=== PATIENT | male | born 1960 | race Caucasian/White ===

== ENCOUNTER 2017-08-08 19:01 | Inpatient (IN) | payer OTHER, SELFPAY ==
[2017-08-08 19:21] LABS: Bilirubin Negative (Negative); Blood, Urine Negative (Negative); Glucose, Urine (Dipstick) >=1000 mg/dL (Negative); Ketone, Urine Trace mg/dL (Negative); Nitrite Negative (Negative); Protein, Urine (Dipstick) Negative (Neg-Trace)
[2017-08-08] MEDS ORDERED: Bupivacaine 0.25% HCL 30 ML VIAL ONE (20:54)
[2017-08-08] MEDS ORDERED: Midazolam HCl 2 mg/2 ml Vial ONE (21:00)
[2017-08-08] MEDS ORDERED: Fentanyl 250 MCG/5 ML VIAL ONE (21:00)
[2017-08-08] MEDS ORDERED: Glycopyrrolate 0.2 MG/ML 5 ML SYRINGE ONE (21:29)
[2017-08-08] MEDS ORDERED: Propofol 200 MG/20 ML VIAL ONE (21:29)
[2017-08-08] MEDS ORDERED: Succinylcholine Chloride 20 MG/ML 10 ml SYRINGE FS ONE (21:29)
[2017-08-08] MEDS ORDERED: Ondansetron HCl/PF 4 MG/2 ML Vial ONE (21:29)
[2017-08-08] MEDS ORDERED: Lidocaine 2% PF 10 ML AMP (For Epidural Use) ONE (21:29)
[2017-08-08] MEDS ORDERED: Dexamethasone 20 MG/5 ML VIAL ONE (21:29)
[2017-08-08] MEDS ORDERED: Ketorolac Tromethamine 30 MG/ML VIAL ONE (21:29)
--- NOTE | 2017-08-08 21:30 | PDOC.EVN ---
Event Note - Event Note Event Note: [id number] H&p dictated 1. Scrotal cellulitis and abcess 2. Pain 3. elevated bp plasn: see order
[2017-08-08] MEDS ORDERED: Neomycin-Polymyxin 1 ML AMP ONE (21:36)
--- NOTE | 2017-08-08 21:52 | RAD ---
PORTABLE CHEST ONE VIEW 08/08/17 at 9:03 p.m. HISTORY: Preoperative evaluation. FINDINGS: Comparison made to exam of 11/25/04. The heart size is borderline. The lungs are well expanded without focal areas of consolidation, pneu mothorax, swati pulmonary edema or pleural effusions. IMPRESSION: No acute process. POS: [facility]
--- NOTE | 2017-08-08 22:15 | ULT ---
BILATERAL TESTICULAR ULTRASOUND WITH DOPPLER: (Baig scale, color flow and spectral doppler) 08/08/17 HISTORY: Right scrotal swelling, cellulitis, necrosis, draining abscess in scrotum. FINDINGS: The right testis measures 3.1 x 4.4 x 1.8 cm and the left testis measures 2.7 x 4.8 x 2.6 cm. No alessandra ticular mass or microlithiasis is seen. Flow is demonstrated to both testes. No hydrocele is identif ied on either side. There is a 5 mm epididymal head cyst on the right. Flow is demonstrated to the right epididymis and the tail of the left epididymis. No definite flow is seen in the head of the left epididymis. There is thickening of the wall of the scrotum. No fluid collection is identified. IMPRESSION: Findings suggestive of scrotal cellulitis. POS: [facility]
[2017-08-08] MEDS ORDERED: HYDROcodone/Acetaminophen 5/325 mg Tablet PO PRN (22:19)
[2017-08-08] MEDS ORDERED: Acetaminophen 325 MG TAB PO PRN (22:19)
[2017-08-08] MEDS ORDERED: Ondansetron HCl/PF 4 MG/2 ML Vial IVP PRN ×2 (22:19→23:22)
[2017-08-08] MEDS ORDERED: cloNIDine 0.1 MG TAB PO PRN (22:22)
[2017-08-08] MEDS ORDERED: Vancomycin HCl 1.5 GM in Sodium Chloride 0.9% 250 ML 300 ML IVPB SCH (22:30)
[2017-08-08] MEDS ORDERED: Albuterol Sulfate HFA (OR ONLY) ONE (22:43)
[2017-08-08] MEDS ORDERED: Morphine 2 MG/ML SYRINGE IVP PRN (22:43)
[2017-08-08] MEDS ORDERED: HYDROcodone/Acetaminophen 10/325 mg Tablet PO PRN ×2 (22:59)
[2017-08-08] MEDS ORDERED: Morphine 2 MG/ML SYRINGE SLOW IVP PRN (22:59)
[2017-08-08] MEDS ORDERED: Promethazine HCl 25 MG/ML VIAL SLOW IVP PRN (23:22)
[2017-08-08] MEDS ORDERED: Promethazine HCl 25 MG/ML VIAL IM PRN (23:22)
[2017-08-08] MEDS ORDERED: Fentanyl 100 MCG/2 ML VIAL ONE (23:33)
[2017-08-08] MEDS ORDERED: hydrALAZINE 20 MG/ML VIAL ONE (23:45)
--- NOTE | 2017-08-09 00:13 | HP ---
DATE OF ADMISSION: 08/08/2017 CHIEF COMPLAINT: Scrotal swelling and penile swelling. HISTORY OF PRESENT ILLNESS: Patient is 56 years old male with no significant past medical history, noncompliant, does not follow with anybody, history of alcohol abuse, now came to the ER because of scrotal swelling and penile swelling. The patient initially noticed a boil on the scrotum on and after that Monday, he started having worsening pain and swelling, then Monday he had r uptured and then started having drainage from the scrotal side, constant drainage associated with se jazzmine pain and swelling. He started noticing penile swelling also. Pain even with the touch. Pain is 10/10, constant, worsens with the touch, some relieve with pain medication. Denies any fever, de nies any chills, denies any cough, denies sputum production, denies any chest pain, denies any troub le breathing, denies dizziness, denies lightheadedness. PAST MEDICAL HISTORY: As per HPI. PAST SURGICAL HISTORY: None. SOCIAL HISTORY: Positive for smoking, positive for alcohol, denies any drugs. FAMILY HISTORY: Denies any heart problems. REVIEW OF SYSTEMS: Constitutional: Denies any fever, denies any chills. Eyes: Vision problems. Denies any hearing loss. Neck: Denies neck pain. Cardiovascular system: Denies any chest pain, d enies palpitations. Respiratory system: Denies any cough, denies sputum production. Gastrointesti nal: Denies abdominal pain, denies nausea or vomiting. Genitourinary: Positive for scrotal swelli ng. Positive for penile swelling. Musculoskeletal: Denies any joint deformities. Integumentary: Positive for arrhythmia. Psychiatric: Denies any depression, anxiety. All other review of system s are reviewed and are negative. PHYSICAL EXAMINATION: CONSTITUTIONAL/VITAL SIGNS: At the time of H and P performed, blood pressure is 191/94, pulse ox 94 %, respiratory rate 20, heart rate 80. GENERAL: The patient appears comfortable. HEENT: Pupils equal, round, and reactive. Anterior naris patent. Nose normal. Ears normal. Teet h intact. Tongue is moist. NECK: Supple. No JVD. CARDIOVASCULAR: S1, S2 present. Regular rate and rhythm. No murmurs, no rubs, no gallops. RESPIRATORY SYSTEM: No wheezing, no rhonchi. Breath sounds bilaterally. GASTROINTESTINAL: Abdomen, soft, nontender, no guarding, no organomegaly, no masses felt. MUSCULOSKELETAL: Positive for scrotal swelling, positive for drainage seen. Positive for edema. P ositive for swelling, positive for tender to palpate. Positive for penile swelling also. PSYCHIATRIC: Mood is appropriate at this time. CRANIAL NERVE SYSTEM: Awake, follows commands. Strength intact, sensory intact. INTEGUMENTARY: Positive for scrotal erythema and penile erythema. LABORATORY DATA: At the time of H and P performed, white count 6.5, hemoglobin 15.4, platelet count is 290. Sodium 131, potassium 4, chloride is 92, CO2 26, BUN of 12, creatinine of 1.01. AST 21, A LT 27, alkaline phosphatase is 152. Serum protein 7.2, albumin 3.6. UA specific gravity 1.05, gluc ose greater than 1000. ASSESSMENT AND PLAN: The patient is 56 years old male admitted with scrotal pain. 1. Scrotal cellulitis/abscess. CT head done in the outside ER showed possible gas collection. ED physician already spoke to the urologist. The patient is on the way to the operating room for I and D. We will keep the patient n.p.o. We will start patient on broad-spectrum antibiotics. We will consult ID to evaluate the patient also. 2. Pain, p.r.n. pain meds. 3. Elevated blood pressure. Need to the monitor blood pressure closely. We will start patient on p.r.n. clonidine, p.r.n., hydralazine. The case was discussed in detail with the patient. Patient is FULL CODE.
--- NOTE | 2017-08-09 01:16 | OP ---
DATE OF PROCEDURE: 08/08/2017 PREOPERATIVE DIAGNOSIS: Right groin abscess. POSTOPERATIVE DIAGNOSIS: Right groin abscess. PROCEDURE: Debridement, incision and drainage and wound VAC placement, right groin abscess. SURGEON: Wally Chatterjee M.D. ANESTHESIA: General. ESTIMATED BLOOD LOSS: Minimal. COMPLICATIONS: None. SPECIMEN: Cultures taken. FINDINGS: Tracks up to anterior medial thigh and to the medial right thigh going distally towards t he knee. I was called in to the OR by Dr. Karimi for this was the presumed scrotal abscess bec winston more into the groin. She was concerned because it was tracking more towards the vessels. TECHNIQUE: I was called to the OR, the patient was already prepped and draped and the wound had alr matt been opened. More debridement was performed. The wound is tunneling more lateral. This was o pened up by me to a larger pocket. No significant additional purulence was obtained. There was no necrotic tissue. The wound was irrigated. A wound VAC was placed in the OR. The patient was en ro iqugmiut to recovery in stable condition. All instrument counts, needle counts, and lap counts were erik ect.
[2017-08-09] MEDS: Sodium Chloride 0.9% 1,000 ML IV SCH ×4 (01:18→20:10)
[2017-08-09] MEDS: Piperacillin/Tazobactam 3.375 GM in Sodium Chloride 0.9% 100 ML IVPB SCH ×5 (01:18→23:39)
--- NOTE | 2017-08-09 01:47 | OP ---
PREOPERATIVE DIAGNOSIS: Rule out right scrotal inguinal abscess with necrotizing fasciitis. POSTOPERATIVE DIAGNOSIS: Rule out right scrotal inguinal abscess with necrotizing fasciitis. PROCEDURE: Right groin debridement, Miller catheter placement. SURGEON: Suki Karimi D.O. ANESTHESIA: General. COMPLICATIONS: None apparent. INTRAOPERATIVE CONSULTATION: General Surgery to rule out right inguinal, thigh fasciitis. INTRAOPERATIVE CULTURES: Wound cultures obtained. ESTIMATED BLOOD LOSS: Minimal. COMPLICATIONS: None apparent. DRAINS: A 16-Guinean coude Miller catheter to gravity 10 mL balloon, wound VAC placed by General Surgery. INDICATIONS FOR THE PROCEDURE AND HISTORY: Mr. Thompson is a 56-year-old male with history of chronic alcohol abuse, tobacco abuse, who presented with 4-days history of right groin discharge. He states that this started has a small boil in this region, then subsequently had spontaneous rupture or pustular drainage. Due to progressive swelling of the scrotum, foreskin he presented to the emergency room. CT demonstrated a small pocket of air in his right groin, as this was concerning for necrotizing fasciitis. The patient was advised regarding emergent intraoperative exam under anesthesia. Physical exam in the emergency room was limited due to patient having significant discomfort. Indications for surgical exploration was discussed with him in detail and all questions were answered to his satisfaction. He desired to proceed. DESCRIPTION OF THE PROCEDURE: After an informed consent is signed, the patient is taken to the operating room, placed in a dorsal lithotomy position with the genital area prepped and draped in the usual surgical sterile fashion. The patient was placed in the dorsal lithotomy position and the genital area was inspected. There was a malodor discharged from the patient's groin region. There was reactive erythema of the scrotum and the foreskin. The foreskin was able to be retracted without difficulty and a 16 Guinean coude catheter was passed without any resistance and clear yellow urine was obtained. Digital rectal exam demonstrated no significant nodularity volume approximately 25-30 grams. Physical exam demonstrated 2-3 areas of spontaneous opening in his right groin at the junction of the thigh and the inguinal canal. There was pustular discharge draining from this region. I did open this connecting the skin defect, which demonstrated minimal purulent discharge as this cavity was empty from spontaneous drainage. There was some indurated subcutaneous tissue underneath just superior to the medial aspect of the thigh. The wound was able to be probe to the superior aspect of the inguinal canal. I did not see any gross purulent discharge. Wound culture was obtained. I did inspect the lateral aspect of the scrotum, the area of the cavity that was spontaneously draining did not involve the dartos fascia of the right hemiscrotum. I did probe the subcutaneous tissue, which demonstrated no evidence of fluctuance, loculated cavity involving the right deeper structures of the scrotum. As I was probing the wound, I could not rule out a medial thigh or inguinal abscess. General Surgery consultation was obtained intraoperatively, Dr. Chatterjee explored the medial thigh in the inguinal region and subsequently placed a wound VAC. Please see his operative report for dictation. The patient was then transported to the recovery room in stable condition. As he has hyponatremia consistent with chronic alcohol use, elevated blood sugars consistent with occult diabetes. The patient is to be admitted under medical service for strict control of his diabetes and broad-spectrum antibiotics and wound VAC is to continue. DUANE
[2017-08-09] MEDS: Vancomycin HCl 1.5 GM in Sodium Chloride 0.9% 250 ML 300 ML IVPB SCH ×2 (02:14→13:41)
[2017-08-09 04:13] VITALS: BMI 43.5
[2017-08-09 04:19] LABS: #Lymphocytes 0.5 thou/uL (1.20-3.40); #Monocytes 0.2 thou/uL (0.11-0.59); #Neutrophils 6.3 thou/uL (1.40-6.50); %Basophils 0.3 % (0.0-1.0); %Eosinophils 0.1 % (0.0-10.0); %Lymphocytes 7.5 % (21.0-51.0); %Monocytes 2.2 % (0.0-10.0); Hematocrit 42.7 % (42.0-52.0); Red Blood Cell (RBC) Count 4.16 mill/uL (4.70-6.10); White Blood Cell (WBC) Count 7.1 thou/uL (4.8-10.8)
[2017-08-09 04:34] LABS: Anion Gap 13 mmol/L (10-20); BUN (Urea Nitrogen) 8 mg/dL (8.4-25.7); Calc. Creatinine Clearance 186 mL/min (70-130); Calcium 8.5 mg/dL (7.8-10.44); Carbon Dioxide 26 mmol/L (22-29); Chloride 99 mmol/L (98-107); Estimated GFR-MDRD Greater than 90
[2017-08-09] MEDS ORDERED: Dextrose 50% Abboject 50 ML SYRINGE IVP PRN (05:20)
[2017-08-09] MEDS ORDERED: Dextrose 5% in Water 1,000 ML IV PRN (05:20)
[2017-08-09] MEDS: HumaLOG 300 UNITS/3 ML VIAL SC PRN ×2 (06:00→16:35)
--- NOTE | 2017-08-09 06:03 | CON ---
DATE OF CONSULTATION: 08/08/2017 REASON FOR CONSULTATION: Right scrotal groin abscess, rule out Sivakumar's gangrene, necrotizing fasciitis. HISTORY OF PRESENT ILLNESS: Mr. Thompson is a 56-year-old male, denies past medical history, history of chronic alcohol abuse, presents for evaluation of right groin, scrotal swelling. He states that this started off as a small boil along his right groin however, it spontaneously ruptured on Monday. Due to progressive increased swelling and discomfort of his right hemiscrotum and also difficulty retracting his foreskin, he presented to [facility] Emergency Room. CT of the abdomen and pelvis with IV contrast was obtained demonstrating small focus of air in the right groin region , therefore, transitioned to [facility] for higher level of care. Upon presentation, he is afebrile, resting comfortably. He has received Zosyn, vancomycin, Novolin as his sugar was found to be grossly elevated over 500. His urinalysis demonstrates greater than 1000 glucose. He denies history of diabetes. He has approximately 7-8 drinks per day, has history of tobacco abuse 20 pack years. Denies illicit drug use. He denies history of hepatitis, sexually transmitted disease, otherwise his urinary flow is adequate per patient. 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 PAST MEDICAL HISTORY: As above. PAST SURGICAL HISTORY: None, denied by patient. PSYCHIATRIC HISTORY: Negative. SOCIAL HISTORY: Chronic alcohol use, 7 drinks per day. Denies illicit drug use , [id number] smoking history. ALLERGIES: No known drug allergies. HOME MEDICATIONS: None. The patient has received vancomycin, Zosyn, Novolin R in the emergency room. PHYSICAL EXAMINATION: VITAL SIGNS: Stable at 97.8, 98% on room air. Blood pressure is elevated at 170/103, currently 145/90. HEENT: Grossly unremarkable. GENERAL: The patient is somewhat disheveled, poorly kempt. HEART: Regular rate. LUNGS: Clear. ABDOMEN: Protuberant, obese, globular. GENITOURINARY: Demonstrates uncircumcised phallus, there is evidence of prepucial edema which I have difficulty retracting the foreskin as he has discomfort. The left hemiscrotum is grossly unremarkable with the testes palpated within the scrotal sac. The right testis and the hemiscrotum is tender to touch. Therefore, a physical exam is suboptimal. However, I was able to see a fistulous tract along his right groin lateral to the scrotum, draining pustular drainage with mal odorous discharge. There is no gross crepitus per se, but there is reactive erythema of his groin, and his right lateral scrotum. Again, physical exam is somewhat suboptimal and he is not cooperative due to discomfort. EXTREMITIES: No cyanosis, clubbing or edema. PERTINENT LABORATORY DATA: White count is 6, hemoglobin 15, platelets 290. Sodium 131, BUN 12, creatinine 1.0. Lactic acid is normal. LFTs; alkaline phosphatase is 152. Urinalysis; 1000 glucose, otherwise unremarkable. CT of the abdomen and pelvis with IV contrast demonstrates kidney, bladder grossly unremarkable. There is a small focus of air in the right groin region consistent with the physical exam draining discharge. KENY is deferred at this time. Scrotal ultrasound demonstrates bilateral flow with thickening of the scrotal skin consistent with cellulitis. IMPRESSION AND PLAN: Mr. Thompson is a 56-year-old male with a right groin lateral scrotal abscess. The focus of air in the CAT scan is consistent with fistulous tract that is open draining pustular drainage. There is no gross crepitus on exam. However, given the extent of drainage and physical exam, recommend exam under anesthesia wide debridement. Possible right orchiectomy, wide debridement of adjacent structures discussed with patient in detail and he desires to proceed. Discussed with Hospitalist. We will admit for medical admission due to diabetes, hyponatremia, uncontrolled hypertension. DUANE
[2017-08-09 08:54] LABS: Hemoglobin A1c 12.5 % (4.0-6.0)
[2017-08-09] MEDS ORDERED: FLU VACC QS2017-18 36 mo. & older 0.5 ML SYRINGE IM ONE (09:00)
--- NOTE | 2017-08-09 09:06 | PRG ---
DATE OF SERVICE: 08/09/2017 SUBJECTIVE: The patient is resting comfortably. PHYSICAL EXAMINATION: VITAL SIGNS: Vital signs are stable, afebrile. ABDOMEN: Soft, nontender, nondistended. GENITOURINARY: A wound VAC is in place. The penile scrotal tissue demonstrates some reactive erythema and edema. There is no gross evidence of crepitus, induration, fluctuance appreciated. Miller catheter draining concentrated yellow urine. EXTREMITIES: No cyanosis, clubbing or edema. IMPRESSION AND PLAN: 1. Mr. Thompson is a 56-year-old male with history of chronic alcohol abuse. 2. History of tobacco abuse. 3. Presented with right groin abscess. Status post incision and drainage/ .debridement Intraoperative findings and exam under anesthesia demonstrates no evidence of scrotal involvement. Intraoperative consultation with General Surgery was obtained to rule out medial thigh abscess. Wound VAC placed by General Surgery. Wound culture was obtained which is pending thus far. Recommend continue broad spectrum antibiotics. May remove his Miller catheter tomorrow call with any questions or concerns or concerning regarding scrotal involvement. DUANE
[2017-08-09] MEDS: Tamsulosin HCl 0.4 MG CAP PO SCH (09:09)
[2017-08-09] MEDS ORDERED: Ondansetron ODT 4 MG TAB PO PRN (09:22)
[2017-08-09] MEDS ORDERED: Loperamide HCl 2 MG CAP PO PRN (09:22)
[2017-08-09] MEDS ORDERED: Chloraseptic Spray 180 ml Bottle PO PRN (09:22)
[2017-08-09] MEDS ORDERED: Mag-Al 1200 mg/1200 mg/30 ML UDCUP PO PRN (09:22)
[2017-08-09] MEDS ORDERED: Senokot 8.6 MG TAB PO PRN (09:22)
[2017-08-09] MEDS ORDERED: Diabetic Tussin 200 MG/10 ML UDCUP PO PRN (09:22)
[2017-08-09] MEDS ORDERED: Temazepam 15 MG CAP PO PRN (09:22)
[2017-08-09] MEDS ORDERED: traMADol HCl 50 MG TAB PO PRN (09:22)
[2017-08-09] MEDS ORDERED: Sodium Chloride 0.65% Nasal 44 ML BOT EA NARE PRN (09:22)
[2017-08-09] MEDS ORDERED: HYDROcodone/Acetaminophen 5/325 mg Tablet PO PRN (09:22)
[2017-08-09] MEDS ORDERED: Eucerin (Mineral Oil/Petrolatum,White) 30 gm Jar TOP PRN (09:22)
[2017-08-09] MEDS ORDERED: Artificial Tears 18 DROP/0.9 ML EA EYE PRN (09:22)
[2017-08-09] MEDS ORDERED: Loratadine 10 MG TAB PO PRN (09:22)
[2017-08-09] MEDS ORDERED: Milk Of Magnesia 30 ML UDCUP PO PRN (09:22)
--- NOTE | 2017-08-09 10:47 | PDOC.PN ---
- Subjective Encounter Start Date: 08/09/17 Encounter Start Time: 09:50 -: old records requested/rev Patient seen and examined. No new complaints. No overnight events - Objective Resuscitation Status: Resuscitation Status FULL:Full Resuscitation MAR Reviewed: Yes Vital Signs & Weight: Vital Signs (12 hours) Temp Pulse Resp BP Pulse Ox 08/09/17 08:30 97.6 F 77 20 143/75 H 94 L 08/09/17 04:00 98.6 F 90 20 145/76 H 97 08/09/17 02:19 92 18 135/79 95 08/09/17 01:10 98.4 F 95 18 164/81 H 93 L 08/09/17 00:42 81 12 96 08/09/17 00:00 98.4 F 95 18 94 L Weight Weight 270 lb 1.06 oz I&O: 08/08/17 08/09/17 08/10/17 06:59 06:59 06:59 Intake Total 1100 Output Total 850 Balance 250 Result Diagrams: 08/09/17 03:49 08/09/17 03:49 Additional Labs: Accuchecks 08/09/17 08/08/17 04:41 23:04 POC Glucose 270 H 220 H Phys Exam - Physical Examination Constitutional: NAD HEENT: PERRLA, moist MMs, sclera anicteric Neck: no JVD, supple Respiratory: no wheezing, no rales, no rhonchi Cardiovascular: RRR, no significant murmur, no rub Gastrointestinal: soft, non-tender, no distention, positive bowel sounds Musculoskeletal: no edema, pulses present wound vac+ at surgical site Neurological: non-focal, normal sensation, moves all 4 limbs Lymphatic: no nodes Psychiatric: normal affect, A&O x 3 Skin: no rash, normal turgor Dx/Plan (1) Abscess of groin, right Code(s): L02.214 - CUTANEOUS ABSCESS OF GROIN Status: Acute Comment: s/p I & D and now wound care (2) Cellulitis of scrotum Code(s): N49.2 - INFLAMMATORY DISORDERS OF SCROTUM Status: Acute (3) Hypertension Code(s): I10 - ESSENTIAL (PRIMARY) HYPERTENSION Status: Acute (4) New onset type 2 diabetes mellitus Code(s): E11.9 - TYPE 2 DIABETES MELLITUS WITHOUT COMPLICATIONS Status: Acute (5) Alcohol abuse Code(s): F10.10 - ALCOHOL ABUSE, UNCOMPLICATED Status: Chronic (6) Macrocytosis without anemia Code(s): D75.89 - OTHER SPECIFIED DISEASES OF BLOOD AND BLOOD-FORMING ORGANS Status: Chronic (7) Morbid obesity with BMI of 40.0-44.9, adult Code(s): E66.01 - MORBID (SEVERE) OBESITY DUE TO EXCESS CALORIES; Z68.41 - BODY MASS INDEX (BMI) 40.0-44.9, ADULT Status: Chronic - Plan cont current plan of care, continue antibiotics, outreach and education social worker * start glyburide 2.5 mg and metformin 1000 mg po bid * checked HBA1c, TSH and lipid profile * start lisnopril 5 mg po daily * continue vancomycin and zosyn * wound care * continue pain control * medication reviewed as below * symptomatic treatment * dietary and diabetic education * start folic acid, thiamin, B12 therapy * counselled to avoid alcohol. Review of Systems - Review of Systems ENT: negative: Ear Pain, Ear Discharge, Nose Pain, Nose Discharge, Nose Congestion, Mouth Pain, Mouth Swelling, Throat Pain, Throat Swelling, Other Respiratory: negative: Cough, Dry, Shortness of Breath, Hemoptysis, SOB with Excertion, Pleuritic Pain, Sputum, Wheezing Cardiovascular: negative: Chest Pain, Palpitations, Orthopnea, Paroxysmal Noc. Dyspnea, Edema, Light Headedness, Other Gastrointestinal: negative: Nausea, Vomiting, Abdominal Pain, Diarrhea, Constipation, Melena, Hematochezia, Other Genitourinary: negative: Dysuria, Frequency, Incontinence, Hematuria, Retention , Other Musculoskeletal: negative: Neck Pain, Shoulder Pain, Arm Pain, Back Pain, Hand Pain, Leg Pain, Foot Pain, Other - Medications/Allergies Allergies/Adverse Reactions: Allergies Allergy/AdvReac Type Severity Reaction Status Date / Time No Known Drug Allergies Allergy Verified 08/08/17 22:45 Medications: Current Medications Acetaminophen (Tylenol) 650 mg PO Q4H PRN PRN Reason: Headache/Fever or Pain Hydrocodone Bitart/Acetaminophen ([place] 10/325) 1 tab PO Q4H PRN PRN Reason: Mild-Moderate Pain (1-5) Hydrocodone Bitart/Acetaminophen ([place] 10/325) 2 tab PO Q4H PRN PRN Reason: Moderate to Severe Pain (6-10) Hydrocodone Bitart/Acetaminophen ([place] 5/325) 1 tab PO Q4H PRN PRN Reason: Moderate Pain (4-6) Al Hydroxide/Mg Hydroxide (Maalox) 15 ml PO Q4H PRN PRN Reason: Heartburn or Indigestion Artificial Tears (Tears Naturale) 0 drop EA EYE PRN PRN PRN Reason: Dry Eyes Clonidine HCl (Catapres) 0.1 mg PO Q4H PRN PRN Reason: SBP GREATER THAN 160 Cyanocobalamin (Vitamin B-12) 1,000 mcg PO DAILY [facility] Dextrose/Water (Dextrose 50%) 25 gm IVP PRN PRN PRN Reason: HYPOGLYCEMIA PROTOCOL Famotidine (Pepcid) 20 mg PO BID [facility] Folic Acid (Folvite) 1 mg PO DAILY [facility] Glucagon (Glucagon) 1 mg IM PRN PRN PRN Reason: HYPOGLYCEMIA PROTOCOL Glyburide (Micronase) 2.5 mg PO QAM-WM [facility] Guaifenesin (Robitussin Sf) 200 mg PO Q4H PRN PRN Reason: Cough Hydralazine HCl (Apresoline) 10 mg SLOW IVP Q4H PRN PRN Reason: SBP Greater Than 170 Sodium Chloride (Normal Saline 0.9%) 1,000 mls @ 150 mls/hr IV .Q6H40M [facility] Last Admin: 08/09/17 06:47 Dose: Not Given Piperacillin Sod/Tazobactam (Sod 3.375 gm/ Sodium Chloride) 100 mls @ 200 mls/ hr IVPB Q6HR [facility] Last Admin: 08/09/17 05:57 Dose: 100 mls Vancomycin HCl 1.5 gm/ Sodium (Chloride) 300 mls @ 200 mls/hr IVPB Q12H [facility] Last Admin: 08/09/17 02:14 Dose: 300 mls Dextrose/Water (D5w) 1,000 mls @ 0 mls/hr IV INF PRN; As Directed PRN Reason: HYPOGLYCEMIA PROTOCOL Insulin Human Lispro (Humalog) 0 units SC .MODERATE SLIDING SC PRN; Protocol PRN Reason: MODERATE SLIDING SCALE Last Admin: 08/09/17 06:00 Dose: 8 unit Lisinopril (Zestril) 5 mg PO DAILY [facility] Loperamide HCl (Imodium) 2 mg PO PRN PRN PRN Reason: Diarrhea/Loose Stools Loratadine (Claritin) 10 mg PO DAILYPRN PRN PRN Reason: Sinus Symptoms Magnesium Hydroxide (Milk Of Magnesium) 30 ml PO DAILYPRN PRN PRN Reason: Constipation Metformin HCl (Glucophage) 1,000 mg PO BID-WM [facility] Mineral Oil/White Petrolatum (Eucerin Cream) 0 gm TOP BIDPRN PRN PRN Reason: Dry Skin Morphine Sulfate (Morphine Sulfate) 2 mg SLOW IVP Q4H PRN PRN Reason: Mild-Moderate Pain (1-5) Morphine Sulfate (Morphine Sulfate) 4 mg SLOW IVP Q4H PRN PRN Reason: Moderate to Severe Pain (6-10) Last Admin: 08/09/17 06:05 Dose: 4 mg Ondansetron HCl (Zofran) 4 mg IVP Q6H PRN PRN Reason: Nausea/Vomiting Ondansetron HCl (Zofran Odt) 4 mg PO Q6H PRN PRN Reason: Nausea/Vomiting Phenol (Chloraseptic [place] 180 Ml Bot) 0 ml PO PRN PRN PRN Reason: Sore Throat Saccharomyces Boulardii (Florastor) 250 mg PO DAILY [facility] Senna (Senokot) 2 tab PO HSPRN PRN PRN Reason: Constipation Sodium Chloride (Flush - Normal Saline) 10 ml IVF PRN PRN PRN Reason: Saline Flush Sodium Chloride (Sharkey Nasal [place] 0.65%) 0 ml EA NARE QIDPRN PRN PRN Reason: Nasal Congestion Tamsulosin HCl (Flomax) 0.4 mg PO DAILY [facility] Last Admin: 08/09/17 09:09 Dose: 0.4 mg Temazepam (Restoril) 15 mg PO HSPRN PRN PRN Reason: Insomnia Thiamine HCl (Thiamine) 100 mg PO DAILY [facility] Tramadol HCl (Ultram) 50 mg PO Q4H PRN PRN Reason: Moderate Pain (4-6)
[2017-08-09] MEDS: metFORMIN 500 MG TAB PO SCH (16:35)
[2017-08-09] MEDS: Famotidine 20 MG TAB PO SCH (20:09)
--- NOTE | 2017-08-09 20:32 | CON ---
DATE OF CONSULTATION: 08/09/2017 REASON FOR CONSULTATION: Scrotal abscess. HISTORY OF PRESENT ILLNESS: A 56-year-old, second admission to this hospital, who developed an infl ammatory process in the right groin and was admitted yesterday. He initially developed right-sided scrotal swelling and he noticed a small abscess in that location, which he proceeded to squeeze and drained. This was followed by progressively worsening pain and swelling. No headaches, no visual s ymptoms, sore throat, odynophagia, dysphagia, no cough or sputum production or chest pain, no abdomi nal pain, no diarrhea, no joint symptoms. No back pain. PAST MEDICAL HISTORY: Includes excessive intake of alcoholic beverages, probably alcoholic beverage dependency syndrome. PAST SURGICAL HISTORY: Negative. SOCIAL HISTORY: He works with septic tanks, drinks daily up to 9 beers a day and smokes half pack a day. He is from his previous many years ago. Lives in [place] by himself. FAMILY HISTORY: Noncontributory. CURRENT MEDICATIONS: Include Zosyn and vancomycin, clonidine and Pepcid. PHYSICAL EXAMINATION: VITAL SIGNS: Temperature normal. Blood pressure 160/80, pulse 78, respirations 20, O2 saturation 9 7%. SKIN: Shows the area in the scrotal tissue with prior area of drainage in a negative pressure dress ing. There is swelling of the penile area and mild swelling of the scrotum, some erythema noted. P eripheral IV access. No lymphadenopathy. HEENT: Quite a bit of facial flushing. Periorbital edema. Conjunctivae are normal. Oral cavity i s normal. Numerous teeth in place with quite a bit of decay and gum disease. NECK: Supple, no jugular venous distention. LUNGS: With symmetric clear breath sounds. HEART: S1 and S2, regular rate. No S3 or S4. ABDOMEN: Soft, not distended or tender. No ascites. No bladder distention. EXTREMITIES: Pulses are 2+ in dorsalis pedis. No joint inflammatory activity. Moves all extremiti es equally. Plantar responses are flexor. No clonus. NEUROLOGIC: Cognitive function appears to be intact. LABORATORY DATA: White cell count 6.5-7.1, hemoglobin 15, and platelets 290 with 89% neutrophils. Sodium 134, creatinine 0.76. Liver profile with alkaline phosphatase 152, transaminases normal, alb umin 3.6. Urinalysis with hyperglycemia. Microbiology with yet no growth in cultures from the righ t groin. Two sets of blood cultures, no growth and urine culture negative as well. Operative repor t reviewed. The patient appeared to have a superficial abscess, no necrotizing features. The proce ss did not invade the deeper structures of the scrotum. The general surgeon was involved as well. ASSESSMENT: 1. Alcoholism. 2. Right scrotal abscess, status post incision and drainage. No evidence of necrotizing features. DISCUSSION: The most likely scenario is Staphylococcal abscess, although polymicrobial abscess is p ossible as well. Continue current regimen and wait for further information from the cultures to det ermine outpatient management. Hopefully, we will check hepatitis C and HIV as well as RPR.
[2017-08-09] MEDS ORDERED: HumaLOG 300 UNITS/3 ML VIAL SC PRN (21:50)
[2017-08-10 00:50] LABS: Vancomycin, Trough 11.9 ug/mL
[2017-08-10] MEDS: Vancomycin HCl 1.5 GM in Sodium Chloride 0.9% 250 ML 300 ML IVPB SCH ×2 (01:27→14:30)
[2017-08-10] MEDS: Sodium Chloride 0.9% 1,000 ML IV SCH ×2 (05:13→08:07)
[2017-08-10] MEDS: Piperacillin/Tazobactam 3.375 GM in Sodium Chloride 0.9% 100 ML IVPB SCH ×2 (05:13→13:10)
[2017-08-10] MEDS: Morphine 2 MG/ML SYRINGE SLOW IVP PRN ×3 (05:25→17:19)
[2017-08-10] MEDS: HumaLOG 300 UNITS/3 ML VIAL SC PRN ×3 (05:39→17:36)
[2017-08-10] MEDS ORDERED: glyBURIDE 2.5 MG TAB PO SCH (08:00)
[2017-08-10] MEDS: metFORMIN 500 MG TAB PO SCH ×2 (08:04→17:18)
[2017-08-10] MEDS: Famotidine 20 MG TAB PO SCH ×2 (08:05→20:45)
[2017-08-10] MEDS: Tamsulosin HCl 0.4 MG CAP PO SCH (08:06)
[2017-08-10] MEDS: Saccharomyces boulardii 250 MG CAP PO SCH (08:06)
[2017-08-10] MEDS: Folic Acid 1 MG TAB PO SCH (08:06)
[2017-08-10] MEDS: Cyanocobalamin (Vitamin B-12) 1,000 MCG TAB PO SCH (08:06)
--- NOTE | 2017-08-10 08:39 | PRG ---
DATE OF SERVICE: 08/10/2017 SUBJECTIVE: Mr. Thompson has no complaints. He is set for wound VAC change today. PHYSICAL EXAMINATION: He is afebrile. Vital signs are stable. Wound VAC is intact. LABORATORY DATA: Cultures are preliminary and not finished yet. ASSESSMENT: Necrotizing wound right groin, status post I\T\D with wound VAC. Await culture results . PLAN: Continue wound VAC changes, it is going to be difficult to get a home VAC in hand secondary t o insurance status. We will probably need at least 2 additional wound VAC changes that we will put before discharge which will put him here through the weekend.
[2017-08-10] MEDS ORDERED: Lisinopril 5 MG TAB PO SCH (09:00)
--- NOTE | 2017-08-10 10:54 | PDOC.PN ---
- Subjective Encounter Start Date: 08/10/17 Encounter Start Time: 09:30 Patient seen and examined. No new complaints. No overnight events - Objective Resuscitation Status: Resuscitation Status FULL:Full Resuscitation MAR Reviewed: Yes Vital Signs & Weight: Vital Signs (12 hours) Temp Pulse Resp BP BP Pulse Ox 08/10/17 08:05 83 08/10/17 08:00 98.0 F 83 18 95 08/10/17 07:55 98.0 F 83 20 169/98 H 96 08/10/17 05:53 77 171/84 H 08/10/17 04:00 97.8 F 82 20 180/103 H 95 08/09/17 23:43 98.0 F 76 18 159/89 H 97 Weight Admit Weight 270 lb 0.96 oz Weight 270 lb 1.06 oz I&O: 08/09/17 08/10/17 08/11/17 06:59 06:59 06:59 Intake Total 1100 5370 Output Total 850 3476 250 Balance 250 1894 -250 Result Diagrams: 08/09/17 03:49 08/09/17 03:49 Additional Labs: Accuchecks 08/10/17 08/09/17 08/09/17 05:32 20:33 16:34 POC Glucose 218 H 287 H 323 H 08/09/17 11:47 POC Glucose 236 H Phys Exam - Physical Examination Constitutional: NAD HEENT: PERRLA, moist MMs, sclera anicteric Neck: no JVD, supple Respiratory: no wheezing, no rales, no rhonchi Cardiovascular: RRR, no significant murmur, no rub Gastrointestinal: soft, non-tender, no distention, positive bowel sounds wound vac in place Musculoskeletal: no edema, pulses present Neurological: non-focal, normal sensation, moves all 4 limbs Lymphatic: no nodes Psychiatric: normal affect, A&O x 3 Skin: no rash, normal turgor Dx/Plan (1) Abscess of groin, right Code(s): L02.214 - CUTANEOUS ABSCESS OF GROIN Status: Acute Comment: s/p I & D and now wound care (2) Cellulitis of scrotum Code(s): N49.2 - INFLAMMATORY DISORDERS OF SCROTUM Status: Acute (3) Hypertension Code(s): I10 - ESSENTIAL (PRIMARY) HYPERTENSION Status: Acute (4) New onset type 2 diabetes mellitus Code(s): E11.9 - TYPE 2 DIABETES MELLITUS WITHOUT COMPLICATIONS Status: Acute (5) Alcohol abuse Code(s): F10.10 - ALCOHOL ABUSE, UNCOMPLICATED Status: Chronic (6) Macrocytosis without anemia Code(s): D75.89 - OTHER SPECIFIED DISEASES OF BLOOD AND BLOOD-FORMING ORGANS Status: Chronic (7) Morbid obesity with BMI of 40.0-44.9, adult Code(s): E66.01 - MORBID (SEVERE) OBESITY DUE TO EXCESS CALORIES; Z68.41 - BODY MASS INDEX (BMI) 40.0-44.9, ADULT Status: Chronic - Plan cont current plan of care, continue antibiotics, social studies department chair * will change lisinopril 5 mg po bid * increase glyburide 5 mg po daily * medication reviewed as below * symptomatic treatment * wound care * continue IV antibiotics * will need wound vac on discharge. Review of Systems - Review of Systems ENT: negative: Ear Pain, Ear Discharge, Nose Pain, Nose Discharge, Nose Congestion, Mouth Pain, Mouth Swelling, Throat Pain, Throat Swelling, Other Respiratory: negative: Cough, Dry, Shortness of Breath, Hemoptysis, SOB with Excertion, Pleuritic Pain, Sputum, Wheezing Cardiovascular: negative: Chest Pain, Palpitations, Orthopnea, Paroxysmal Noc. Dyspnea, Edema, Light Headedness, Other Gastrointestinal: negative: Nausea, Vomiting, Abdominal Pain, Diarrhea, Constipation, Melena, Hematochezia, Other Genitourinary: negative: Dysuria, Frequency, Incontinence, Hematuria, Retention , Other Musculoskeletal: negative: Neck Pain, Shoulder Pain, Arm Pain, Back Pain, Hand Pain, Leg Pain, Foot Pain, Other - Medications/Allergies Allergies/Adverse Reactions: Allergies Allergy/AdvReac Type Severity Reaction Status Date / Time No Known Drug Allergies Allergy Verified 08/08/17 22:45 Medications: Current Medications Acetaminophen (Tylenol) 650 mg PO Q4H PRN PRN Reason: Headache/Fever or Pain Hydrocodone Bitart/Acetaminophen ([place] 10/325) 1 tab PO Q4H PRN PRN Reason: Mild-Moderate Pain (1-5) Hydrocodone Bitart/Acetaminophen ([place] 10/325) 2 tab PO Q4H PRN PRN Reason: Moderate to Severe Pain (6-10) Hydrocodone Bitart/Acetaminophen ([place] 5/325) 1 tab PO Q4H PRN PRN Reason: Moderate Pain (4-6) Al Hydroxide/Mg Hydroxide (Maalox) 15 ml PO Q4H PRN PRN Reason: Heartburn or Indigestion Artificial Tears (Tears Naturale) 0 drop EA EYE PRN PRN PRN Reason: Dry Eyes Clonidine HCl (Catapres) 0.1 mg PO Q4H PRN PRN Reason: SBP GREATER THAN 160 Cyanocobalamin (Vitamin B-12) 1,000 mcg PO DAILY [facility] Last Admin: 08/10/17 08:06 Dose: 1,000 mcg Dextrose/Water (Dextrose 50%) 25 gm IVP PRN PRN PRN Reason: HYPOGLYCEMIA PROTOCOL Famotidine (Pepcid) 20 mg PO BID [facility] Last Admin: 08/10/17 08:05 Dose: 20 mg Folic Acid (Folvite) 1 mg PO DAILY [facility] Last Admin: 08/10/17 08:06 Dose: 1 mg Glucagon (Glucagon) 1 mg IM PRN PRN PRN Reason: HYPOGLYCEMIA PROTOCOL Glyburide (Diabeta) 5 mg PO QAM-[facility] Guaifenesin (Robitussin Sf) 200 mg PO Q4H PRN PRN Reason: Cough Hydralazine HCl (Apresoline) 10 mg SLOW IVP Q4H PRN PRN Reason: SBP Greater Than 170 Piperacillin Sod/Tazobactam (Sod 3.375 gm/ Sodium Chloride) 100 mls @ 200 mls/ hr IVPB Q6HR [facility] Last Admin: 08/10/17 05:13 Dose: 100 mls Vancomycin HCl 1.5 gm/ Sodium (Chloride) 300 mls @ 200 mls/hr IVPB Q12H [facility] Last Admin: 08/10/17 01:27 Dose: 300 mls Dextrose/Water (D5w) 1,000 mls @ 0 mls/hr IV INF PRN; As Directed PRN Reason: HYPOGLYCEMIA PROTOCOL Insulin Human Lispro (Humalog) 0 units SC .MODERATE SLIDING SC PRN; Protocol PRN Reason: MODERATE SLIDING SCALE Last Admin: 08/10/17 05:39 Dose: 4 unit Insulin Human Lispro (Humalog) 0 units SC .BEDTIME SLIDING SC PRN; Protocol PRN Reason: BEDTIME SLIDING SCALE Last Admin: 08/09/17 22:04 Dose: 3 unit Lisinopril (Zestril) 5 mg PO BID [facility] Loperamide HCl (Imodium) 2 mg PO PRN PRN PRN Reason: Diarrhea/Loose Stools Loratadine (Claritin) 10 mg PO DAILYPRN PRN PRN Reason: Sinus Symptoms Magnesium Hydroxide (Milk Of Magnesium) 30 ml PO DAILYPRN PRN PRN Reason: Constipation Metformin HCl (Glucophage) 1,000 mg PO BID-[facility] Last Admin: 08/10/17 08:04 Dose: 1,000 mg Mineral Oil/White Petrolatum (Eucerin Cream) 0 gm TOP BIDPRN PRN PRN Reason: Dry Skin Miscellaneous Medication (Pharmacy To Dose) 1 each IVPB PRN PRN PRN Reason: Pharmacy to dose Morphine Sulfate (Morphine Sulfate) 2 mg SLOW IVP Q4H PRN PRN Reason: Mild-Moderate Pain (1-5) Morphine Sulfate (Morphine Sulfate) 4 mg SLOW IVP Q4H PRN PRN Reason: Moderate to Severe Pain (6-10) Last Admin: 08/10/17 05:25 Dose: 4 mg Ondansetron HCl (Zofran) 4 mg IVP Q6H PRN PRN Reason: Nausea/Vomiting Ondansetron HCl (Zofran Odt) 4 mg PO Q6H PRN PRN Reason: Nausea/Vomiting Phenol (Chloraseptic [place] 180 Ml Bot) 0 ml PO PRN PRN PRN Reason: Sore Throat Saccharomyces Boulardii (Florastor) 250 mg PO DAILY [facility] Last Admin: 08/10/17 08:06 Dose: 250 mg Senna (Senokot) 2 tab PO HSPRN PRN PRN Reason: Constipation Sodium Chloride (Flush - Normal Saline) 10 ml IVF PRN PRN PRN Reason: Saline Flush Sodium Chloride ([place] Nasal [place] 0.65%) 0 ml EA NARE QIDPRN PRN PRN Reason: Nasal Congestion Tamsulosin HCl (Flomax) 0.4 mg PO DAILY [facility] Last Admin: 08/10/17 08:06 Dose: 0.4 mg Temazepam (Restoril) 15 mg PO HSPRN PRN PRN Reason: Insomnia Thiamine HCl (Thiamine) 100 mg PO DAILY [facility] Last Admin: 08/10/17 08:06 Dose: 100 mg Tramadol HCl (Ultram) 50 mg PO Q4H PRN PRN Reason: Moderate Pain (4-6)
[2017-08-10] MEDS: glyBURIDE 5 MG TAB PO SCH (17:18)
[2017-08-10] MEDS: Piperacillin/Tazobactam 3.375 GM, Admixture Fee 1 EACH in Sodium Chloride 0.9% 100 ML IVPB SCH (19:21)
[2017-08-10] MEDS: Lisinopril 5 MG TAB PO SCH (20:45)
[2017-08-11 00:14] LABS: Vancomycin, Trough 14.9 ug/mL
[2017-08-11] MEDS: Piperacillin/Tazobactam 3.375 GM, Admixture Fee 1 EACH in Sodium Chloride 0.9% 100 ML IVPB SCH ×4 (00:41→18:23)
[2017-08-11] MEDS: Vancomycin HCl 1.5 GM in Sodium Chloride 0.9% 250 ML 300 ML IVPB SCH ×2 (01:16→15:24)
[2017-08-11] MEDS ORDERED: Aspirin 81 mg Enteric Coated Tablet ONE (04:50)
[2017-08-11] MEDS: HumaLOG 300 UNITS/3 ML VIAL SC PRN ×2 (05:12→12:45)
[2017-08-11] MEDS ORDERED: glyBURIDE 5 MG TAB PO SCH (08:00)
[2017-08-11] MEDS: glyBURIDE 5 MG TAB PO SCH ×2 (08:45→16:51)
[2017-08-11] MEDS: Saccharomyces boulardii 250 MG CAP PO SCH (08:45)
[2017-08-11] MEDS: metFORMIN 500 MG TAB PO SCH ×2 (08:45→16:52)
[2017-08-11] MEDS: Tamsulosin HCl 0.4 MG CAP PO SCH (08:45)
[2017-08-11] MEDS: Cyanocobalamin (Vitamin B-12) 1,000 MCG TAB PO SCH (08:46)
[2017-08-11] MEDS: Folic Acid 1 MG TAB PO SCH (08:46)
[2017-08-11] MEDS: Famotidine 20 MG TAB PO SCH ×2 (08:46→21:24)
[2017-08-11] MEDS: Lisinopril 5 MG TAB PO SCH ×2 (08:46→21:24)
--- NOTE | 2017-08-11 12:06 | PDOC.PN ---
- Subjective Encounter Start Date: 08/11/17 Encounter Start Time: 10:20 Patient seen and examined. No new complaints. No overnight events - Objective Resuscitation Status: Resuscitation Status FULL:Full Resuscitation MAR Reviewed: Yes Vital Signs & Weight: Vital Signs (12 hours) Temp Pulse Resp BP Pulse Ox 08/11/17 08:46 84 08/11/17 08:00 97 F L 84 18 159/79 H 96 Weight Admit Weight 270 lb 0.96 oz Weight 270 lb 1.06 oz I&O: 08/10/17 08/11/17 08/12/17 06:59 06:59 06:59 Intake Total 5370 2981 Output Total 3476 250 Balance 1894 2731 Result Diagrams: 08/09/17 03:49 08/09/17 03:49 Additional Labs: Accuchecks 08/11/17 08/10/17 08/10/17 05:09 20:23 16:30 POC Glucose 220 H 173 H 206 H 08/10/17 12:22 POC Glucose 219 H Phys Exam - Physical Examination Constitutional: NAD HEENT: PERRLA, moist MMs, sclera anicteric Neck: no JVD, supple Respiratory: no wheezing, no rales, no rhonchi Cardiovascular: RRR, no significant murmur, no rub Gastrointestinal: soft, non-tender, no distention, positive bowel sounds Musculoskeletal: no edema, pulses present wound vac in place at right groin Neurological: non-focal, normal sensation Psychiatric: normal affect, A&O x 3 Skin: no rash, normal turgor Dx/Plan (1) Abscess of groin, right Code(s): L02.214 - CUTANEOUS ABSCESS OF GROIN Status: Acute Comment: s/p I & D and now wound care (2) Cellulitis of scrotum Code(s): N49.2 - INFLAMMATORY DISORDERS OF SCROTUM Status: Acute (3) Hypertension Code(s): I10 - ESSENTIAL (PRIMARY) HYPERTENSION Status: Acute (4) New onset type 2 diabetes mellitus Code(s): E11.9 - TYPE 2 DIABETES MELLITUS WITHOUT COMPLICATIONS Status: Acute (5) Alcohol abuse Code(s): F10.10 - ALCOHOL ABUSE, UNCOMPLICATED Status: Chronic (6) Macrocytosis without anemia Code(s): D75.89 - OTHER SPECIFIED DISEASES OF BLOOD AND BLOOD-FORMING ORGANS Status: Chronic (7) Morbid obesity with BMI of 40.0-44.9, adult Code(s): E66.01 - MORBID (SEVERE) OBESITY DUE TO EXCESS CALORIES; Z68.41 - BODY MASS INDEX (BMI) 40.0-44.9, ADULT Status: Chronic - Plan cont current plan of care, plan discussed w/ family, continue antibiotics, director social * await outpt wound vac arrangement * discussed with son * medication reviewed as below * symptomatic treatment * follow culture * continue vancomycin and zosyn. Review of Systems - Review of Systems ENT: negative: Ear Pain, Ear Discharge, Nose Pain, Nose Discharge, Nose Congestion, Mouth Pain, Mouth Swelling, Throat Pain, Throat Swelling, Other Respiratory: negative: Cough, Dry, Shortness of Breath, Hemoptysis, SOB with Excertion, Pleuritic Pain, Sputum, Wheezing Cardiovascular: negative: Chest Pain, Palpitations, Orthopnea, Paroxysmal Noc. Dyspnea, Edema, Light Headedness, Other Gastrointestinal: negative: Nausea, Vomiting, Abdominal Pain, Diarrhea, Constipation, Melena, Hematochezia, Other Genitourinary: negative: Dysuria, Frequency, Incontinence, Hematuria, Retention , Other Musculoskeletal: negative: Neck Pain, Shoulder Pain, Arm Pain, Back Pain, Hand Pain, Leg Pain, Foot Pain, Other - Medications/Allergies Allergies/Adverse Reactions: Allergies Allergy/AdvReac Type Severity Reaction Status Date / Time No Known Drug Allergies Allergy Verified 08/08/17 22:45 Medications: Current Medications Acetaminophen (Tylenol) 650 mg PO Q4H PRN PRN Reason: Headache/Fever or Pain Hydrocodone Bitart/Acetaminophen ([place] 10/325) 1 tab PO Q4H PRN PRN Reason: Mild-Moderate Pain (1-5) Hydrocodone Bitart/Acetaminophen ([place] 10/325) 2 tab PO Q4H PRN PRN Reason: Moderate to Severe Pain (6-10) Hydrocodone Bitart/Acetaminophen ([place] 5/325) 1 tab PO Q4H PRN PRN Reason: Moderate Pain (4-6) Al Hydroxide/Mg Hydroxide (Maalox) 15 ml PO Q4H PRN PRN Reason: Heartburn or Indigestion Artificial Tears (Tears Naturale) 0 drop EA EYE PRN PRN PRN Reason: Dry Eyes Clonidine HCl (Catapres) 0.1 mg PO Q4H PRN PRN Reason: SBP GREATER THAN 160 Cyanocobalamin (Vitamin B-12) 1,000 mcg PO DAILY [facility] Last Admin: 08/11/17 08:46 Dose: 1,000 mcg Dextrose/Water (Dextrose 50%) 25 gm IVP PRN PRN PRN Reason: HYPOGLYCEMIA PROTOCOL Famotidine (Pepcid) 20 mg PO BID [facility] Last Admin: 08/11/17 08:46 Dose: 20 mg Folic Acid (Folvite) 1 mg PO DAILY [facility] Last Admin: 08/11/17 08:46 Dose: 1 mg Glucagon (Glucagon) 1 mg IM PRN PRN PRN Reason: HYPOGLYCEMIA PROTOCOL Glyburide (Diabeta) 5 mg PO BID-[facility] Last Admin: 08/11/17 08:45 Dose: 5 mg Guaifenesin (Robitussin Sf) 200 mg PO Q4H PRN PRN Reason: Cough Last Admin: 08/10/17 10:48 Dose: 200 mg Hydralazine HCl (Apresoline) 10 mg SLOW IVP Q4H PRN PRN Reason: SBP Greater Than 170 Vancomycin HCl 1.5 gm/ Sodium (Chloride) 300 mls @ 200 mls/hr IVPB Q12H [facility] Last Admin: 08/11/17 01:16 Dose: 300 mls Dextrose/Water (D5w) 1,000 mls @ 0 mls/hr IV INF PRN; As Directed PRN Reason: HYPOGLYCEMIA PROTOCOL Piperacillin Sod/Tazobactam Sod 3.375 gm/ Miscellaneous Medication 1 each/ Sodium Chloride 100 mls @ 200 mls/hr IVPB Q6HR [facility] Last Admin: 08/11/17 11:39 Dose: 100 mls Insulin Human Lispro (Humalog) 0 units SC .MODERATE SLIDING SC PRN; Protocol PRN Reason: MODERATE SLIDING SCALE Last Admin: 08/11/17 05:12 Dose: 4 unit Insulin Human Lispro (Humalog) 0 units SC .BEDTIME SLIDING SC PRN; Protocol PRN Reason: BEDTIME SLIDING SCALE Last Admin: 08/09/17 22:04 Dose: 3 unit Lisinopril (Zestril) 5 mg PO BID [facility] Last Admin: 08/11/17 08:46 Dose: 5 mg Loperamide HCl (Imodium) 2 mg PO PRN PRN PRN Reason: Diarrhea/Loose Stools Loratadine (Claritin) 10 mg PO DAILYPRN PRN PRN Reason: Sinus Symptoms Magnesium Hydroxide (Milk Of Magnesium) 30 ml PO DAILYPRN PRN PRN Reason: Constipation Metformin HCl (Glucophage) 1,000 mg PO BID-[facility] Last Admin: 08/11/17 08:45 Dose: 1,000 mg Mineral Oil/White Petrolatum (Eucerin Cream) 0 gm TOP BIDPRN PRN PRN Reason: Dry Skin Miscellaneous Medication (Pharmacy To Dose) 1 each IVPB PRN PRN PRN Reason: Pharmacy to dose Morphine Sulfate (Morphine Sulfate) 2 mg SLOW IVP Q4H PRN PRN Reason: Mild-Moderate Pain (1-5) Morphine Sulfate (Morphine Sulfate) 4 mg SLOW IVP Q4H PRN PRN Reason: Moderate to Severe Pain (6-10) Last Admin: 08/10/17 17:19 Dose: 4 mg Ondansetron HCl (Zofran) 4 mg IVP Q6H PRN PRN Reason: Nausea/Vomiting Ondansetron HCl (Zofran Odt) 4 mg PO Q6H PRN PRN Reason: Nausea/Vomiting Phenol (Chloraseptic [place] 180 Ml Bot) 0 ml PO PRN PRN PRN Reason: Sore Throat Saccharomyces Boulardii (Florastor) 250 mg PO DAILY [facility] Last Admin: 08/11/17 08:45 Dose: 250 mg Senna (Senokot) 2 tab PO HSPRN PRN PRN Reason: Constipation Sodium Chloride (Flush - Normal Saline) 10 ml IVF PRN PRN PRN Reason: Saline Flush Sodium Chloride ([place] Nasal [place] 0.65%) 0 ml EA NARE QIDPRN PRN PRN Reason: Nasal Congestion Tamsulosin HCl (Flomax) 0.4 mg PO DAILY [facility] Last Admin: 08/11/17 08:45 Dose: 0.4 mg Temazepam (Restoril) 15 mg PO HSPRN PRN PRN Reason: Insomnia Thiamine HCl (Thiamine) 100 mg PO DAILY [facility] Last Admin: 08/11/17 08:45 Dose: 100 mg Tramadol HCl (Ultram) 50 mg PO Q4H PRN PRN Reason: Moderate Pain (4-6)
[2017-08-11] MEDS: hydrALAZINE 20 MG/ML VIAL SLOW IVP PRN (12:39)
--- NOTE | 2017-08-11 14:40 | PRG ---
DATE OF SERVICE: 08/11/2017 SUBJECTIVE: Mr. Thompson is doing well today. He has no complaints. He continues his wound VAC c hanges. ASSESSMENT: Likely he needs to be here through the weekend with continued wound VAC, because he has no insurance access to home VAC. PLAN: Likely discharge home sometime next week, on oral antibiotics after culture is back.
[2017-08-12] MEDS: Piperacillin/Tazobactam 3.375 GM, Admixture Fee 1 EACH in Sodium Chloride 0.9% 100 ML IVPB SCH ×5 (00:07→23:44)
[2017-08-12 01:20] LABS: Vancomycin, Trough 13.5 ug/mL
[2017-08-12] MEDS: Vancomycin HCl 1.5 GM in Sodium Chloride 0.9% 250 ML 300 ML IVPB SCH (01:30)
[2017-08-12] MEDS: hydrALAZINE 20 MG/ML VIAL SLOW IVP PRN (06:12)
[2017-08-12] MEDS: HumaLOG 300 UNITS/3 ML VIAL SC PRN ×3 (06:45→16:51)
[2017-08-12] MEDS: glyBURIDE 5 MG TAB PO SCH ×2 (07:50→16:50)
[2017-08-12] MEDS: Saccharomyces boulardii 250 MG CAP PO SCH (08:53)
[2017-08-12] MEDS: Cyanocobalamin (Vitamin B-12) 1,000 MCG TAB PO SCH (08:53)
[2017-08-12] MEDS: metFORMIN 500 MG TAB PO SCH ×2 (08:53→17:18)
[2017-08-12] MEDS: Tamsulosin HCl 0.4 MG CAP PO SCH (08:53)
[2017-08-12] MEDS: Famotidine 20 MG TAB PO SCH ×2 (08:53→20:22)
[2017-08-12] MEDS: Lisinopril 5 MG TAB PO SCH ×2 (08:53→20:22)
[2017-08-12] MEDS: Folic Acid 1 MG TAB PO SCH (08:54)
[2017-08-12] MEDS: Amlodipine 5 MG TAB PO SCH (09:31)
--- NOTE | 2017-08-12 11:51 | PDOC.PN ---
- Subjective Encounter Start Date: 08/12/17 Encounter Start Time: 10:30 Patient seen and examined. No new complaints. No overnight events - Objective Resuscitation Status: Resuscitation Status FULL:Full Resuscitation MAR Reviewed: Yes Vital Signs & Weight: Vital Signs (12 hours) Temp Pulse Resp BP BP BP Pulse Ox 08/12/17 11:49 97.3 F L 82 20 166/81 H 96 08/12/17 09:31 81 171/92 H 08/12/17 08:53 81 171/92 H 08/12/17 08:00 97.4 F L 81 20 08/12/17 07:30 97.4 F L 81 20 171/92 H 97 08/12/17 06:48 92 155/84 H 08/12/17 06:12 188/100 H 08/12/17 04:00 188/100 H 08/12/17 00:00 170/94 H Weight Admit Weight 270 lb 0.96 oz Weight 270 lb 1.06 oz I&O: 08/11/17 08/12/17 08/13/17 06:59 06:59 06:59 Intake Total 2981 2285 480 Output Total 250 2200 Balance 2731 85 480 Result Diagrams: 08/09/17 03:49 08/09/17 03:49 Additional Labs: Accuchecks 08/12/17 08/11/17 08/11/17 05:41 20:16 16:35 POC Glucose 191 H 178 H 193 H 08/11/17 11:49 POC Glucose 246 H Phys Exam - Physical Examination Constitutional: NAD HEENT: PERRLA, moist MMs, sclera anicteric Neck: no JVD, supple Respiratory: no wheezing, no rales, no rhonchi Cardiovascular: RRR, no significant murmur, no rub Gastrointestinal: soft, non-tender, no distention, positive bowel sounds Musculoskeletal: no edema, pulses present wound vac in place Neurological: non-focal, normal sensation, moves all 4 limbs Psychiatric: normal affect, A&O x 3 Skin: no rash, normal turgor Dx/Plan (1) Abscess of groin, right Code(s): L02.214 - CUTANEOUS ABSCESS OF GROIN Status: Acute Comment: s/p I & D and now wound care (2) Cellulitis of scrotum Code(s): N49.2 - INFLAMMATORY DISORDERS OF SCROTUM Status: Acute (3) Hypertension Code(s): I10 - ESSENTIAL (PRIMARY) HYPERTENSION Status: Acute (4) New onset type 2 diabetes mellitus Code(s): E11.9 - TYPE 2 DIABETES MELLITUS WITHOUT COMPLICATIONS Status: Acute (5) Alcohol abuse Code(s): F10.10 - ALCOHOL ABUSE, UNCOMPLICATED Status: Chronic (6) Macrocytosis without anemia Code(s): D75.89 - OTHER SPECIFIED DISEASES OF BLOOD AND BLOOD-FORMING ORGANS Status: Chronic (7) Morbid obesity with BMI of 40.0-44.9, adult Code(s): E66.01 - MORBID (SEVERE) OBESITY DUE TO EXCESS CALORIES; Z68.41 - BODY MASS INDEX (BMI) 40.0-44.9, ADULT Status: Chronic - Plan cont current plan of care, continue antibiotics * will add coreg 12.5 mg po bid * will add amlodipine 5 mg po daily * continue wound care * continue IV antibiotics as per below. * medication reviewed as below * symptomatic treatment Review of Systems - Review of Systems ENT: negative: Ear Pain, Ear Discharge, Nose Pain, Nose Discharge, Nose Congestion, Mouth Pain, Mouth Swelling, Throat Pain, Throat Swelling, Other Respiratory: negative: Cough, Dry, Shortness of Breath, Hemoptysis, SOB with Excertion, Pleuritic Pain, Sputum, Wheezing Cardiovascular: negative: Chest Pain, Palpitations, Orthopnea, Paroxysmal Noc. Dyspnea, Edema, Light Headedness, Other Gastrointestinal: negative: Nausea, Vomiting, Abdominal Pain, Diarrhea, Constipation, Melena, Hematochezia, Other Genitourinary: negative: Dysuria, Frequency, Incontinence, Hematuria, Retention , Other Musculoskeletal: negative: Neck Pain, Shoulder Pain, Arm Pain, Back Pain, Hand Pain, Leg Pain, Foot Pain, Other - Medications/Allergies Allergies/Adverse Reactions: Allergies Allergy/AdvReac Type Severity Reaction Status Date / Time No Known Drug Allergies Allergy Verified 08/08/17 22:45 Medications: Current Medications Acetaminophen (Tylenol) 650 mg PO Q4H PRN PRN Reason: Headache/Fever or Pain Hydrocodone Bitart/Acetaminophen ([place] 10/325) 1 tab PO Q4H PRN PRN Reason: Mild-Moderate Pain (1-5) Hydrocodone Bitart/Acetaminophen ([place] 10/325) 2 tab PO Q4H PRN PRN Reason: Moderate to Severe Pain (6-10) Hydrocodone Bitart/Acetaminophen ([place] 5/325) 1 tab PO Q4H PRN PRN Reason: Moderate Pain (4-6) Al Hydroxide/Mg Hydroxide (Maalox) 15 ml PO Q4H PRN PRN Reason: Heartburn or Indigestion Amlodipine Besylate (Norvasc) 5 mg PO DAILY [facility] Last Admin: 08/12/17 09:31 Dose: 5 mg Artificial Tears (Tears Naturale) 0 drop EA EYE PRN PRN PRN Reason: Dry Eyes Carvedilol (Coreg) 12.5 mg PO BID-[facility] Clonidine HCl (Catapres) 0.1 mg PO Q4H PRN PRN Reason: SBP GREATER THAN 160 Last Admin: 08/11/17 21:28 Dose: 0.1 mg Cyanocobalamin (Vitamin B-12) 1,000 mcg PO DAILY [facility] Last Admin: 08/12/17 08:53 Dose: 1,000 mcg Dextrose/Water (Dextrose 50%) 25 gm IVP PRN PRN PRN Reason: HYPOGLYCEMIA PROTOCOL Famotidine (Pepcid) 20 mg PO BID [facility] Last Admin: 08/12/17 08:53 Dose: 20 mg Folic Acid (Folvite) 1 mg PO DAILY [facility] Last Admin: 08/12/17 08:54 Dose: 1 mg Glucagon (Glucagon) 1 mg IM PRN PRN PRN Reason: HYPOGLYCEMIA PROTOCOL Glyburide (Diabeta) 5 mg PO BID-[facility] Last Admin: 08/12/17 07:50 Dose: 5 mg Guaifenesin (Robitussin Sf) 200 mg PO Q4H PRN PRN Reason: Cough Last Admin: 08/10/17 10:48 Dose: 200 mg Hydralazine HCl (Apresoline) 10 mg SLOW IVP Q4H PRN PRN Reason: SBP Greater Than 170 Last Admin: 08/12/17 06:12 Dose: 10 mg Dextrose/Water (D5w) 1,000 mls @ 0 mls/hr IV INF PRN; As Directed PRN Reason: HYPOGLYCEMIA PROTOCOL Piperacillin Sod/Tazobactam Sod 3.375 gm/ Miscellaneous Medication 1 each/ Sodium Chloride 100 mls @ 200 mls/hr IVPB Q6HR [facility] Last Admin: 08/12/17 06:02 Dose: 100 mls Vancomycin HCl 1.75 gm/ Sodium (Chloride) 500 mls @ 250 mls/hr IVPB 0100,1300 [facility] Insulin Human Lispro (Humalog) 0 units SC .MODERATE SLIDING SC PRN; Protocol PRN Reason: MODERATE SLIDING SCALE Last Admin: 08/12/17 06:45 Dose: 2 unit Insulin Human Lispro (Humalog) 0 units SC .BEDTIME SLIDING SC PRN; Protocol PRN Reason: BEDTIME SLIDING SCALE Last Admin: 08/09/17 22:04 Dose: 3 unit Lisinopril (Zestril) 5 mg PO BID [facility] Last Admin: 08/12/17 08:53 Dose: 5 mg Loperamide HCl (Imodium) 2 mg PO PRN PRN PRN Reason: Diarrhea/Loose Stools Loratadine (Claritin) 10 mg PO DAILYPRN PRN PRN Reason: Sinus Symptoms Magnesium Hydroxide (Milk Of Magnesium) 30 ml PO DAILYPRN PRN PRN Reason: Constipation Metformin HCl (Glucophage) 1,000 mg PO BID-[facility] Last Admin: 08/12/17 08:53 Dose: 1,000 mg Mineral Oil/White Petrolatum (Eucerin Cream) 0 gm TOP BIDPRN PRN PRN Reason: Dry Skin Miscellaneous Medication (Pharmacy To Dose) 1 each IVPB PRN PRN PRN Reason: Pharmacy to dose Morphine Sulfate (Morphine Sulfate) 2 mg SLOW IVP Q4H PRN PRN Reason: Mild-Moderate Pain (1-5) Morphine Sulfate (Morphine Sulfate) 4 mg SLOW IVP Q4H PRN PRN Reason: Moderate to Severe Pain (6-10) Last Admin: 08/10/17 17:19 Dose: 4 mg Ondansetron HCl (Zofran) 4 mg IVP Q6H PRN PRN Reason: Nausea/Vomiting Ondansetron HCl (Zofran Odt) 4 mg PO Q6H PRN PRN Reason: Nausea/Vomiting Phenol (Chloraseptic [place] 180 Ml Bot) 0 ml PO PRN PRN PRN Reason: Sore Throat Saccharomyces Boulardii (Florastor) 250 mg PO DAILY [facility] Last Admin: 08/12/17 08:53 Dose: 250 mg Senna (Senokot) 2 tab PO HSPRN PRN PRN Reason: Constipation Sodium Chloride (Flush - Normal Saline) 10 ml IVF PRN PRN PRN Reason: Saline Flush Sodium Chloride ([place] Nasal [place] 0.65%) 0 ml EA NARE QIDPRN PRN PRN Reason: Nasal Congestion Tamsulosin HCl (Flomax) 0.4 mg PO DAILY [facility] Last Admin: 08/12/17 08:53 Dose: 0.4 mg Temazepam (Restoril) 15 mg PO HSPRN PRN PRN Reason: Insomnia Thiamine HCl (Thiamine) 100 mg PO DAILY [facility] Last Admin: 08/12/17 08:54 Dose: 100 mg Tramadol HCl (Ultram) 50 mg PO Q4H PRN PRN Reason: Moderate Pain (4-6)
[2017-08-12] MEDS: Vancomycin HCl 1.75 GM in Sodium Chloride 0.9% 500 ML IVPB SCH (13:24)
[2017-08-12] MEDS ORDERED: Carvedilol 6.25 MG TAB PO SCH (17:00)
[2017-08-13] MEDS: Vancomycin HCl 1.75 GM in Sodium Chloride 0.9% 500 ML IVPB SCH ×2 (01:11→12:59)
[2017-08-13] MEDS: Piperacillin/Tazobactam 3.375 GM, Admixture Fee 1 EACH in Sodium Chloride 0.9% 100 ML IVPB SCH ×4 (06:25→23:13)
[2017-08-13] MEDS: glyBURIDE 5 MG TAB PO SCH ×2 (07:38→16:31)
[2017-08-13] MEDS: Tamsulosin HCl 0.4 MG CAP PO SCH (08:30)
[2017-08-13] MEDS: Folic Acid 1 MG TAB PO SCH (08:30)
[2017-08-13] MEDS: Cyanocobalamin (Vitamin B-12) 1,000 MCG TAB PO SCH (08:31)
[2017-08-13] MEDS: Saccharomyces boulardii 250 MG CAP PO SCH (08:31)
[2017-08-13] MEDS: Amlodipine 5 MG TAB PO SCH (08:31)
[2017-08-13] MEDS: Famotidine 20 MG TAB PO SCH ×2 (08:31→20:13)
[2017-08-13] MEDS: Lisinopril 5 MG TAB PO SCH ×2 (08:31→20:12)
[2017-08-13] MEDS: metFORMIN 500 MG TAB PO SCH ×2 (08:32→17:17)
[2017-08-13] MEDS: Carvedilol 25 MG TAB PO SCH ×2 (08:37→17:18)
--- NOTE | 2017-08-13 11:45 | PDOC.PN ---
- Subjective Encounter Start Date: 08/13/17 Encounter Start Time: 07:15 Patient seen and examined. No new complaints. No overnight events - Objective Resuscitation Status: Resuscitation Status FULL:Full Resuscitation MAR Reviewed: Yes Vital Signs & Weight: Vital Signs (12 hours) Temp Pulse Resp BP BP BP Pulse Ox 08/13/17 08:31 70 170/97 H 08/13/17 08:13 97.7 F 70 20 170/97 H 96 08/13/17 07:49 98.2 F 76 16 08/13/17 04:00 175/91 H 08/13/17 00:00 155/85 H Weight Admit Weight 270 lb 0.96 oz Weight 270 lb 1.06 oz I&O: 08/12/17 08/13/17 08/14/17 06:59 06:59 06:59 Intake Total 2285 2410 240 Output Total 2200 1630 Balance 85 780 240 Result Diagrams: 08/09/17 03:49 08/09/17 03:49 Additional Labs: Accuchecks 08/13/17 08/13/17 08/12/17 11:19 05:27 20:45 POC Glucose 154 H 162 H 208 H 08/12/17 08/12/17 16:09 11:43 POC Glucose 155 H 168 H Phys Exam - Physical Examination Constitutional: NAD HEENT: PERRLA, moist MMs, sclera anicteric Neck: no JVD, supple Respiratory: no wheezing, no rales, no rhonchi Cardiovascular: RRR, no significant murmur, no rub Gastrointestinal: soft, non-tender, no distention, positive bowel sounds Musculoskeletal: no edema, pulses present wound vac in place Neurological: non-focal, normal sensation, moves all 4 limbs Lymphatic: no nodes Psychiatric: normal affect, A&O x 3 Skin: no rash, normal turgor Dx/Plan (1) Abscess of groin, right Code(s): L02.214 - CUTANEOUS ABSCESS OF GROIN Status: Acute Comment: s/p I & D and now wound care (2) Cellulitis of scrotum Code(s): N49.2 - INFLAMMATORY DISORDERS OF SCROTUM Status: Acute (3) Hypertension Code(s): I10 - ESSENTIAL (PRIMARY) HYPERTENSION Status: Acute (4) New onset type 2 diabetes mellitus Code(s): E11.9 - TYPE 2 DIABETES MELLITUS WITHOUT COMPLICATIONS Status: Acute (5) Alcohol abuse Code(s): F10.10 - ALCOHOL ABUSE, UNCOMPLICATED Status: Chronic (6) Macrocytosis without anemia Code(s): D75.89 - OTHER SPECIFIED DISEASES OF BLOOD AND BLOOD-FORMING ORGANS Status: Chronic (7) Morbid obesity with BMI of 40.0-44.9, adult Code(s): E66.01 - MORBID (SEVERE) OBESITY DUE TO EXCESS CALORIES; Z68.41 - BODY MASS INDEX (BMI) 40.0-44.9, ADULT Status: Chronic - Plan cont current plan of care, continue antibiotics, drug abuse social worker * continue wound care with wound vac * social work for wound care and wound vac arrangement after discharge * dr roblero will see him tomorrow, if he is ok, can be discharged on oral antibiotics * medication reviewed as below * symptomatic treatment * will increase coreg 25 mg po bid. Review of Systems - Review of Systems ENT: negative: Ear Pain, Ear Discharge, Nose Pain, Nose Discharge, Nose Congestion, Mouth Pain, Mouth Swelling, Throat Pain, Throat Swelling, Other Respiratory: negative: Cough, Dry, Shortness of Breath, Hemoptysis, SOB with Excertion, Pleuritic Pain, Sputum, Wheezing Cardiovascular: negative: Chest Pain, Palpitations, Orthopnea, Paroxysmal Noc. Dyspnea, Edema, Light Headedness, Other Gastrointestinal: negative: Nausea, Vomiting, Abdominal Pain, Diarrhea, Constipation, Melena, Hematochezia, Other Genitourinary: negative: Dysuria, Frequency, Incontinence, Hematuria, Retention , Other Musculoskeletal: negative: Neck Pain, Shoulder Pain, Arm Pain, Back Pain, Hand Pain, Leg Pain, Foot Pain, Other - Medications/Allergies Allergies/Adverse Reactions: Allergies Allergy/AdvReac Type Severity Reaction Status Date / Time No Known Drug Allergies Allergy Verified 08/08/17 22:45 Medications: Current Medications Acetaminophen (Tylenol) 650 mg PO Q4H PRN PRN Reason: Headache/Fever or Pain Hydrocodone Bitart/Acetaminophen ([place] 10/325) 1 tab PO Q4H PRN PRN Reason: Mild-Moderate Pain (1-5) Hydrocodone Bitart/Acetaminophen ([place] 10/325) 2 tab PO Q4H PRN PRN Reason: Moderate to Severe Pain (6-10) Hydrocodone Bitart/Acetaminophen ([place] 5/325) 1 tab PO Q4H PRN PRN Reason: Moderate Pain (4-6) Al Hydroxide/Mg Hydroxide (Maalox) 15 ml PO Q4H PRN PRN Reason: Heartburn or Indigestion Amlodipine Besylate (Norvasc) 5 mg PO DAILY [facility] Last Admin: 08/13/17 08:31 Dose: 5 mg Artificial Tears (Tears Naturale) 0 drop EA EYE PRN PRN PRN Reason: Dry Eyes Carvedilol (Coreg) 25 mg PO BID-[facility] Last Admin: 08/13/17 08:37 Dose: 25 mg Clonidine HCl (Catapres) 0.1 mg PO Q4H PRN PRN Reason: SBP GREATER THAN 160 Last Admin: 08/11/17 21:28 Dose: 0.1 mg Cyanocobalamin (Vitamin B-12) 1,000 mcg PO DAILY [facility] Last Admin: 08/13/17 08:31 Dose: 1,000 mcg Dextrose/Water (Dextrose 50%) 25 gm IVP PRN PRN PRN Reason: HYPOGLYCEMIA PROTOCOL Famotidine (Pepcid) 20 mg PO BID [facility] Last Admin: 08/13/17 08:31 Dose: 20 mg Folic Acid (Folvite) 1 mg PO DAILY [facility] Last Admin: 08/13/17 08:30 Dose: 1 mg Glucagon (Glucagon) 1 mg IM PRN PRN PRN Reason: HYPOGLYCEMIA PROTOCOL Glyburide (Diabeta) 5 mg PO BID-[facility] Last Admin: 08/13/17 07:38 Dose: 5 mg Guaifenesin (Robitussin Sf) 200 mg PO Q4H PRN PRN Reason: Cough Last Admin: 08/10/17 10:48 Dose: 200 mg Hydralazine HCl (Apresoline) 10 mg SLOW IVP Q4H PRN PRN Reason: SBP Greater Than 170 Last Admin: 08/12/17 06:12 Dose: 10 mg Dextrose/Water (D5w) 1,000 mls @ 0 mls/hr IV INF PRN; As Directed PRN Reason: HYPOGLYCEMIA PROTOCOL Piperacillin Sod/Tazobactam Sod 3.375 gm/ Miscellaneous Medication 1 each/ Sodium Chloride 100 mls @ 200 mls/hr IVPB Q6HR [facility] Last Admin: 08/13/17 06:25 Dose: 100 mls Vancomycin HCl 1.75 gm/ Sodium (Chloride) 500 mls @ 250 mls/hr IVPB 0100,1300 [facility] Last Admin: 08/13/17 01:11 Dose: 500 mls Insulin Human Lispro (Humalog) 0 units SC .MODERATE SLIDING SC PRN; Protocol PRN Reason: MODERATE SLIDING SCALE Last Admin: 08/12/17 16:51 Dose: 2 unit Insulin Human Lispro (Humalog) 0 units SC .BEDTIME SLIDING SC PRN; Protocol PRN Reason: BEDTIME SLIDING SCALE Last Admin: 08/09/17 22:04 Dose: 3 unit Lisinopril (Zestril) 5 mg PO BID [facility] Last Admin: 08/13/17 08:31 Dose: 5 mg Loperamide HCl (Imodium) 2 mg PO PRN PRN PRN Reason: Diarrhea/Loose Stools Loratadine (Claritin) 10 mg PO DAILYPRN PRN PRN Reason: Sinus Symptoms Magnesium Hydroxide (Milk Of Magnesium) 30 ml PO DAILYPRN PRN PRN Reason: Constipation Metformin HCl (Glucophage) 1,000 mg PO BID-[facility] Last Admin: 08/13/17 08:32 Dose: 1,000 mg Mineral Oil/White Petrolatum (Eucerin Cream) 0 gm TOP BIDPRN PRN PRN Reason: Dry Skin Miscellaneous Medication (Pharmacy To Dose) 1 each IVPB PRN PRN PRN Reason: Pharmacy to dose Morphine Sulfate (Morphine Sulfate) 2 mg SLOW IVP Q4H PRN PRN Reason: Mild-Moderate Pain (1-5) Morphine Sulfate (Morphine Sulfate) 4 mg SLOW IVP Q4H PRN PRN Reason: Moderate to Severe Pain (6-10) Last Admin: 08/10/17 17:19 Dose: 4 mg Ondansetron HCl (Zofran) 4 mg IVP Q6H PRN PRN Reason: Nausea/Vomiting Ondansetron HCl (Zofran Odt) 4 mg PO Q6H PRN PRN Reason: Nausea/Vomiting Phenol (Chloraseptic [place] 180 Ml Bot) 0 ml PO PRN PRN PRN Reason: Sore Throat Saccharomyces Boulardii (Florastor) 250 mg PO DAILY [facility] Last Admin: 08/13/17 08:31 Dose: 250 mg Senna (Senokot) 2 tab PO HSPRN PRN PRN Reason: Constipation Sodium Chloride (Flush - Normal Saline) 10 ml IVF PRN PRN PRN Reason: Saline Flush Sodium Chloride ([place] Nasal [place] 0.65%) 0 ml EA NARE QIDPRN PRN PRN Reason: Nasal Congestion Tamsulosin HCl (Flomax) 0.4 mg PO DAILY [facility] Last Admin: 08/13/17 08:30 Dose: 0.4 mg Temazepam (Restoril) 15 mg PO HSPRN PRN PRN Reason: Insomnia Thiamine HCl (Thiamine) 100 mg PO DAILY [facility] Last Admin: 08/13/17 08:31 Dose: 100 mg Tramadol HCl (Ultram) 50 mg PO Q4H PRN PRN Reason: Moderate Pain (4-6)
[2017-08-13] MEDS: HumaLOG 300 UNITS/3 ML VIAL SC PRN (11:52)
[2017-08-14 00:18] LABS: Vancomycin, Trough 18.6 ug/mL
[2017-08-14] MEDS: Vancomycin HCl 1.75 GM in Sodium Chloride 0.9% 500 ML IVPB SCH (00:32)
[2017-08-14] MEDS: Piperacillin/Tazobactam 3.375 GM, Admixture Fee 1 EACH in Sodium Chloride 0.9% 100 ML IVPB SCH ×2 (05:07→11:10)
[2017-08-14] MEDS: Tamsulosin HCl 0.4 MG CAP PO SCH (08:09)
[2017-08-14] MEDS: Amlodipine 5 MG TAB PO SCH (08:09)
[2017-08-14] MEDS: glyBURIDE 5 MG TAB PO SCH (08:10)
[2017-08-14] MEDS: metFORMIN 500 MG TAB PO SCH (08:11)
[2017-08-14] MEDS: Folic Acid 1 MG TAB PO SCH (08:12)
[2017-08-14] MEDS: Famotidine 20 MG TAB PO SCH (08:12)
[2017-08-14] MEDS: Lisinopril 5 MG TAB PO SCH (08:12)
[2017-08-14] MEDS: Carvedilol 25 MG TAB PO SCH (08:15)
[2017-08-14] MEDS: Saccharomyces boulardii 250 MG CAP PO SCH (08:16)
[2017-08-14] MEDS: Cyanocobalamin (Vitamin B-12) 1,000 MCG TAB PO SCH (08:16)
--- NOTE | 2017-08-14 11:02 | PRG ---
DATE OF SERVICE: 08/14/2017 Mr. Thompson has no complaints, still working on home wound VAC. PHYSICAL EXAMINATION: VITAL SIGNS: He is afebrile. Vital signs are stable. His wound VAC is intact. ASSESSMENT: Right groin abscess. PLAN: Home with home VAC when approved. I will see him back in 2 weeks in the office. He is clear for discharge today if the home VAC is set up.
[2017-08-14] MEDS ORDERED: cefTRIAXone\\ROCEPHIN 1 GM, Admixture Fee 1 EACH in Sodium Chloride 0.9% 100 ML IVPB SCH (12:00)
[2017-08-14] MEDS: Morphine 2 MG/ML SYRINGE SLOW IVP PRN (12:00)
[2017-08-14 13:27] VITALS: BP 136/81; TEMP 97.6
[2017-08-14] MEDS ORDERED: metroNIDAZOLE 500 MG TAB PO SCH (15:00)
--- NOTE | 2017-08-15 03:30 | DIS ---
DATE OF ADMISSION: 08/08/2017 DATE OF DISCHARGE: 08/14/2017 CONDITION AT THE TIME OF DISCHARGE: Stable and improved. DISCHARGE FOLLOWUP: Followup with: 1. General Surgery, Dr. Wally Chatterjee in 3-4 days. 2. [facility]. The patient is with established care with [facility] in [place]. DISCHARGE DISPOSITION: Home. DISCHARGE MEDICATIONS: 1. Lisinopril/hydrochlorothiazide 20/12.5 mg daily. 2. Keflex 250 mg 4 times a day for 7 days. 3. Flagyl 500 mg p.o. t.i.d. for 7 days. 4. Glucophage 1000 mg p.o. b.i.d. 5. Coreg 25 mg p.o. b.i.d. DISCHARGE DIAGNOSES: 1. New onset of diabetes mellitus. 2. Hypertension. 3. Scrotal cellulitis and abscess, status post incision and drainage. 4. Alcohol abuse. 5. Macrocytic anemia due to alcohol abuse. 6. Morbid obesity. CONSULTATIONS INHOUSE: Include: 1. Urology, Dr. Karimi. 2. General Surgery, Dr. Chatterjee. 3. Infectious Disease, Dr. Welch. PROCEDURES DONE IN THE HOSPITAL: Include: 1. Testicular ultrasound, which showed finding suggestive of scrotal cellulitis. 2. Incision and debridement and wound VAC placement of the right groin abscess by Dr. Chatterjee on . 3. Right groin debridement by Dr. Suki Karimi. ADMISSION HISTORY: Mr. Thompson is a 56-year-old male without any significant past medical history and any medical care, who presented to the emergency room with complaints of scrotal and penile swe lling. This was associated with scrotal drainage and severe pain and swelling. Upon presentation, he was hemodynamically stable, but his blood pressure was 191/94. His blood sugar was found to be e levated at greater than 1000. CT scan done in the outside emergency room showed possible gas collec tion. The patient was seen by urologist in the emergency room and was taken directly to operating r oom for I\T\D and was admitted to Internal Medicine Service for further evaluation. Infectious Dise ase was also consulted upon presentation. Please see admission history and physical for further det ails. HOSPITAL COURSE: The patient underwent I\T\D of the scrotal abscess and right groin abscess and con jugation by Urology and General Surgery. A wound VAC was applied and he was continued on broad spec trum IV antibiotics. Dr. Welch from Infectious Disease saw the patient and recommended discharge on metronidazole along with cephalexin given the patient's limited financial resources. Eventually, germania mccrary was cleared by General Surgery for discharge and wound VAC was arranged for him in a portable form . He will come back to follow up with local wound care at the hospital and will follow with Dr. Walker mayorga as well. His cultures grew multiple anaerobes and group B Streptococcus agalactiae as well. U rine culture was negative. He was seen and examined prior to discharge and is eager to go home and feels very well. He has bee n started on metformin and multiple antihypertensives for new diagnosis of diabetes and hypertension . Prescription for all the medications were provided, and I made sure that these are all 4-dollar p rescription medications. Prescription for glucometer, test strips and lancets were also provided. Patient is instructed to check his blood sugar at least 2 or 3 times a day. He need to follow up an d establish care with a primary care physician in [facility]. He was provided information for free clinics there. PHYSICAL EXAMINATION: VITAL SIGNS: Today show temperature 97.6, pulse of 67, respirations 18, saturating 95% on room air, blood pressure 136/81. GENERAL: No acute distress, awake, alert, oriented x3, is walking around in the hallways with his w ound VAC on his shoulder. CHEST: Clear to auscultation without any wheezing, rales or rhonchi. Rhythm is regular without any murmur, rubs or gallops. ABDOMEN: Soft, nontender, nondistended. LABORATORY DATA: CBC shows WBCs at 7.1, platelet count of 282, hemoglobin 14.4. Blood sugar 116. His hemoglobin A1c is 12.5. Lipid panel within normal limits. TSH normal, and hepatitis C antibody and HIV antigen and antibody are negative. At this time, the patient is stable for discharge. Case Management has arranged the wound VAC for t he patient. Total time spent 33 minutes.
== END 2017-08-14 15:21 | disposition home or self-care (01) | DRG 603 ==
LOC: ERS 19:01 → T4-A 22:39 → T4-B 08-09
PROVIDERS: ADMIT Internal Medicine; ATTEND Internal Medicine
PROC: 0JDC3ZZ Extraction of Pelvic Region Subcutaneous Tissue and Fascia, Percutaneous Approach (ICD-10-PCS; principal; 2017-08-08)
DX: L02.214 Cutaneous abscess of groin (principal); I10 Essential (primary) hypertension; Z68.41 Body mass index [BMI] 40.0-44.9, adult; E87.1 Hypo-osmolality and hyponatremia; E11.9 Type 2 diabetes mellitus without complications; B95.1 Streptococcus, group B, as the cause of diseases classified elsewhere; N49.2 Inflammatory disorders of scrotum; D63.8 Anemia in other chronic diseases classified elsewhere; F10.10 Alcohol abuse, uncomplicated; F17.210 Nicotine dependence, cigarettes, uncomplicated; E66.01 Morbid (severe) obesity due to excess calories
CPT/HCPCS: 36415; 36416; 71010; 76870; 80048; 80061; 80202; 83036; 84443; 85025; 86803; 87070; 87077; 87086; 87205; 87389; 90471; 90682; 90732; 93005; 93976; 94640; 96360; A4216; G0008; G0009; J0360; J0696; J1100; J1885; J2001; J2250; J2270; J2405; J2543; J2704; J3010; J3370; J7050; J7620; Q2036; S0020

== ENCOUNTER 2017-08-17 14:48 | Outpatient (CLI) | payer SELFPAY ==
[2017-08-17] MEDS ORDERED: Sodium Chloride 0.9% 15 ML NEB ONE (17:33)
== END 2017-08-17 14:49 | disposition home or self-care (01) ==
LOC: WCC 14:48
PROVIDERS: ATTEND Family Medicine
DX: T81.89XD Other complications of procedures, not elsewhere classified, subsequent encounter (principal)
CPT/HCPCS: 36416; 97605; A4218

== ENCOUNTER 2017-08-21 09:04 | Outpatient (CLI) | payer SELFPAY ==
[2017-08-21] MEDS ORDERED: Lidocaine 4% Topical Sol 50 ML BOT ONE (17:19)
[2017-08-21] MEDS ORDERED: Sodium Chloride 0.9% 15 ML NEB ONE (17:19)
== END 2017-08-21 09:05 | disposition home or self-care (01) ==
LOC: WCC 09:04
PROVIDERS: ATTEND Family Medicine
DX: T81.89XD Other complications of procedures, not elsewhere classified, subsequent encounter (principal)
CPT/HCPCS: 36416; 97606; A4218; J2001

== ENCOUNTER 2017-08-24 08:46 | Outpatient (CLI) | payer SELFPAY ==
--- NOTE | 2017-08-24 11:10 | HP ---
DATE OF SERVICE: 08/24/2017 HISTORY OF PRESENT ILLNESS: Mr. German Thompson is a very pleasant 56-year-old gentleman who prese nts to the Wound Center for evaluation of a wound of the right groin. The patient underwent debride ment, incision and drainage and wound VAC placement for treatment of a right groin abscess on 2016. The patient underwent surgery by Urology as well as General Surgery. Upon discharge from [facility], the patient was referred to the Wound Center for assistance with osvaldo ssing changes of the wound VAC. Negative pressure therapy was discontinued [address] Sandra valadez and as per Dr. Chatterjee, the patient has been receiving wet-to-dry dressing changes for his right g roin wound. The patient was discharged to home on Keflex and Flagyl, which he states he is taking a s prescribed. Cultures of the right groin revealed the growth of Streptococcus agalactiae group B i n addition to multiple anaerobes. PAST MEDICAL HISTORY: 1. Diabetes mellitus, new onset. 2. Hypertension. 3. Anemia. PAST SURGICAL HISTORY: Debridement, incision and drainage and wound VAC placement for treatment of a right groin abscess on 08/08/2017. MEDICATIONS: 1. Antihypertensive. 2. Metformin. 3. Flagyl. 4. Keflex. ALLERGIES: No known diagnosed allergies. SOCIAL HISTORY: Significant for tobacco use of 1/2 of a pack of cigarettes per day for 40 years. T he patient also admits to the consumption of up to 8-9 drinks per day for the past 27 years. FAMILY HISTORY: Significant for diabetes mellitus. The patient's mother and brother were both diag nosed with diabetes mellitus. PHYSICAL EXAMINATION: VITAL SIGNS: Temperature 98.1, pulse 89, respirations 18, blood pressure 149/77. Accu-Chek 156. GENERAL: A 56-year-old gentleman lying on table in examination room in no acute distress. HEENT: Normocephalic, atraumatic. NECK: No nuchal rigidity. CHEST: Clear to auscultation. CARDIAC: Regular rate and rhythm. ABDOMEN: Soft. EXTREMITIES: A wound of the right groin is present which measures approximately 9.2 x 4.8 cm. Gran ulation tissue is present within the wound margins. No purulent drainage is associated with the wou nd. No erythema of the skin surrounding the wound is appreciated. No maceration of the skin of the periwound is noted. NEUROLOGIC: Grossly nonfocal. ASSESSMENT AND PLAN: Right groin wound as described above. Wet to dry dressing changes as per Dr. Chatterjee will be continued on a daily basis after cleansing and irrigation. The patient has a follow up appointment with Dr. Chatterjee in 1 week. I will see Mr. Thompson again in two weeks. The laquita valadez has been reminded to continue Keflex and Flagyl as prescribed at the time of discharge, the laquita valadez understands and is in agreement with the preceding treatment plan. 1. Diabetes mellitus, new onset. The patient's Accu-Chek in clinic today is 156. The patient has been told that for optimal wound healing, his blood glucoses should remain below 150. 2. Hypertension. 3. Anemia.
[2017-08-24] MEDS ORDERED: Lidocaine 2% Jelly 5 ML TUBE ONE (17:53)
[2017-08-24] MEDS ORDERED: Sodium Chloride 0.9% 15 ML NEB ONE (17:53)
== END 2017-08-24 08:47 | disposition home or self-care (01) ==
LOC: WCC 08:46
PROVIDERS: ATTEND Family Medicine
DX: S31.103D Unspecified open wound of abdominal wall, right lower quadrant without penetration into peritoneal cavity, subsequent encounter (principal); I10 Essential (primary) hypertension; E11.9 Type 2 diabetes mellitus without complications; D64.9 Anemia, unspecified
CPT/HCPCS: 36416; 97602; 99203; A4218; G0463

== ENCOUNTER 2017-08-25 16:46 | Emergency (ER) | payer SELFPAY ==
[2017-08-25 17:14] LABS: #Eosinphils 0.2 thou/uL (0.0-0.7); #Lymphocytes 2.2 thou/uL (1.20-3.40); #Monocytes 0.7 thou/uL (0.11-0.59); #Neutrophils 3.8 thou/uL (1.40-6.50); %Basophils 0.7 % (0.0-1.0); %Eosinophils 2.6 % (0.0-10.0); %Lymphocytes 31.7 % (21.0-51.0); %Monocytes 9.9 % (0.0-10.0); Hematocrit 46.6 % (42.0-52.0); Mean Platelet Volume 6.1 fL (7.4-10.4); Red Blood Cell (RBC) Count 4.58 mill/uL (4.70-6.10); White Blood Cell (WBC) Count 6.8 thou/uL (4.8-10.8)
[2017-08-25 17:50] LABS: ALT (SGPT) 24 U/L (8-55); AST (SGOT) 22 U/L (5-34); Alkaline Phosphatase 74 U/L (40-150); Anion Gap 16 mmol/L (10-20); BUN (Urea Nitrogen) 8 mg/dL (8.4-25.7); Bilirubin, Total 0.4 mg/dL (0.2-1.2); CK (CPK) 22 U/L (30-200); Calc. Creatinine Clearance 0 mL/min (70-130); Calcium 8.7 mg/dL (7.8-10.44); Carbon Dioxide 23 mmol/L (22-29); Chloride 94 mmol/L (98-107); Estimated GFR-MDRD 81; Globulin 3.2 g/dL (2.4-3.5); Protein, Total 6.8 g/dL (6.0-8.3)
[2017-08-25 17:53] LABS: Troponin I Less than 0.010 ng/mL (< 0.028)
[2017-08-25 18:11] LABS: Lactic Acid - Sepsis 2.2 mmol/L (0.5-2.2)
--- NOTE | 2017-08-25 18:58 | RAD ---
PORTABLE UPRIGHT FRONTAL CHEST RADIOGRAPH 08/25/17 COMPARISON: 08/08/17 HISTORY: Right upper quadrant pain, chest pain and weakness. FINDINGS: Azygos lobe and fissure noted. Stable prominence of the cardiac silhouette. Stable increased linear interstitial density in the perihilar regions and both lung bases. No pneumothorax, lobar consolidat ion, or alveolar edema. IMPRESSION: Stable appearance of the chest demonstrating prominence of the cardiac silhouette with no alveolar e yaya or lobar consolidation. If symptoms persists, followup PA and lateral chest imaging is recommen ded. POS: ALEXANDR
--- NOTE | 2017-10-20 15:04 | EKG ---
Test Reason : CP Blood Pressure : / mmHG Vent. Rate : 081 BPM Atrial Rate : 081 BPM P-R Int : 178 ms QRS Dur : 146 ms QT Int : 434 ms P-R-T Axes : 023 -22 047 degrees QTc Int : 504 ms Sinus rhythm with Premature atrial complexes Right bundle branch block Cannot rule out Inferior infarct , age undetermined Abnormal ECG When compared with ECG of 08-AUG-2017 No significant change was found Confirmed by FABIANO STORY, CAMILO Jimenez ([id number]), associate entertainment editor BETH TESFAYE ([id number]) on 10/20/2017 3:04:11 PM Referred By: Confirmed By:CAMILO MARIO MD
== END 2017-08-25 20:10 | disposition home or self-care (01) ==
LOC: ERS 16:46
DX: F10.129 Alcohol abuse with intoxication, unspecified (principal); S31.103A Unspecified open wound of abdominal wall, right lower quadrant without penetration into peritoneal cavity, initial encounter; E78.5 Hyperlipidemia, unspecified; I10 Essential (primary) hypertension; E11.9 Type 2 diabetes mellitus without complications; F17.210 Nicotine dependence, cigarettes, uncomplicated; Y90.0 Blood alcohol level of less than 20 mg/100 ml; X58.XXXA Exposure to other specified factors, initial encounter
CPT/HCPCS: 36415; 71010; 80053; 80307; 82553; 83605; 84484; 85025; 87040; 93005; 96360; 96361; 99406

== ENCOUNTER 2017-09-09 10:38 | Inpatient (IN) | payer SELFPAY ==
[2017-09-09 10:58] LABS: #Eosinphils 0.1 thou/uL (0.0-0.7); #Lymphocytes 1.4 thou/uL (1.20-3.40); #Monocytes 0.8 thou/uL (0.11-0.59); #Neutrophils 4.7 thou/uL (1.40-6.50); %Basophils 0.7 % (0.0-1.0); %Eosinophils 1.2 % (0.0-10.0); %Lymphocytes 19.3 % (21.0-51.0); %Monocytes 10.9 % (0.0-10.0); Hematocrit 49.7 % (42.0-52.0); Mean Platelet Volume 6.4 fL (7.4-10.4)
[2017-09-09 11:02] LABS: PTT 30.1 SEC (22.9-36.1)
[2017-09-09 11:08] LABS: Acetaminophen Less than 6.0 mcg/mL (10.0-30.0); Salicylate Less than 8.0 mg/dL (15.0-30.0)
[2017-09-09 11:10] LABS: ALT (SGPT) 21 U/L (8-55); AST (SGOT) 23 U/L (5-34); Alkaline Phosphatase 109 U/L (40-150); Anion Gap 14 mmol/L (10-20); BUN (Urea Nitrogen) 14 mg/dL (8.4-25.7); Bilirubin, Total 0.6 mg/dL (0.2-1.2); CK (CPK) 25 U/L (30-200); Calc. Creatinine Clearance 0 mL/min (70-130); Calcium 9.3 mg/dL (7.8-10.44); Carbon Dioxide 25 mmol/L (22-29); Chloride 101 mmol/L (98-107); Estimated GFR-MDRD 90; Globulin 3.1 g/dL (2.4-3.5); Lipase 51 U/L (8-78); Protein, Total 7.2 g/dL (6.0-8.3)
[2017-09-09 11:13] LABS: Troponin I Less than 0.010 ng/mL (< 0.028)
[2017-09-09] MEDS ORDERED: Aspirin 325 MG TAB ONE (11:38)
[2017-09-09 11:59] LABS: Bilirubin Negative (Negative); Blood, Urine Negative (Negative); Glucose, Urine (Dipstick) 250 mg/dL (Negative); Ketone, Urine Negative (Negative); Nitrite Negative (Negative); Protein, Urine (Dipstick) Negative (Neg-Trace)
--- NOTE | 2017-09-09 12:05 | CT ---
CT BRAIN: Date: 09/09/17 PROVIDED CLINICAL HISTORY: Right-sided weakness and slurred speech. FINDINGS: The ventricular system appears normal in size and morphology. There is no evidence for intracranial h emorrhage or mass effect. Hypodensity involving the right parietal white matter may reflect chronic m icrovascular ischemic change. The extracranial soft tissues and osseous structures demonstrate an unr emarkable CT appearance. IMPRESSION: No evidence for intracranial hemorrhage or mass effect. Findings communicated to Dr. Pickering at 1051 hours on 09/09/17. CODE CR. POS: [facility]
[2017-09-09 12:09] LABS: Amphetamine Not Detected (NotDetected); Methadone Not Detected (NotDetected); Methamphetamine Not Detected (NotDetected)
--- NOTE | 2017-09-09 12:11 | RAD ---
PORTABLE CHEST: Date: 09/09/17 PROVIDED CLINICAL HISTORY: Stroke. FINDINGS: Comparison made with the study dated 08/08/17. Cardiac and mediastinal silhouette is unchanged in appearance. No focal consolidation, pleural fluid, or pneumothorax apparent. IMPRESSION: No evidence for an acute cardiopulmonary process. POS: [facility]
--- NOTE | 2017-09-09 12:29 | CT ---
CT ANGIO OF HEAD AND NECK PERFORMED WITH INTRAVENOUS CONTRAST ENHANCEMENT WITH 3D RECONSTRUCTIONS AND CT PERFUSION STUDY: Date: 09/09/17 COMPARISON: Noncontrast CT done earlier today. FINDINGS: The lung apices show no evidence of any infiltrative process. The thyroid gland is normal in size. No significant jugular chain adenopathy. Parapharyngeal spaces are clear. Parotid and submandibular gla nd regions appear unremarkable. Vocal cord region also is unremarkable. The angiographic portion of the study is of good quality. There is a separate origin of the left comm on carotid artery from the aortic arch. The left vertebral artery is dominant with a smaller right ve rtebral artery. On the left side, there is some moderate plaque formation at the origin of the left internal carotid artery with less than 50% narrowing. External carotid artery is normal. On the right side, there is complete occlusion of the right internal carotid artery. The external car otid artery is patent. CT ANGIO HEAD: CT angio of head was performed with contrast enhancement. The basilar artery receives its major contr ibution from the left vertebral artery. Posterior cerebral arteries appear unremarkable. There is a patent [place] of [place]. There is normal appearing anterior and middle cerebral arteries a nd their branches. Despite the right internal carotid occlusion, I do not see any significant asymmet ry within the vessels. I do not see any signs of thrombus. CT PERFUSION STUDY: This is of limited value in this case given the occlusion of the right internal carotid artery. On me an transit time, there is generally diminished transit time within the right cerebral hemisphere, whi ch would be expected on the basis of the occlusion of the right internal carotid artery. I do not see any definite signs of infarct. Given the lack of symmetry, assessment of the perfusion is much more limited and clinical decision making should not be based on this type of perfusion study. There is a history of right-sided weakness. I do not see any signs that would suggest definite infarct or ischem ic change in the left middle cerebral artery distribution. Findings reviewed with Dr. Fernandez. IMPRESSION: 1. Occluded right internal carotid artery. 2. Dominant left vertebral artery. 3. No significant stenosis of the left internal carotid artery. 4. Limited value of the perfusion study as discussed above. Findings were discussed with Dr. Pickering. CODE CR. POS: [facility]
--- NOTE | 2017-09-09 14:02 | CON ---
DATE OF CONSULTATION: 09/09/2017 HISTORY OF PRESENT ILLNESS: Mr. Thompson is a 56-year-old male. He was brought to the ER earlier today by EMS because of inability to talk, which he claims started around 7:00 a.m. this mor john and also at the same time, he noticed some generalized weakness. He was felt to have possible C [facility] and Neurology was consulted. He is also known to have any history of hypertension, diabetes melli tus. He denies previous history of CVA. Denies heart disease. Denies lung disease. Denies liver d isease. PAST SURGICAL HISTORY: No major surgery except for I&D of scrotal abscess. ALLERGIES: He does not have any known allergy. SOCIAL HISTORY: He is an active smoker. We could not quantify his smoking habit and he does also trivedi ve an history of ETOH abuse. FAMILY HISTORY: Reviewed and is remarkable for hypertension and also diabetes mellitus. MEDICATIONS: Prior to admission he was on lisinopril/hydrochlorothiazide, carvedilol, metformin, cep halexin and metronidazole. REVIEW OF SYSTEMS: Constitutional: He denies any fever. Admits to generalized weakness. HEENT: He denies any headach e, no ocular pain, no sore throat, no rhinorrhea, no earache, no epistaxis. Neck: No neck pain, no neck stiffness. Respiratory: He does have some shortness of breath, mainly exertional. Cardiovascu lar: Denies any chest pain. Pulmonary: He denied any coughing. Gastrointestinal: He claimed that he has some diarrhea for the last 2 days also. Genitourinary: He denies dysuria, denies hematuria. Endocrinology: No heat or cold intolerance. No polyuria, polydipsia or polyphagia. Musculoskelet al: Denies arthralgia. Denies myalgia. Skin: No rash, no itching. Allergies: No hay fever. Hem atology: No abnormal bleeding, no ecchymosis. Lymphatics: No palpable lymphadenopathy, no painful lymphadenopathy. Psychiatric: No anxiety, no depression. Neurologic: No seizure. PHYSICAL EXAMINATION: At the current time, GENERAL: He is alert, responsive, in no acute distress, somewhat dysphonic. VITAL SIGNS: Showed temperature of 97.4, pulse rate 65, respiratory rate 20, blood pressure 134/82. HEENT: His head is normocephalic and atraumatic. Both his pupils are equally reactive. Ears and no se normal. Oral mucosa is moist. Pharyngeal area is clear. NECK: Supple. There is no distention of the jugular and no lymphadenopathy felt. Thyroid gland not palpable. There is no carotid bruit. CHEST: Symmetrical with regular S1, S2. LUNGS: Clear. ABDOMEN: Somewhat distended. He had a coronary artery circulation and he has shifting dullness. We could not appreciate any organomegaly. EXTREMITIES: Limbs showed no edema. NEUROLOGIC: He moves all extremities. We could not appreciate any focal motor deficit. LABORATORY DATA: Drug screen is negative. Chemistry and electrolytes show a sodium of 136, potassiu m 4.4, chloride 101, CO2 of 25, BUN 14, creatinine 0.87, glucose 128, calcium 9.3, total bilirubin 0. 6, AST 23, ALT 21, alkaline phosphatase 109, ammonia 57. CPK 25, troponin less than 0.01. Total varsha irubin 7.2, albumin 4.1, globulin 3.1, lipase 5.1. PT is 13, PTT 30.1. CBC showed WBC of 7, hemoglo bin of 17, hematocrit of 49.7, MCV of 104, platelet of 252. Urinalysis shows a specific gravity of 1 .039, pH of 5.5, glucose is positive, otherwise negative. A head CT was reported to show no evidence of intracranial hemorrhage or mass effect and there is chronic microvascular ischemic changes in vie w of right parietal area. CT angiogram of the head and neck was reported to show an occluded right i nternal carotid artery and dominant left vertebral artery. No significant stenosis on the left side. Chest x-ray was reported to show no evidence of acute cardiopulmonary process. ASSESSMENT AND PLAN: This is a 56-year-old man with a history of hypertension, diabetes me llitus, ETOH abuse who was admitted with dysarthria/dysphonia. Neurology consult was called. We alex l treat him for possible transient ischemic attack. He claims that his speech was worse earlier in t he morning and also he will be treated for impending delirium tremens. Please see orders. He will b e admitted to Neurology floor.
[2017-09-09] MEDS ORDERED: ISOVUE-370 76%-LOCM 1 ML ONE (14:03)
[2017-09-09] MEDS ORDERED: Enalaprilat Dihydrate 1.25 MG/ML VIAL SLOW IVP PRN (14:11)
[2017-09-09] MEDS ORDERED: Dextrose 5% in Water 1,000 ML IV PRN (14:11)
[2017-09-09] MEDS ORDERED: HumaLOG 300 UNITS/3 ML VIAL SC PRN (14:11)
[2017-09-09] MEDS ORDERED: Dextrose 50% Abboject 50 ML SYRINGE SLOW IVP PRN (14:11)
[2017-09-09] MEDS ORDERED: metroNIDAZOLE 500 MG TAB PO SCH (15:00)
[2017-09-09] MEDS: NACL IVPB SCH (15:40)
[2017-09-09] MEDS: DEXTROSE IVPB SCH (15:40)
[2017-09-09] MEDS: THIAMINE HCL IVPB SCH (15:40)
[2017-09-09] MEDS: Carvedilol 25 MG TAB PO SCH (15:40)
--- NOTE | 2017-09-09 17:11 | ULT ---
ULTRASOUND ABDOMEN LIMITED 09/09/17 HISTORY: Question ascites. COMPARISON: None. FINDINGS: No ascites is demonstrated. IMPRESSION: No ascites is demonstrated. POS: [facility]
[2017-09-09] MEDS ORDERED: Cephalexin 250 MG CAP PO SCH (18:00)
[2017-09-09] MEDS: Atorvastatin Calcium 40 MG TAB PO SCH (21:21)
--- NOTE | 2017-09-10 00:39 | CON ---
DATE OF CONSULTATION: 09/09/2017 REFERRING PROVIDER: Dr. Xiomara Tripp. REASON FOR CONSULTATION: Slurred speech. HISTORY OF PRESENT ILLNESS: Mr. Thompson is a pleasant 56-year-old male who has been cons ulted for evaluation of slurred speech and right-sided weakness. Patient reports that some time yest erday, he started noticing that he was having difficulty with getting his words out. He also started noticing slurring speech. He also became weak all over, which prompted him to present to the emerge ncy room. He denies any headache, chest pain, palpitation, nausea, vomiting, abdominal pain. He alfredo s complain of feeling off balance while walking and having noted numbness on his right lower extremit y as well as right side of his face. PAST MEDICAL HISTORY: Significant for hypertension, diabetes. PAST SURGICAL HISTORY: Significant for I&D of scrotal abscess. SOCIAL HISTORY: He is an active smoker. He also has history of alcohol use. He denies illicit drug use. FAMILY HISTORY: Significant for hypertension and diabetes. CURRENT MEDICATIONS: Please review MAR. ALLERGIES: No known drug allergies. REVIEW OF SYSTEMS: As mentioned in the HPI, otherwise negative. PHYSICAL EXAMINATION: VITAL SIGNS: Blood pressure 132/69, pulse of 60, temperature of 97.7, respirations of 20, O2 sats of 96% on room air. GENERAL: Well-developed, well-nourished male in no apparent distress. RESPIRATORY: Clear to auscultation bilaterally. CARDIOVASCULAR: Regular rate and rhythm. NEUROLOGIC: Mental status: Patient is awake, alert, oriented x3. Speech and language: Mild expres sive aphasia noted. Mild dysarthria noted. Cranial nerves: Pupils are 3 mm and reactive. Visual f ields are full to threat. Extraocular muscles are intact. No nystagmus is noted. Face is symmetric . Tongue and uvula are midline. Motor exam showed normal tone and bulk with 4+/5 strength in the ri ght upper and right lower extremity and 5/5 strength in the left upper and left lower extremity. The re is some weakness on the right side. Sensory: Sensation appears intact on both upper and lower ex tremities. Babinski: Plantar responses flexion bilaterally. Coordination intact to [id number] kimberlyn on both sides. LABORATORY DATA: Reviewed, which included CBC, coag panel, CMP, urinalysis, urine drug screen, which is significant for glucose of 128, otherwise unremarkable. IMAGING STUDIES: CT head without contrast was reviewed which showed no acute intracranial abnormalit y. CT angiogram of the head and neck was reviewed, which showed occluded right internal carotid tre ry and left internal carotid artery was intact. IMPRESSION: 1. Expressive aphasia. 2. Right-sided weakness. 3. Hypertension. 4. Diabetes. Mr. Thompson is a pleasant 56-year-old male who presented with an acute 1 day history of right-sided weakness and expressive aphasia and dysarthria. Based on the description, his symptoms are originat ing from the left middle cerebral artery distribution. He has occlusion of the right internal caroti d artery, which was on the non-affected side. At this time, I will recommend obtaining MRI brain wit hout contrast for further evaluation. I would recommend starting him on aspirin 81 mg and Plavix 75 mg for secondary stroke prevention since the right internal carotid artery is completely occluded. Marilee mccrary is not a candidate for any surgery and it is best managed medically. Consult PT, OT, speech therap y. Continue on atorvastatin 40 mg at bedtime. Thank you for your consultation.
[2017-09-10] MEDS: DEXTROSE IVPB SCH ×3 (01:46→21:57)
[2017-09-10] MEDS: THIAMINE HCL IVPB SCH ×3 (01:46→21:57)
[2017-09-10] MEDS: NACL IVPB SCH ×3 (01:46→21:57)
--- NOTE | 2017-09-10 09:09 | PDOC.PN ---
- Subjective Encounter Start Date: 09/10/17 Encounter Start Time: 08:45 Feels lightheaded. - Objective Vital Signs & Weight: Vital Signs (12 hours) Temp Pulse Resp BP BP Pulse Ox 09/10/17 07:00 98.2 F 62 16 158/81 H 92 L 09/10/17 04:00 143/76 H 09/10/17 03:18 98.1 F 64 18 143/76 H 97 09/10/17 00:00 126/58 L 09/09/17 23:12 98.4 F 60 16 126/58 L 97 Weight Weight 215 lb I&O: 09/09/17 09/10/17 09/11/17 06:59 06:59 06:59 Intake Total 1852 Output Total 600 Balance 1252 Result Diagrams: 09/09/17 10:45 09/09/17 10:45 Additional Labs: Accuchecks 09/10/17 09/09/17 09/09/17 05:34 21:19 16:44 POC Glucose 146 H 142 H 120 H Phys Exam - Physical Examination HEENT: PERRLA, sclera anicteric Neck: no JVD Respiratory: clear to auscultation bilateral Cardiovascular: RRR Gastrointestinal: soft, non-tender (+Shiftened dullness) Musculoskeletal: no edema Neurological: moves all 4 limbs Psychiatric: normal affect Dx/Plan (1) Right carotid artery occlusion Code(s): I65.21 - OCCLUSION AND STENOSIS OF RIGHT CAROTID ARTERY Status: Acute Plan: For MRI of the brain. Start plavix, ASA. No indication for surgery at this time f/u with neurology. (2) Right carotid artery occlusion Code(s): I65.21 - OCCLUSION AND STENOSIS OF RIGHT CAROTID ARTERY Status: Acute (3) Cellulitis of scrotum Code(s): N49.2 - INFLAMMATORY DISORDERS OF SCROTUM Status: Acute Comment: seen by ID. (4) Hypertension Code(s): I10 - ESSENTIAL (PRIMARY) HYPERTENSION Status: Chronic Comment: stable. (5) New onset type 2 diabetes mellitus Code(s): E11.9 - TYPE 2 DIABETES MELLITUS WITHOUT COMPLICATIONS Status: Acute Comment: on sliding scale. (6) Alcohol abuse Code(s): F10.10 - ALCOHOL ABUSE, UNCOMPLICATED Status: Chronic - Plan f/u brain MRI. -: For PT/OT -: F/u with neurology. -: Continue ASA, Plavix. * .
[2017-09-10] MEDS: Carvedilol 25 MG TAB PO SCH ×2 (09:46→16:39)
[2017-09-10] MEDS: Aspirin 81 mg Enteric Coated Tablet PO SCH (09:46)
--- NOTE | 2017-09-10 12:03 | PDOC.EVN ---
Event Note - Event Note Event Note: No ascitis demonstrated on US.
--- NOTE | 2017-09-10 12:42 | MRI ---
MRI OF BRAIN PERFORMED WITHOUT CONTRAST ENHANCEMENT: Date: 09/10/17 HISTORY: Stroke symptoms with right-sided weakness. FINDINGS: There is mild ventricular and sulcal prominence for patient's age. There are no signs of intracerebra l hemorrhage or extra-axial fluid collections. On the diffusion-weighted sequence, there is a focus of restricted diffusion in the left periventricu lar white matter near the posterior limb of the internal capsule. Incidental note is made of absence of flow of the cavernous portion of the right internal carotid artery consistent with the history of right internal carotid artery occlusion. IMPRESSION: 1. Fairly small area of infarct involving the left periventricular white matter and left middle cere bral artery distribution. 2. Evidence of lack of flow within the cavernous portion of the right internal carotid artery compat ible with the history of an occluded right internal carotid artery. POS: [facility]
--- NOTE | 2017-09-10 17:17 | CON ---
DATE OF CONSULTATION: 09/10/2017 REASON FOR FOLLOWUP: Scrotal infection. HISTORY OF PRESENT ILLNESS: A 56-year-old whom we had seen recently when he presented with a soft ti ssue infection, right groin and scrotal area associated with alcoholism. The patient had I&D and a p olymicrobial rosana was retrieved including group B strep and 3 different anaerobes. The patient was discharged on Flagyl and oral Keflex and he was admitted now with a left-sided weakness and facial dr oop with concern for CVA. Patient was evaluated by Neurology and the impression was right-sided weak ness and expressive aphasia, probably from left middle cerebral artery distribution cerebrovascular a ccident. MRI of brain completed today showed a small area of infarct left periventricular white albert er as predicted by Dr. Lacy. Currently, Mr. Thompson is awake. Denies headaches, no sore throat, c ough intermittently. No chest pain, no dyspnea. The right groin area wound was progressing well wit h good granulation tissue. PAST MEDICAL HISTORY: Includes alcoholism and recent soft tissue infection, right groin as noted abo ve. SOCIAL HISTORY: Works with [employer], smokes half pack a day. Lives in [place] by himself. FAMILY HISTORY: Noncontributory. CURRENT MEDICATIONS: Aspirin, Lipitor, Coreg, Plavix, IV fluids, Vasotec, glucagon, thiamine. PHYSICAL EXAMINATION: VITAL SIGNS: Essentially normal. Slight elevation in systolic blood pressure. SKIN: Shows the 100% granulating, irregular wound, right groin area. Peripheral IV access. No Fole y catheter. HEENT: Ocular movements are conjugate. Numerous missing teeth. The remainder ones with marked deca y and gum disease. NECK: Supple. LUNGS: Coarse breath sounds, some rhonchi. HEART: S1, S2, regular rate. ABDOMEN: Soft. Not distended. No bladder distention. GENITOURINARY: No genital abnormalities otherwise. EXTREMITIES: Moves extremities equally. NEUROLOGIC: Little bit of dysarthria. LABORATORY DATA: WBC count 7000, hemoglobin 17, platelets 252, creatinine 0.87. Microbiology: No n ew findings. ASSESSMENT: Alcoholism, chronic smoking, and left small middle cerebral artery distribution cerebrov ascular accident. DISCUSSION: The right groin infection has completely resolved and advised discontinuation of antimic robial therapy, continuation of wound care alone.
[2017-09-10] MEDS: Atorvastatin Calcium 40 MG TAB PO SCH (21:06)
[2017-09-11 11:06] VITALS: BMI 35.4
[2017-09-11] MEDS: Clopidogrel Bisulfate 75 MG TAB PO SCH (11:22)
[2017-09-11] MEDS: Carvedilol 25 MG TAB PO SCH ×2 (11:22→18:27)
[2017-09-11] MEDS: Aspirin 81 mg Enteric Coated Tablet PO SCH (11:22)
[2017-09-11] MEDS: THIAMINE HCL IVPB SCH ×2 (11:22→22:08)
[2017-09-11] MEDS: DEXTROSE IVPB SCH ×2 (11:22→22:08)
[2017-09-11] MEDS: NACL IVPB SCH ×2 (11:22→22:08)
[2017-09-11 15:55] LABS: #Eosinphils 0.1 thou/uL (0.0-0.7); #Lymphocytes 1.3 thou/uL (1.20-3.40); #Monocytes 0.8 thou/uL (0.11-0.59); #Neutrophils 5.6 thou/uL (1.40-6.50); %Basophils 0.6 % (0.0-1.0); %Eosinophils 1.9 % (0.0-10.0); %Lymphocytes 16.4 % (21.0-51.0); %Monocytes 9.7 % (0.0-10.0); Hematocrit 47.2 % (42.0-52.0); Mean Platelet Volume 6.4 fL (7.4-10.4); Red Blood Cell (RBC) Count 4.49 mill/uL (4.70-6.10); White Blood Cell (WBC) Count 7.8 thou/uL (4.8-10.8)
[2017-09-11 16:03] LABS: Macrocytosis SLIGHT = 6-15 cells (100X) (0-5/hpf); Polychromasia SLIGHT = 2-3 cells (100X) (0-2/hpf)
[2017-09-11 16:07] LABS: Anion Gap 14 mmol/L (10-20); BUN (Urea Nitrogen) 8 mg/dL (8.4-25.7); BUN/Creatinine Ratio 9.52; Calc. Creatinine Clearance 133 mL/min (70-130); Calcium 8.9 mg/dL (7.8-10.44); Carbon Dioxide 27 mmol/L (22-29); Chloride 98 mmol/L (98-107); Estimated GFR-MDRD Greater than 90; Magnesium 2.2 mg/dL (1.6-2.6)
--- NOTE | 2017-09-11 20:29 | PDOC.PN ---
- Subjective Encounter Start Date: 09/11/17 Encounter Start Time: 11:00 Patient seen and examined. No new complaints. No overnight events. No new focal deficits. Unsteady gait - Objective MAR Reviewed: Yes Vital Signs & Weight: Vital Signs (12 hours) Temp Pulse Pulse Pulse Resp BP BP 09/11/17 19:18 97.8 F 66 18 09/11/17 16:00 171/81 H 09/11/17 15:57 97.8 F 65 20 09/11/17 13:25 68 63 139/75 09/11/17 12:00 168/86 H 09/11/17 11:36 98.2 F 67 16 09/11/17 09:47 64 64 160/83 H BP BP Pulse Ox 09/11/17 19:18 142/76 H 97 09/11/17 16:00 09/11/17 15:57 171/81 H 97 09/11/17 13:25 142/68 H 09/11/17 12:00 09/11/17 11:36 168/86 H 94 L 09/11/17 09:47 181/85 H Weight Admit Weight 213 lb 1.6 oz Weight 213 lb 1.6 oz I&O: 09/10/17 09/11/17 09/12/17 06:59 06:59 06:59 Intake Total 1852 3048 1700 Output Total 600 1600 1000 Balance 1252 1448 700 Result Diagrams: 09/11/17 15:40 09/11/17 15:40 Additional Labs: Accuchecks 09/11/17 09/11/17 09/11/17 16:59 10:46 05:55 POC Glucose 118 H 115 H 147 H 09/10/17 21:12 POC Glucose 126 H EKG Reviewed by me: Yes (Tele SR) Phys Exam - Physical Examination Constitutional: NAD Respiratory: no wheezing, no rales, no rhonchi Symmetrical Cardiovascular: RRR, no significant murmur, no rub no heaves Gastrointestinal: soft, non-tender, no distention, positive bowel sounds Neurological: moves all 4 limbs No new focal deficits. Psychiatric: normal affect, A&O x 3 Dx/Plan - Plan DVT proph w/SCDs IMPRESSION: 1. Acute CVA - left MCA and perivent white matter dist - on ASA/Plavix 2. Recent scrotal infection (discharged on 08/14) - Atbx dced per ID 3. Occluded Rt ICA 4. HTN 5. DM2 6. Chronic alcoholism PLAN: * Cont ASA/Plavix * Will need some assistance for safe discharge * Add Heparin for DVT prophylaxis * Add PRN meds * Cont to monitor * Stroke team following * Add ASE protocol with Ativan to prevent withdrawals * DC planning Review of Systems - Review of Systems Respiratory: negative: Cough, Dry, Shortness of Breath, Hemoptysis, SOB with Excertion, Pleuritic Pain, Sputum, Wheezing Cardiovascular: negative: Chest Pain, Palpitations, Orthopnea, Paroxysmal Noc. Dyspnea, Edema, Light Headedness Gastrointestinal: negative: Nausea, Vomiting, Abdominal Pain, Diarrhea, Constipation, Melena, Hematochezia - Medications/Allergies Allergies/Adverse Reactions: Allergies Allergy/AdvReac Type Severity Reaction Status Date / Time No Known Drug Allergies Allergy Verified 08/08/17 22:45 Medications: Current Medications Aspirin (Ecotrin) 81 mg PO DAILY [facility] Last Admin: 09/11/17 11:22 Dose: 81 mg Atorvastatin Calcium (Lipitor) 40 mg PO HS [facility] Last Admin: 09/10/17 21:06 Dose: 40 mg Carvedilol (Coreg) 25 mg PO BID-WM [facility] Last Admin: 09/11/17 18:27 Dose: 25 mg Clopidogrel Bisulfate (Plavix) 75 mg PO DAILY [facility] Last Admin: 09/11/17 11:22 Dose: 75 mg Dextrose/Water (Dextrose 50%) 25 gm SLOW IVP PRN PRN PRN Reason: Hypoglycemia Enalaprilat (Vasotec) 1.25 mg SLOW IVP Q6H PRN PRN Reason: BP > 220/110 Glucagon (Glucagon) 1 mg IM PRN PRN PRN Reason: Hypoglycemia Thiamine HCl 100 mg/ Dextrose/ (Sodium Chloride) 1,001 mls @ 100 mls/hr IVPB .Q10H1M [facility] Last Admin: 09/11/17 11:22 Dose: 1,001 mls Dextrose/Water (D5w) 1,000 mls @ 0 mls/hr IV .Q0M PRN; As Directed PRN Reason: Hypoglycemia Insulin Human Lispro (Humalog) 0 units SC .MILD SLIDING SCALE PRN PRN Reason: Mild Correctional Scale
[2017-09-11] MEDS: Atorvastatin Calcium 40 MG TAB PO SCH (21:17)
[2017-09-12] MEDS ORDERED: cloNIDine 0.1 MG TAB PO PRN (06:25)
[2017-09-12] MEDS ORDERED: hydrALAZINE 20 MG/ML VIAL SLOW IVP PRN (06:25)
[2017-09-12] MEDS ORDERED: Acetaminophen 325 MG TAB PO PRN (06:25)
[2017-09-12] MEDS ORDERED: Lorazepam 1 MG TAB PO PRN (06:25)
[2017-09-12] MEDS ORDERED: Heparin 5,000 UNITS/ML VIAL SC SCH (09:00)
[2017-09-12] MEDS: THIAMINE HCL IVPB SCH (09:37)
[2017-09-12] MEDS: NACL IVPB SCH (09:37)
[2017-09-12] MEDS: Aspirin 81 mg Enteric Coated Tablet PO SCH (09:37)
[2017-09-12] MEDS: DEXTROSE IVPB SCH (09:37)
[2017-09-12] MEDS: Clopidogrel Bisulfate 75 MG TAB PO SCH (09:38)
[2017-09-12] MEDS: Carvedilol 25 MG TAB PO SCH ×2 (09:38→16:54)
--- NOTE | 2017-09-12 11:30 | PDOC.PN ---
- Subjective Encounter Start Date: 09/12/17 Encounter Start Time: 11:00 Patient seen and examined. No new complaints. No overnight events. - Objective MAR Reviewed: Yes Vital Signs & Weight: Vital Signs (12 hours) Temp Pulse Pulse Pulse Resp BP BP 09/12/17 08:44 65 61 155/65 H 09/12/17 07:10 98.4 F 60 18 09/12/17 04:17 153/66 H 09/12/17 04:00 97.1 F L 60 16 09/12/17 00:02 173/85 H 09/12/17 00:00 98.7 F 69 18 BP BP Pulse Ox 09/12/17 08:44 139/72 09/12/17 07:10 156/81 H 96 09/12/17 04:17 09/12/17 04:00 153/66 H 95 09/12/17 00:02 09/12/17 00:00 173/85 H 97 Weight Admit Weight 213 lb 1.6 oz Weight 213 lb 1.6 oz I&O: 09/11/17 09/12/17 09/13/17 06:59 06:59 06:59 Intake Total 3048 3128 Output Total 1600 2670 Balance 1448 458 Result Diagrams: 09/11/17 15:40 09/11/17 15:40 Additional Labs: Accuchecks 09/12/17 09/11/17 09/11/17 05:49 20:35 16:59 POC Glucose 135 H 132 H 118 H EKG Reviewed by me: Yes (Tele SR) Phys Exam - Physical Examination Constitutional: NAD Respiratory: no wheezing, no rhonchi Cardiovascular: RRR, no rub Gastrointestinal: soft, non-tender, positive bowel sounds Musculoskeletal: no edema Neurological: non-focal, moves all 4 limbs Psychiatric: A&O x 3 Dx/Plan - Plan cont current plan of care, DVT proph w/SCDs IMPRESSION: 1. Acute CVA - left MCA and perivent white matter dist - on ASA/Plavix 2. Recent scrotal infection (discharged on 08/14) - Atbx dced per ID 3. Occluded Rt ICA - no intervention reqd 4. HTN - controlled 5. DM2 - on sliding scale 6. Chronic alcoholism - on ASE protocol 7. Ruma B12 def PLAN: * Replace Vit B12 * Add MVM, thiamine * DC to Rehab - [facility] - if available * Cont ASA/Plavix * Will need some assistance for safe discharge * DC Heparin - Patient requested to dc - He will ambulate * Cont to monitor * Stroke team following * DC planning Review of Systems - Review of Systems Respiratory: negative: Cough, Dry, Shortness of Breath, Hemoptysis, SOB with Excertion, Pleuritic Pain, Sputum, Wheezing Cardiovascular: negative: Chest Pain, Palpitations, Orthopnea, Paroxysmal Noc. Dyspnea, Edema, Light Headedness, Other Gastrointestinal: negative: Nausea, Vomiting, Abdominal Pain, Diarrhea, Constipation, Melena, Hematochezia, Other - Medications/Allergies Allergies/Adverse Reactions: Allergies Allergy/AdvReac Type Severity Reaction Status Date / Time No Known Drug Allergies Allergy Verified 08/08/17 22:45 Medications: Current Medications Acetaminophen (Tylenol) 325 mg PO Q6H PRN PRN Reason: Headache/Fever or Pain Aspirin (Ecotrin) 81 mg PO DAILY [facility] Last Admin: 09/12/17 09:37 Dose: 81 mg Atorvastatin Calcium (Lipitor) 40 mg PO HS [facility] Last Admin: 09/11/17 21:17 Dose: 40 mg Carvedilol (Coreg) 25 mg PO BID-WM [facility] Last Admin: 09/12/17 09:38 Dose: 25 mg Clonidine (Catapres) 0.1 mg PO Q4H PRN PRN Reason: Systolic BP > 180 Clopidogrel Bisulfate (Plavix) 75 mg PO DAILY [facility] Last Admin: 09/12/17 09:38 Dose: 75 mg Dextrose/Water (Dextrose 50%) 25 gm SLOW IVP PRN PRN PRN Reason: Hypoglycemia Enalaprilat (Vasotec) 1.25 mg SLOW IVP Q6H PRN PRN Reason: BP > 220/110 Glucagon (Glucagon) 1 mg IM PRN PRN PRN Reason: Hypoglycemia Heparin Sodium (Porcine) (Heparin) 5,000 units SC BID [facility] Last Admin: 09/12/17 09:38 Dose: 5,000 units Hydralazine HCl (Apresoline) 10 mg SLOW IVP Q4H PRN PRN Reason: SBP Greater Than 180 Thiamine HCl 100 mg/ Dextrose/ (Sodium Chloride) 1,001 mls @ 100 mls/hr IVPB .Q10H1M [facility] Last Admin: 09/12/17 09:37 Dose: 1,001 mls Dextrose/Water (D5w) 1,000 mls @ 0 mls/hr IV .Q0M PRN; As Directed PRN Reason: Hypoglycemia Insulin Human Lispro (Humalog) 0 units SC .MILD SLIDING SCALE PRN PRN Reason: Mild Correctional Scale Lorazepam (Ativan) 1 mg PO Q4H PRN PRN Reason: ASE >=9
[2017-09-12] MEDS ORDERED: Cyanocobalamin (Vitamin B-12) 1,000 MCG TAB PO SCH (11:45)
[2017-09-12] MEDS ORDERED: Folic Acid 1 MG TAB PO SCH (11:45)
[2017-09-12] MEDS: Atorvastatin Calcium 40 MG TAB PO SCH (20:25)
[2017-09-13 05:39] LABS: Anion Gap 12 mmol/L (10-20); BUN (Urea Nitrogen) 9 mg/dL (8.4-25.7); BUN/Creatinine Ratio 11.39; Calc. Creatinine Clearance 141 mL/min (70-130); Calcium 9.5 mg/dL (7.8-10.44); Carbon Dioxide 26 mmol/L (22-29); Chloride 101 mmol/L (98-107); Estimated GFR-MDRD Greater than 90; Phosphorus 3.7 mg/dL (2.3-4.7)
[2017-09-13 05:43] LABS: Band 8 % (5-11); Hematocrit 47.3 % (42.0-52.0); Mean Platelet Volume 6.4 fL (7.4-10.4); Neutrophil 56 % (42-75); Red Blood Cell (RBC) Count 4.54 mill/uL (4.70-6.10); White Blood Cell (WBC) Count 5.4 thou/uL (4.8-10.8)
[2017-09-13] MEDS ORDERED: Multivit, Therapeutic 1 TAB PO SCH (09:00)
[2017-09-13] MEDS ORDERED: Folic Acid 1 MG TAB PO SCH (09:00)
[2017-09-13] MEDS ORDERED: Cyanocobalamin (Vitamin B-12) 1,000 MCG TAB PO SCH (09:00)
[2017-09-13] MEDS: Carvedilol 25 MG TAB PO SCH (09:27)
[2017-09-13] MEDS: Clopidogrel Bisulfate 75 MG TAB PO SCH (09:27)
[2017-09-13] MEDS: Aspirin 81 mg Enteric Coated Tablet PO SCH (09:27)
[2017-09-13 13:05] VITALS: BP 138/86; TEMP 98.8
--- NOTE | 2017-09-14 07:19 | DIS ---
DATE OF DISCHARGE: 09/13/2017 DISCHARGE DISPOSITION: Home. [facility] care through [facility] will be arranged. ALLERGIES: No known drug allergies. DISCHARGE MEDICATIONS: 1. Aspirin 81 mg daily. 2. Plavix 75 mg daily. 3. Lipitor 40 mg at bedtime. 4. Carvedilol 25 mg b.i.d. 5. Vitamin B12 1000 mcg daily. 6. Metformin 1000 mg b.i.d. 7. Multivitamin 1 tablet daily. INPATIENT CONSULTANTS: Neurology, Dr. Krystyna Lacy; Infectious Disease, Dr. Welch. BRIEF HOSPITAL COURSE: The patient is a 56-year-old male with hypertension and diabetes mellitus typ e 2, presented to the hospital with stroke-like symptoms. Please refer to the history and physical d ated 09/09/2017 for further details. The patient was admitted to the hospital with a diagnosis of acute CVA. Initial CT scan of the brain was negative for acute findings. CT angiography of the head and neck was consistent with occluded r ight internal carotid artery. There was no significant stenosis of the left internal carotid artery. MRI of the brain was consistent with a small area of infarct involving the left periventricular whi te matter and left middle cerebral artery distribution. He was evaluated by Neurology, Dr. Lacy, who recommended aspirin and Plavix along with aggressive risk factor modification. He will be discharge d home with home health care through [facility] ([facility] Due to recent scrotal cellulitis, patient was evaluated by Dr. Welch, who recommended no further anti biotic treatment. He has been cleared by consultants for discharge. FINAL DIAGNOSES: 1. Acute cerebrovascular accident as discussed above. 2. Occluded right internal carotid artery. 3. Recent scrotal infection. No need for further antibiotics per Infectious Disease. 4. Hypertension. 5. Diabetes mellitus, type 2. 6. Chronic alcoholism. Patient was advised to start thiamine, folic acid, and multivitamin over-the -counter. 7. Vitamin B12 deficiency. His vitamin B12 level was 201. SIGNIFICANT LABORATORY DATA: Urine drug screen was negative. Fasting lipid profile showed cholester ol of 196, triglyceride 132, HDL 51, LDL of 119. Plan of care was discussed with the patient. He stated understanding. Total time coordinating the discharge of this patient was 35 minutes.
== END 2017-09-13 16:50 | disposition home health service (06) | DRG 65 ==
LOC: ERS 10:38 → 2SE 14:00
PROVIDERS: ADMIT Hospitalist; ATTEND Hospitalist
DX: I63.512 Cerebral infarction due to unspecified occlusion or stenosis of left middle cerebral artery (principal); G81.91 Hemiplegia, unspecified affecting right dominant side; I10 Essential (primary) hypertension; I65.21 Occlusion and stenosis of right carotid artery; E11.9 Type 2 diabetes mellitus without complications; Z79.01 Long term (current) use of anticoagulants; Z79.84 Long term (current) use of oral hypoglycemic drugs; Z79.82 Long term (current) use of aspirin; F10.20 Alcohol dependence, uncomplicated; E53.8 Deficiency of other specified B group vitamins; F17.210 Nicotine dependence, cigarettes, uncomplicated; R47.81 Slurred speech; E78.5 Hyperlipidemia, unspecified
CPT/HCPCS: 0042T; 36415; 36416; 70450; 70496; 70498; 70551; 71010; 76705; 80053; 80061; 80069; 80306; 80307; 81003; 82140; 82550; 82553; 82607; 82746; 83690; 83735; 84484; 85025; 85610; 85652; 85730; 86038; 93005; 94760; 96360; G8978-GP-CJ; G8979-GP-CH; G8987-GO-CJ; G8988-GO-CI; G9162-GN-CK; G9163-GN-CK; J1644; J3411; J7042

== ENCOUNTER 2017-10-25 16:28 | Inpatient (IN) | payer SELFPAY, OTHER ==
[2017-10-25 16:55] LABS: INR-International Normal Ratio 0.9; Prothrombin Time 12.5 SEC (12.0-14.7)
[2017-10-25 16:56] LABS: PTT 29.5 SEC (22.9-36.1)
[2017-10-25 17:00] LABS: Hemoglobin 18.5 g/dL (14.0-18.0); Mean Corpuscular HGB CONC 34.3 g/dL (32.0-36.0); Mean Corpuscular Hemoglobin 35.3 pg (27.0-31.0); Mean Platelet Volume 7.8 fL (7.4-10.4); Platelet Count 196 thou/uL (130-400); RBC Distribution Width 12.3 % (11.5-14.5); Red Blood Cell (RBC) Count 5.26 mill/uL (4.70-6.10); White Blood Cell (WBC) Count 7.1 thou/uL (4.8-10.8)
--- NOTE | 2017-10-25 17:02 | CT ---
CT OF BRAIN PERFORMED WITHOUT CONTRAST ENHANCEMENT 10/25/17 HISTORY: Left sided facial droop. Left arm weakness. COMPARISON: An 09/09/17 study. Ventricular and cisternal system is mildly prominent. There is decreased attenuation of the periventr icular white matter consistent with some chronic white matter change. Since the prior exam, there is a new area of decreased attenuation which is near the posterior limb of the left internal capsule and left periventricular white matter. There is no new right sided abnormalities noted. IMPRESSION: Age indeterminate area of decreased attenuation near the posterior limb of the left internal capsule left centrum semiovale region. It is new as compared to the 09/09/17 study. I cannot exclude this as being a subacute infarct given the lack of any history of any symptoms that would correspond to this. It may be old. No hemorrhage or mass effect. Findings telephoned to Dr. Luu at 1640 hours. POS: [facility]
[2017-10-25 17:05] LABS: ALT (SGPT) 24 U/L (8-55); AST (SGOT) 25 U/L (5-34); Albumin 4.2 g/dL (3.5-5.0); Alkaline Phosphatase 89 U/L (40-150); Anion Gap 18 mmol/L (10-20); BUN (Urea Nitrogen) 12 mg/dL (8.4-25.7); Bilirubin, Total 0.4 mg/dL (0.2-1.2); Calc. Creatinine Clearance 0 mL/min (70-130); Calcium 9.6 mg/dL (7.8-10.44); Carbon Dioxide 24 mmol/L (22-29); Chloride 99 mmol/L (98-107); Estimated GFR-MDRD 60; Globulin 3.8 g/dL (2.4-3.5); Glucose 120 mg/dL (70-105); Potassium 4.3 mmol/L (3.5-5.1); Sodium 137 mmol/L (136-145)
[2017-10-25 17:06] LABS: CKMB 0.7 ng/mL (0-6.6); Troponin I Less than 0.010 ng/mL (< 0.028)
[2017-10-25 17:18] LABS: Band 3 % (5-11); Lymphocytes 35 % (21-51); MDiff Complete? YES; Monocytes 4 % (0-10); Neutrophil 57 % (42-75); PLT Morphology Comment Appears Adequate; Reactive Lymphocytes 1 % (0-10)
[2017-10-25 18:54] LABS: Bilirubin Negative (Negative); Blood, Urine Negative (Negative); Clarity CLEAR (Clear); Glucose, Urine (Dipstick) Negative (Negative); Leukocyte Negative (Negative); Nitrite Negative (Negative); Protein, Urine (Dipstick) Negative (Neg-Trace); Specific Gravity, Urine 1.014 (1.002-1.036)
[2017-10-25] MEDS ORDERED: Acetaminophen 325 MG TAB PO PRN (19:56)
[2017-10-25] MEDS ORDERED: HumaLOG 300 UNITS/3 ML VIAL SC PRN (19:56)
[2017-10-25] MEDS ORDERED: Guaifenesin DM 100-10/5 ML UDCUP PO PRN (19:56)
[2017-10-25] MEDS ORDERED: Dextrose 5% in Water 1,000 ML IV PRN (19:56)
[2017-10-25] MEDS ORDERED: Senokot 8.6 MG TAB PO PRN (19:56)
[2017-10-25] MEDS ORDERED: Dextrose 50% Abboject 50 ML SYRINGE SLOW IVP PRN (19:56)
[2017-10-25] MEDS: Atorvastatin Calcium 40 MG TAB PO SCH (21:01)
--- NOTE | 2017-10-25 22:43 | HP ---
REASON FOR ADMISSION: Left-sided cerebrovascular accident. HISTORY OF PRESENT ILLNESS: The patient gives history of sitting in car with severe headache. This started around 4:00 p.m. He started developing tingling sensation in the left upper extremity, which progressed to the left lower extremity. He has had severe headache. His fellow travelers in the car noticed that he was not able to talk. The patient states he was conscious and knew what was going on. No complaints of chest pain, palpitations, PND or orthopnea. The patient has had prior history of left-sided hemiparesis. He still drags his left lower extremity when he ambulates, but has regained all his strength in the left upper extremity. He is left-handed person. PAST MEDICAL/SURGICAL HISTORY: Diabetes mellitus type 2, dyslipidemia, hypertension, history of CVA in May of this year with left hemiparesis, occluded right internal carotid artery, left internal carotid artery disease as well. He has had necrotizing fasciitis in the groin. CURRENT MEDICATIONS: The patient takes Coreg 25 mg twice daily, metformin 1000 mg twice daily, Plavix 75 mg daily, aspirin 81 mg daily, Lipitor 40 mg p.o. at bedtime. ALLERGIES: No known drug allergies. PERSONAL HISTORY: Smokes half pack a day and drinks around 6 beers daily. Denies substance abuse. FAMILY HISTORY: Mom at the age of 54 years. She in her sleep and was suspected to have [place]. Dad of colon cancer in his 70s. REVIEW OF SYSTEMS: The following complete review of systems was negative, unless otherwise mentioned in the HPI or below: Constitutional: Weight loss or gain, ability to conduct usual activities. Skin: Rash, itching. Eyes: Double vision, pain. ENT/Mouth: Nose bleeding, neck stiffness, pain, tenderness. Cardiovascular: Palpitations, dyspnea on exertion, orthopnea. Respiratory: Shortness of breath, wheezing, cough, hemoptysis, fever or night sweats. Gastrointestinal: Poor appetite, abdominal pain, heartburn, nausea, vomiting, constipation, or diarrhea. Genitourinary: Urgency, frequency, dysuria, nocturia. Musculoskeletal: Pain, swelling. Neurologic/Psychiatric: Anxiety, depression. Allergy/Immunologic: Skin rash, bleeding tendency. PHYSICAL EXAMINATION: GENERAL: The patient is a 56-year-old male who is currently not in any acute distress. VITAL SIGNS: Blood pressure 176/94 on arrival, pulse 90 per minute, respiratory rate 16 per minute, temperature 98.3 degrees Fahrenheit, saturating 96% on room air. NECK: Supple, no elevated JVD. HEENT: Extraocular muscles intact. Pupils reacting to light. Oral cavity mucous membranes are moist. No exudates or congestion. CARDIOVASCULAR: S1, S2 heard. Regular rhythm. RESPIRATORY: Air entry 1+ bilateral. Scattered rhonchi, plus no wheezes. ABDOMEN: Soft, bowel sounds heard. No tenderness, rigidity or guarding. EXTREMITIES: The patient's right index finger is swollen. He also has an ulcer in the web between right second and third finger. He states it has been swollen for the last 3-4 weeks now and it is tender to flex. No peripheral edema or calf tenderness. VASCULAR SYSTEM: Peripheral pulses 1+ bilateral. No ischemic ulcerations or gangrene. CENTRAL NERVOUS SYSTEM: The patient has mild flattening of nasolabial fold on the right side. Cranial nerves are grossly intact. Strength is 4/5 in left upper extremity, around 3/5 in the left lower extremity. He can lift his left lower extremity against gravity up to around 30-40 degrees up from the bed. Right upper and lower extremity strength is 5/5, reflexes are 2+ bilateral. Babinski is downgoing on the right. Equivocal on the left. Tone is normal in all 4 extremities. Gait was not tested. PSYCHIATRIC: The patient's mood is euthymic. No hallucinations or delusions. LABORATORY AND X-RAY FINDINGS: EKG done shows sinus rhythm at 91 beats per minute. There is RBBB seen. White count of 7, H&H 18 and 54, platelet count is 196, MCV is 103 with 57% neutrophils. PT, INR, PTT within normal limits. Electrolytes are stable. BUN 12, creatinine 1.2, glucose 120. Liver enzymes within normal limits. One set of cardiac enzymes were negative. Albumin is 4.2. CT brain shows age indeterminate area of decreased attenuation near the posterior limb of left internal capsule in the left centrum semiovale area. This is something new when compared to prior CAT scan done on the 09 of September, last year. No hemorrhage or mass effect seen. CLINICAL IMPRESSION AND PLAN: The patient will be admitted to stroke unit for possible worsening of left-sided weakness, which he has already sustained from a prior cerebrovascular accident with complete occlusion of right internal carotid artery. We will continue his aspirin and Plavix. We will reduce his Coreg to 6.25 mg twice daily. The patient continues to abuse alcohol and drinks almost six pack a day and smokes more than half pack a day. We will continue his vitamin B12 as before. He will be on Humalog coverage. We will do a complete stroke workup including echo with 2D Doppler and MRI without contrast. We will consult Dr. Lacy who is butadiene converter helper for Neurology. The patient has right index finger abscess with ulcer in the web between right and third index finger. We will consult hand surgeon, who is butadiene converter helper/Orthopedic Surgery for the right index finger and we will obtain imaging studies. This likely needs debridement. Could be gout in view of patient's heavy drinking versus injury with progression of inflammatory findings in the hand. DUANE
[2017-10-25 22:58] LABS: Troponin I Less than 0.010 ng/mL (< 0.028)
--- NOTE | 2017-10-25 23:01 | RAD ---
EXAM: ONE VIEW RIGHT HAND INDEX FINGER 10/25/17 HISTORY: Evaluate for abscess. COMPARISON: None. FINDINGS: Joint spaces are preserved. No fracture. No cortical irregularity or periosteal reaction. Soft tissue swelling is noted. IMPRESSION: Soft tissue swelling. Correlate for cellulitis. POS: [facility]
--- NOTE | 2017-10-25 23:10 | RAD ---
TWO VIEWS RIGHT HAND 10/25/17 HISTORY: Evaluate for abscess. COMPARISON: None. FINDINGS: There is soft tissue swelling along the index finger. Joint space is preserved. No radiographic evide nce of osteomyelitis. IMPRESSION: Soft tissue swelling of the index finger. Correlate for cellulitis. No radiographic evidence of osteo myelitis. POS: [facility]
[2017-10-26 05:03] LABS: #Basophils 0.1 thou/uL (0.0-0.2); #Eosinphils 0.1 thou/uL (0.0-0.7); #Lymphocytes 1.9 thou/uL (1.20-3.40); #Monocytes 0.7 thou/uL (0.11-0.59); #Neutrophils 3.7 thou/uL (1.40-6.50); %Basophils 0.8 % (0.0-1.0); %Lymphocytes 29.3 % (21.0-51.0); %Monocytes 10.9 % (0.0-10.0); Hemoglobin 16.4 g/dL (14.0-18.0); Mean Corpuscular HGB CONC 33.7 g/dL (32.0-36.0); Mean Corpuscular Hemoglobin 34.7 pg (27.0-31.0); Mean Platelet Volume 6.9 fL (7.4-10.4); Platelet Count 213 thou/uL (130-400); RBC Distribution Width 12.1 % (11.5-14.5); Red Blood Cell (RBC) Count 4.73 mill/uL (4.70-6.10); White Blood Cell (WBC) Count 6.5 thou/uL (4.8-10.8)
[2017-10-26 05:31] LABS: Anion Gap 14 mmol/L (10-20); BUN (Urea Nitrogen) 16 mg/dL (8.4-25.7); Calc. Creatinine Clearance 132 mL/min (70-130); Calcium 9.4 mg/dL (7.8-10.44); Carbon Dioxide 25 mmol/L (22-29); Cardiac Risk 3.7 (Less than 4.5); Chloride 101 mmol/L (98-107); Cholesterol 194 mg/dl (< 200 Desired); Estimated GFR-MDRD Greater than 90; Glucose 108 mg/dL (70-105); HDL Cholesterol 53 mg/dL (>60 Neg Risk); LDL Cholesterol, Calculated 116 mg/dL; Potassium 4.2 mmol/L (3.5-5.1); Sodium 136 mmol/L (136-145); Triglycerides 124 mg/dL (Less than 150)
[2017-10-26] MEDS ORDERED: Vancomycin HCl 1 GM in Premix Bag 1 BAG IVPB SCH (09:00)
[2017-10-26] MEDS: Cyanocobalamin (Vitamin B-12) 1,000 MCG TAB PO SCH (09:17)
[2017-10-26] MEDS: Aspirin 81 mg Enteric Coated Tablet PO SCH (09:17)
[2017-10-26] MEDS: Multivit, Therapeutic 1 TAB PO SCH (09:18)
[2017-10-26] MEDS: Famotidine 20 MG TAB PO SCH (09:18)
[2017-10-26] MEDS: Enoxaparin Sodium 40 MG/0.4 ML SYRINGE SC SCH (09:18)
[2017-10-26] MEDS: Clopidogrel Bisulfate 75 MG TAB PO SCH (09:18)
[2017-10-26] MEDS: Carvedilol 6.25 MG TAB PO SCH ×2 (09:18→16:33)
[2017-10-26] MEDS: Vancomycin HCl 1.5 GM in Sodium Chloride 0.9% 250 ML 300 ML IVPB SCH ×2 (11:12→17:44)
[2017-10-26] MEDS ORDERED: Piperacillin/Tazobactam 3.375 GM in Sodium Chloride 0.9% 100 ML IVPB SCH (12:00)
--- NOTE | 2017-10-26 12:04 | PDOC.PN ---
- Subjective Encounter Start Date: 10/26/17 Encounter Start Time: 09:00 Subjective: is able to move his left extremities, still has some tingling in left UE bu -: -t moves well - Objective Resuscitation Status: Resuscitation Status FULL:Full Resuscitation MAR Reviewed: Yes Vital Signs & Weight: Vital Signs (12 hours) Temp Pulse Pulse Pulse Resp BP BP 10/26/17 09:18 140/77 10/26/17 08:08 69 72 130/72 10/26/17 07:39 97.5 F L 66 16 10/26/17 03:41 140/77 10/26/17 03:36 98.0 F 71 16 10/26/17 00:05 127/72 BP BP Pulse Ox 10/26/17 09:18 10/26/17 08:08 150/70 H 10/26/17 07:39 146/80 H 97 10/26/17 03:41 10/26/17 03:36 140/77 94 L 10/26/17 00:05 Weight Weight 215 lb 3.2 oz I&O: 10/25/17 10/26/17 10/27/17 06:59 06:59 06:59 Intake Total 520 Output Total 550 Balance 520 -550 Result Diagrams: 10/26/17 04:03 10/26/17 04:03 Additional Labs: Accuchecks 10/26/17 10/25/17 05:31 20:48 POC Glucose 118 H 114 H Phys Exam - Physical Examination HEENT: PERRLA, moist MMs Neck: no JVD, supple Respiratory: no wheezing, no rales Cardiovascular: RRR, no significant murmur Gastrointestinal: soft, non-tender, positive bowel sounds Musculoskeletal: pulses present right index finger swelling has come down, tender over prox phalanx Neurological: non-focal, moves all 4 limbs Psychiatric: A&O x 3 Dx/Plan (1) Acute CVA (cerebrovascular accident) Code(s): I63.9 - CEREBRAL INFARCTION, UNSPECIFIED Status: Acute Comment: prior left hemiparesis, is able to ambulate, has occluded right carotids (2) Abscess of right index finger Code(s): L02.511 - CUTANEOUS ABSCESS OF RIGHT HAND Status: Acute (3) Dyslipidemia Code(s): E78.5 - HYPERLIPIDEMIA, UNSPECIFIED Status: Chronic (4) Tobacco abuse Code(s): Z72.0 - TOBACCO USE Status: Chronic (5) Obesity (BMI 30.0-34.9) Code(s): E66.9 - OBESITY, UNSPECIFIED Status: Chronic (6) Alcohol abuse Code(s): F10.10 - ALCOHOL ABUSE, UNCOMPLICATED Status: Chronic (7) Hypertension Code(s): I10 - ESSENTIAL (PRIMARY) HYPERTENSION Status: Chronic Qualifiers: Hypertension type: essential hypertension Qualified Code(s): I10 - Essential (primary) hypertension Comment: stable. - Plan is on vanc and zosyn for right index finger abscess/cellulitis -: MRI and echo for left parasthesias with weakness -: no osteo on xrays -: watch for alc withdrawal -: is on asp and plavix with lipitor * . Review of Systems - Medications/Allergies Allergies/Adverse Reactions: Allergies Allergy/AdvReac Type Severity Reaction Status Date / Time No Known Drug Allergies Allergy Verified 10/25/17 20:52 Medications: Current Medications Acetaminophen (Tylenol) 650 mg PO Q4H PRN PRN Reason: Headache/Fever or Pain Aspirin (Ecotrin) 81 mg PO DAILY [facility] Last Admin: 10/26/17 09:17 Dose: 81 mg Atorvastatin Calcium (Lipitor) 40 mg PO HS [facility] Last Admin: 10/25/17 21:01 Dose: 40 mg Carvedilol (Coreg) 6.25 mg PO BID-WM [facility] Last Admin: 10/26/17 09:18 Dose: 6.25 mg Clopidogrel Bisulfate (Plavix) 75 mg PO DAILY [facility] Last Admin: 10/26/17 09:18 Dose: 75 mg Cyanocobalamin (Vitamin B-12) 1,000 mcg PO DAILY [facility] Last Admin: 10/26/17 09:17 Dose: 1,000 mcg Dextrose/Water (Dextrose 50%) 25 gm SLOW IVP PRN PRN PRN Reason: Hypoglycemia Enoxaparin Sodium (Lovenox) 40 mg SC 0900 [facility] Last Admin: 10/26/17 09:18 Dose: 40 mg Famotidine (Pepcid) 20 mg PO DAILY [facility] Last Admin: 10/26/17 09:18 Dose: 20 mg Glucagon (Glucagon) 1 mg IM PRN PRN PRN Reason: Hypoglycemia Guaifenesin/Dextromethorphan (Robitussin Dm) 15 ml PO Q4H PRN PRN Reason: Cough Dextrose/Water (D5w) 1,000 mls @ 0 mls/hr IV .Q0M PRN; As Directed PRN Reason: Hypoglycemia Piperacillin/Tazobactam/ (Dextrose 3.375 gm/ Device) 50 mls @ 50 mls/hr IVPB Q6HR [facility] Vancomycin HCl 1.5 gm/ Sodium (Chloride) 300 mls @ 200 mls/hr IVPB 0100,0900, 1700 [facility] Last Admin: 10/26/17 11:12 Dose: 300 mls Insulin Human Lispro (Humalog) 0 units SC .MODERATE SLIDING SC PRN PRN Reason: Moderate Correctional Scale Miscellaneous Medication (Pharmacy To Dose) 0 each IVPB PRN PRN PRN Reason: Pharmacy to Dose VANCOMYCIN Multivitamins (Theragran) 1 tab PO DAILY [facility] Last Admin: 10/26/17 09:18 Dose: 1 tab Senna (Senokot) 2 tab PO HSPRN PRN PRN Reason: Constipation
--- NOTE | 2017-10-26 12:50 | MRI ---
MRI BRAIN WITHOUT CONTRAST: HISTORY: Left-sided facial droop and left arm weakness. COMPARISON: CT brain 10/25/17. FINDINGS: Corresponding to the CT examination posterior limb left internal capsule is an area of fat signal and diffusion weighted imaging sequence of this same area also has high signal in the ADC indicating a r ight subacute infarction. This area was seen on the MRI of 09/10/17. There is a new area in the right frontal subcortical white matter cortes radiata diffusion restrictio n which is dark on the ADC map indicating infarction. There is also a punctate area of right frontal middle frontal gyrus cortical infarction. On the susceptibility weighted imaging sequence, there are no abnormal areas of hemorrhage. Mild atr ophy. Mild microvascular ischemic changes. There are air fluid levels in both maxillary sinuses. IMPRESSION: 1. Late subacute infarction in the left periventricular white matter posterior limb internal capsule . 2. New acute infarction of the punctate infarction of the right middle frontal gyrus as well as deep white matter. 3. Absent flow void in the right cavernous internal carotid artery indicating thrombosis. POS: [facility]
[2017-10-26] MEDS: Piperacillin-Tazo-Dextrose,Iso 3.375 GM in Premix Bag 1 BAG IVPB SCH ×2 (16:27→20:33)
--- NOTE | 2017-10-26 18:13 | CON ---
DATE OF CONSULTATION: 10/26/2017 CONSULTING PHYSICIAN: Hospitalist Service. IMPRESSION: 1. New right hemispheric stroke. 2. Prior left periventricular stroke. 3. Right internal carotid artery occlusion. 4. Diabetes. 5. Hyperlipidemia. 6. Tobacco and alcohol use. 7. Hypertension. 8. Aspirin and Plavix failure. PLAN: Switch to Aggrenox. HISTORY: Mr. Thompson is a 56-year-old man with multiple medical problems. He came in with complai nts of right-sided weakness and tingling. He has had an improvement in his symptoms since yesterday. MRI of the brain showed some acute small vessel ischemic changes in the right frontal lobe. It als o shows multiple chronic areas of ischemia within the right middle cerebral artery territory, more so than on the left. His symptoms have significantly improved without any complaints of headache, naus ea, dizziness, trouble swallowing, or trouble speaking. PAST MEDICAL HISTORY: As listed above. ALLERGIES: None. SOCIAL HISTORY: As noted. FAMILY HISTORY: Noncontributory. REVIEW OF SYSTEMS: Otherwise, negative. PHYSICAL EXAMINATION: VITAL SIGNS: Stable. He is afebrile. HEENT: Pupils equal and reactive. Conjunctivae clear. Oropharynx clear. NECK: Supple. EXTREMITIES: No cyanosis. NEUROLOGIC: He is alert and cooperative. His speech is fluent and clear. Cranial nerves were inta ct. Motor exam showed good strength in both upper and lower extremities with only minimal decreased hand quality assurance representative on the right. Sensation was intact to light touch. No tremor or dysmetrias present. He c an walk independently. IMAGING DATA: Imaging was reviewed. SUMMARY: Middle aged man with multiple medical problems, who appears to have a right carotid occlusi on and some secondary patchy ischemic change on the right. Fortunately did not have a major deficit result from the occlusion is failed aspirin and Plavix. I would suggest switch over to Aggrenox.
[2017-10-26] MEDS: Atorvastatin Calcium 40 MG TAB PO SCH (20:35)
[2017-10-26] MEDS ORDERED: Atorvastatin Calcium 40 MG TAB PO SCH (21:00)
[2017-10-27] MEDS: Piperacillin-Tazo-Dextrose,Iso 3.375 GM in Premix Bag 1 BAG IVPB SCH ×7 (00:06→21:37)
[2017-10-27] MEDS: Vancomycin HCl 1.5 GM in Sodium Chloride 0.9% 250 ML 300 ML IVPB SCH ×2 (02:07→22:45)
[2017-10-27 08:33] LABS: Vancomycin, Trough 28.8 ug/mL
--- NOTE | 2017-10-27 08:38 | CON ---
DATE OF CONSULTATION: 10/27/2017 CHIEF COMPLAINT: Hand pain. HISTORY OF PRESENT ILLNESS: Mr. Thompson is a 56-year-old male who was admitted to the hospital wit h symptoms of stroke. He has a history of cerebrovascular accident and had recent worsening symptoms of weakness and numbness as well as difficulty speaking on the right side. He presented to the [facility] and has been admitted to the hospital. An MRI has shown multiple chronic areas of i schemia at the middle cerebral artery area. His symptoms have improved now. He denies current compl aints. Orthopedics was consulted for his right hand. He has a history of hand swelling and index fi nger pain over the last one month to 6 weeks. He thinks he began this problem by spraining the hand at work. He is not significantly worsening, but this has been a chronic problem. His swelling is no t increasing. Over 1 year ago, he had some drainage from the second webspace of the hand, but this h as not happened recently. He has had no fever or chills. He denies erythema. He has stiffness of t he index finger. PAST MEDICAL HISTORY: Previous cerebrovascular accident, carotid artery occlusion on the right, diab etes, hyperlipidemia, hypertension. ALLERGIES: None. SOCIAL HISTORY: The patient smokes tobacco. He drinks alcohol occasionally. REVIEW OF SYSTEMS: Positive for hand pain, otherwise negative for 10 point review of systems. IMAGES: X-rays of the hand and finger are reviewed. These show soft tissue swelling of the index fi nger on the right side. There is no evidence of osteomyelitis, no other acute findings except for so ft tissue swelling. LABORATORY DATA: The patient has no elevation of his white blood cell count, it is 6.5 today. PHYSICAL EXAMINATION: GENERAL: Stable. He is alert, he is oriented, sitting upright, in no apparent distress. He is afeb rile. He is talkative. VITAL SIGNS: Temperature 97.4, pulse is 57, respiratory 18, oxygen saturation 94%. HEENT: Normocephalic, atraumatic. RESPIRATORY: Breathing comfortably. ABDOMEN: Soft, nontender, nondistended. MUSCULOSKELETAL: The patient's right hand has swelling and tenderness along the index finger, especi ally at the MCP joint level. He has stiffness of the finger. There is no significant fluctuance. N o erythema, no increased warmth, no drainage. There is a small chronic wound at the second webspace. IMPRESSION: A 56-year-old male with recent cerebrovascular accident with a chronic hand problem sugg estive of cyst accumulation over the flexor tendon versus a chronic infection. PLAN: At this point, I would like to avoid surgical intervention for the patient given his recent CV A. I would like to obtain an MRI of the hand to evaluate this. I think his leading diagnosis would be a cystic mass rather than an abscess. We will follow up on MRI. He could continue antibiotics fo r now until we have a firm diagnosis. We will continue to follow.
[2017-10-27] MEDS: Aspirin 81 mg Enteric Coated Tablet PO SCH (10:07)
[2017-10-27] MEDS: Enoxaparin Sodium 40 MG/0.4 ML SYRINGE SC SCH (10:07)
[2017-10-27] MEDS: Clopidogrel Bisulfate 75 MG TAB PO SCH (10:07)
[2017-10-27] MEDS: Cyanocobalamin (Vitamin B-12) 1,000 MCG TAB PO SCH (10:08)
[2017-10-27] MEDS: Multivit, Therapeutic 1 TAB PO SCH (10:08)
[2017-10-27] MEDS: Famotidine 20 MG TAB PO SCH (10:08)
[2017-10-27] MEDS: Carvedilol 6.25 MG TAB PO SCH ×2 (10:08→17:00)
--- NOTE | 2017-10-27 11:58 | MRI ---
RIGHT HAND MRI WITHOUT IV CONTRAST: HISTORY: A 56-year-old male with focal right hand swelling and mass at the base of the index finger. The patient was initially scheduled for a with and without contrast study, although the patient could not tolerate any more of the examination so that the postcontrast imaging was not able to be perform ed. Multiplanar, multisequence MRI examination of the right hand and index finger. There is some focal s oft tissue swelling on the radial side of the index finger at the level of the proximal phalanx with an associated skin defect and probable small metallic susceptibility artifact. There is no evidence for an identifiable drainable abscess. There is no abnormal marrow signal to suggest acute osteomyel itis. There is some abnormal fluid density within the index finger flexor digitorum tendon sheath ex tending from the middle phalanx proximally to the level of the wrist. This tendon sheath fluid appea rs to be fairly simple fluid without significant tendon sheath wall thickening. Favor this to be les s likely to represent some type of infectious tenosynovitis, although that possibility cannot be tota lly excluded. There is noted to be a very small focus of fluid density extending to the palmar surfa ce from the tendon sheath at the level of the base of the proximal phalanx, possibly a small defect o r focal area of weakness of the tendon sheath, but this does not appear to be associated with any oth er fluid collection or abnormal surrounding soft tissue changes and is not associated directly with t he area of clinical concern which is on the radial side of the finger. IMPRESSION: Some focal soft tissue fullness and swelling accounting for the palpable finding with a small metalli c density and probable small skin defect. No evidence for a drainable abscess. No osteomyelitis. E vidence for tenosynovitis involving the flexor digitorum tendon sheath. POS: [facility]
--- NOTE | 2017-10-27 12:16 | PDOC.PN ---
- Subjective Encounter Start Date: 10/27/17 Encounter Start Time: 09:30 Subjective: no new complaints, is amb in room - Objective Resuscitation Status: Resuscitation Status FULL:Full Resuscitation MAR Reviewed: Yes Vital Signs & Weight: Vital Signs (12 hours) Temp Pulse Resp BP BP Pulse Ox 10/27/17 11:20 98.4 F 61 18 129/76 95 10/27/17 10:08 167/74 H 10/27/17 07:15 97.4 F L 57 L 18 94 L 10/27/17 04:00 167/74 H 10/27/17 03:47 97.3 F L 90 18 167/74 H 95 Weight Weight 218 lb I&O: 10/26/17 10/27/17 10/28/17 06:59 06:59 06:59 Intake Total 520 1470 Output Total 1000 Balance 520 470 Result Diagrams: 10/26/17 04:03 10/26/17 04:03 Additional Labs: Accuchecks 10/27/17 10/27/17 10/26/17 10:42 05:52 21:52 POC Glucose 103 133 H 156 H 10/26/17 17:09 POC Glucose 139 H Phys Exam - Physical Examination HEENT: PERRLA, moist MMs Neck: no JVD, supple Respiratory: no wheezing, no rales Cardiovascular: RRR, no significant murmur Gastrointestinal: soft, non-tender, positive bowel sounds Musculoskeletal: no edema, pulses present Neurological: non-focal, moves all 4 limbs Psychiatric: A&O x 3 Dx/Plan (1) Acute CVA (cerebrovascular accident) Code(s): I63.9 - CEREBRAL INFARCTION, UNSPECIFIED Status: Acute Comment: b/ l cva, prior left hemiparesis, is able to ambulate, has occluded right carotids (2) Abscess of right index finger Code(s): L02.511 - CUTANEOUS ABSCESS OF RIGHT HAND Status: Acute Comment: tenosynovitis, cellulitis (3) Dyslipidemia Code(s): E78.5 - HYPERLIPIDEMIA, UNSPECIFIED Status: Chronic (4) Tobacco abuse Code(s): Z72.0 - TOBACCO USE Status: Chronic (5) Obesity (BMI 30.0-34.9) Code(s): E66.9 - OBESITY, UNSPECIFIED Status: Chronic (6) Alcohol abuse Code(s): F10.10 - ALCOHOL ABUSE, UNCOMPLICATED Status: Chronic (7) Hypertension Code(s): I10 - ESSENTIAL (PRIMARY) HYPERTENSION Status: Chronic Qualifiers: Hypertension type: essential hypertension Qualified Code(s): I10 - Essential (primary) hypertension Comment: stable. - Plan MRI brain and hand reviewed -: finger tenosynovitis per ortho advice, ?foreign body -: is on aggrenox and continue plavix in view of thrombus and occlusion of Rig -: -ht ICA, to amb as tolerated -: is on zosyn and vanc for the finger, may switch per ortho advice * . Review of Systems - Medications/Allergies Allergies/Adverse Reactions: Allergies Allergy/AdvReac Type Severity Reaction Status Date / Time No Known Drug Allergies Allergy Verified 10/25/17 20:52 Medications: Current Medications Acetaminophen (Tylenol) 650 mg PO Q4H PRN PRN Reason: Headache/Fever or Pain Atorvastatin Calcium (Lipitor) 40 mg PO HS [facility] Last Admin: 10/26/17 20:35 Dose: 40 mg Carvedilol (Coreg) 6.25 mg PO BID-[facility] Last Admin: 10/27/17 10:08 Dose: 6.25 mg Clopidogrel Bisulfate (Plavix) 75 mg PO DAILY [facility] Last Admin: 10/27/17 10:07 Dose: 75 mg Cyanocobalamin (Vitamin B-12) 1,000 mcg PO DAILY [facility] Last Admin: 10/27/17 10:08 Dose: 1,000 mcg Dextrose/Water (Dextrose 50%) 25 gm SLOW IVP PRN PRN PRN Reason: Hypoglycemia Dipyridamole/Aspirin (Aggrenox) 1 cap PO BID [facility] Enoxaparin Sodium (Lovenox) 40 mg SC 0900 [facility] Last Admin: 10/27/17 10:07 Dose: 40 mg Famotidine (Pepcid) 20 mg PO DAILY [facility] Last Admin: 10/27/17 10:08 Dose: 20 mg Glucagon (Glucagon) 1 mg IM PRN PRN PRN Reason: Hypoglycemia Guaifenesin/Dextromethorphan (Robitussin Dm) 15 ml PO Q4H PRN PRN Reason: Cough Dextrose/Water (D5w) 1,000 mls @ 0 mls/hr IV .Q0M PRN; As Directed PRN Reason: Hypoglycemia Piperacillin/Tazobactam/ (Dextrose 3.375 gm/ Device) 50 mls @ 50 mls/hr IVPB 0300,0900,1500,2100 [facility] Last Admin: 10/27/17 10:09 Dose: 50 mls Vancomycin HCl 1.5 gm/ Sodium (Chloride) 300 mls @ 200 mls/hr IVPB Q12HR [facility] Insulin Human Lispro (Humalog) 0 units SC .MODERATE SLIDING SC PRN PRN Reason: Moderate Correctional Scale Miscellaneous Medication (Pharmacy To Dose) 0 each IVPB PRN PRN PRN Reason: Pharmacy to Dose VANCOMYCIN Multivitamins (Theragran) 1 tab PO DAILY [facility] Last Admin: 10/27/17 10:08 Dose: 1 tab Senna (Senokot) 2 tab PO HSPRN PRN PRN Reason: Constipation
[2017-10-27 12:22] VITALS: BMI 35.2
[2017-10-27] MEDS: Atorvastatin Calcium 40 MG TAB PO SCH (21:37)
[2017-10-27] MEDS: Aggrenox 200-25mg CAP PO SCH (21:37)
[2017-10-28] MEDS: Piperacillin-Tazo-Dextrose,Iso 3.375 GM in Premix Bag 1 BAG IVPB SCH ×2 (04:35→09:02)
[2017-10-28] MEDS: Clopidogrel Bisulfate 75 MG TAB PO SCH (09:00)
[2017-10-28] MEDS: Cyanocobalamin (Vitamin B-12) 1,000 MCG TAB PO SCH (09:00)
[2017-10-28] MEDS: Multivit, Therapeutic 1 TAB PO SCH (09:01)
[2017-10-28] MEDS: Famotidine 20 MG TAB PO SCH (09:01)
[2017-10-28] MEDS: Aggrenox 200-25mg CAP PO SCH (09:01)
[2017-10-28] MEDS: Carvedilol 6.25 MG TAB PO SCH (09:01)
[2017-10-28] MEDS: Enoxaparin Sodium 40 MG/0.4 ML SYRINGE SC SCH (09:02)
[2017-10-28] MEDS: Vancomycin HCl 1.5 GM in Sodium Chloride 0.9% 250 ML 300 ML IVPB SCH (09:43)
--- NOTE | 2017-10-28 10:44 | PDOC.PN ---
- Subjective Encounter Start Date: 10/28/17 Encounter Start Time: 10:42 Mr. Thompson was seen today in follow-up of acute CVA. He does not have any complaints. He says his arm is a little better, but still weak. He has no new complaints. - Objective Resuscitation Status: Resuscitation Status FULL:Full Resuscitation MAR Reviewed: Yes Vital Signs & Weight: Vital Signs (12 hours) Temp Pulse Resp BP BP Pulse Ox 10/28/17 08:00 98 F 55 L 18 142/79 H 96 10/28/17 07:30 98 F 55 L 18 142/79 H 96 10/28/17 04:00 125/62 10/28/17 03:17 97.9 F 60 18 125/62 97 10/28/17 00:30 138/60 10/27/17 23:10 98.5 F 58 L 20 138/60 96 Weight Admit Weight 215 lb 3.2 oz Weight 212 lb 14.4 oz I&O: 10/27/17 10/28/17 10/29/17 06:59 06:59 06:59 Intake Total 1470 2180 480 Output Total 1000 450 Balance 470 1730 480 Result Diagrams: 10/26/17 04:03 10/26/17 04:03 Additional Labs: Accuchecks 10/28/17 10/27/17 10/27/17 05:15 21:08 16:24 POC Glucose 102 98 153 H 10/27/17 10:42 POC Glucose 103 Phys Exam - Physical Examination HEENT: PERRLA Respiratory: no wheezing, no rales, no rhonchi, clear to auscultation bilateral Cardiovascular: RRR, no significant murmur Gastrointestinal: soft, non-tender, positive bowel sounds Musculoskeletal: no edema + mild weakness in the left upper extremity no lower extremity weakness Dx/Plan (1) Acute CVA (cerebrovascular accident) Code(s): I63.9 - CEREBRAL INFARCTION, UNSPECIFIED Status: Acute Comment: b/ l cva, prior left hemiparesis, is able to ambulate, has occluded right carotids (2) Dyslipidemia Code(s): E78.5 - HYPERLIPIDEMIA, UNSPECIFIED Status: Chronic (3) Abscess of right index finger Code(s): L02.511 - CUTANEOUS ABSCESS OF RIGHT HAND Status: Acute Comment: tenosynovitis, cellulitis (4) Dyslipidemia Code(s): E78.5 - HYPERLIPIDEMIA, UNSPECIFIED Status: Chronic (5) Tobacco abuse Code(s): Z72.0 - TOBACCO USE Status: Chronic (6) Alcohol abuse Code(s): F10.10 - ALCOHOL ABUSE, UNCOMPLICATED Status: Chronic (7) Hypertension Code(s): I10 - ESSENTIAL (PRIMARY) HYPERTENSION Status: Chronic Qualifiers: Hypertension type: essential hypertension Qualified Code(s): I10 - Essential (primary) hypertension Comment: stable. (8) Macrocytosis without anemia Code(s): D75.89 - OTHER SPECIFIED DISEASES OF BLOOD AND BLOOD-FORMING ORGANS Status: Chronic - Plan * Acute CVA- patient has minimal deficits, with weakness in the left upper extremity * Will need clarification from Neurology on which antiplatelet medication he should be treated * HTN- blood pressure is stable * Elevated LDL- continue Lipitor * Discussed tobacco, and alcohol cessation * Hopefully home after Neurology evaluation.
[2017-10-28 11:59] VITALS: BP 126/70; TEMP 97.5
--- NOTE | 2017-10-28 19:01 | DIS ---
DATE OF ADMISSION: 10/25/2017 DATE OF DISCHARGE: 10/28/2017 DISCHARGE DISPOSITION: Home. PRIMARY DISCHARGE DIAGNOSES: 1. Acute cerebrovascular accident. 2. Hypertension. 3. Dyslipidemia. 4. Alcohol abuse. 5. Tobacco abuse. DISCHARGE MEDICATIONS: Include Aggrenox 1 tablet twice a day, Lipitor 40 mg at bedtime, Augmentin 87 5 mg twice a day, Carvedilol 25 mg twice a day, vitamin B12 of 1000 mcg daily, metformin 1000 mg twic e daily, Theragran M once daily. PROCEDURES DONE DURING ADMISSION: The patient had an echocardiogram which demonstrated an ejection f raction of 55-60%, 1 out of 3 diastolic dysfunction. MRI of the brain showed a late subacute infarct in the left periventricular white matter posterior limb of internal capsule. There is also a new in farct in the punctate of the right middle frontal gyrus as well as a deep white matter. The patient had an MRI of the upper extremity showing some focal soft tissue fullness and swelling accounting for the palpable finding with a small metallic density in probable small skin defect. There was no evid ence of a drainable abscess. There was no evidence of osteomyelitis. There was, however, evidence o f tenosynovitis involving the flexor digitorum tendon sheath. CODE STATUS: FULL CODE. ALLERGIES: No known drug allergies. HOSPITAL COURSE: Mr. Thompson is a pleasant 56-year-old gentleman who was admitted after he experie nced some left-sided weakness. He also noted some pain on the index finger of the right hand. He wa s found to have an acute cerebral infarct. He was seen by Neurology. It was recommended that he be switched from aspirin and Plavix to Aggrenox as this represented an aspirin and Plavix failure. He w as also counseled on the need for smoking cessation as well as alcohol cessation. He also was though t to have an abscess on the index finger of the right hand. However, MRI ruled this out and there wa s no need for any surgical intervention and he will be discharged home on oral antibiotics and this c an be followed up in the outpatient setting.
--- NOTE | 2017-11-25 14:35 | EKG ---
Test Reason : Blood Pressure : / mmHG Vent. Rate : 091 BPM Atrial Rate : 091 BPM P-R Int : 168 ms QRS Dur : 134 ms QT Int : 414 ms P-R-T Axes : 034 -37 033 degrees QTc Int : 509 ms Sinus rhythm with Premature atrial complexes Left axis deviation Right bundle branch block Possible Inferior infarct , age undetermined Abnormal ECG Confirmed by LEEANNA MATHIS DO ([id number]), senior technical editor MIKI DRAPER ([id number]) on 11/25/2017 2:35:06 PM Referred By: IRIS Confirmed By:LEEANNA MATHIS DO
== END 2017-10-28 13:57 | disposition home or self-care (01) | DRG 65 ==
LOC: ERS 16:28 → 2SE 18:24
PROVIDERS: ADMIT Internal Medicine; ATTEND Internal Medicine
DX: I63.031 Cerebral infarction due to thrombosis of right carotid artery (principal); I69.354 Hemiplegia and hemiparesis following cerebral infarction affecting left non-dominant side; E11.9 Type 2 diabetes mellitus without complications; E78.5 Hyperlipidemia, unspecified; D75.89 Other specified diseases of blood and blood-forming organs; E66.9 Obesity, unspecified; F10.10 Alcohol abuse, uncomplicated; I10 Essential (primary) hypertension; F17.210 Nicotine dependence, cigarettes, uncomplicated; M65.841 Other synovitis and tenosynovitis, right hand; L03.011 Cellulitis of right finger
CPT/HCPCS: 36415; 36416; 70450; 70551; 80048; 80053; 80061; 80202; 81003; 82553; 84484; 85025; 85610; 85730; 93005; 93306; 94760; G8978-GP-CI; G8979-GP-CI; G8980-GP-CI; G8987-GO-CH; G8988-GO-CH; G8989-GO-CH; G8996-GN-CH; G8997-GN-CH; J1650; J1956; J2543; J3370; J7050

== ENCOUNTER 2017-11-12 15:46 | Inpatient (IN) | payer OTHER, SELFPAY ==
[2017-11-12] MEDS ORDERED: Multivitamins, Adult 10 ML, Thiamine HCl 100 MG, Folic Acid 1 MG in Dextrose 5 %-0.45 %... IV SCH ×4 (16:15)
[2017-11-12 16:20] LABS: Bilirubin Negative (Negative); Blood, Urine Negative (Negative); Clarity CLEAR (Clear); Glucose, Urine (Dipstick) 250 mg/dL (Negative); Leukocyte Negative (Negative); Nitrite Negative (Negative); Protein, Urine (Dipstick) Negative (Neg-Trace); Specific Gravity, Urine 1.007 (1.002-1.036); Urobilinogen 0.2 mg/dL (0.2-1.0); pH, Urine 5.5 (5.0-9.0)
[2017-11-12 16:33] LABS: Amphetamine Not Detected (NotDetected); Barbiturates Screen Not Detected (NotDetected); Benzodiazepine Screen Not Detected (NotDetected); Cocaine Metabolite Screen Not Detected (NotDetected); Medtox Control Line Valid? VALID (VALID); Medtox Reader # READER 1; Methadone Not Detected (NotDetected); Methamphetamine Not Detected (NotDetected); Opiate Screen Not Detected (NotDetected); Oxycodone Screen Not Detected (NotDetected); Phencyclidine (PCP) Not Detected (NotDetected); THC/Cannabinoid Screen Not Detected (NotDetected); Tricyclic Screen Not Detected (NotDetected)
[2017-11-12 16:38] LABS: #Eosinphils 0.1 thou/uL (0.0-0.7); #Monocytes 0.6 thou/uL (0.11-0.59); #Neutrophils 4.3 thou/uL (1.40-6.50); %Basophils 0.6 % (0.0-1.0); %Eosinophils 1.1 % (0.0-10.0); %Lymphocytes 28.1 % (21.0-51.0); %Monocytes 8.5 % (0.0-10.0); %Neutrophils 61.7 % (42.0-75.0); Hemoglobin 17.5 g/dL (14.0-18.0); Mean Corpuscular HGB CONC 33.1 g/dL (32.0-36.0); Mean Corpuscular Hemoglobin 33.2 pg (27.0-31.0); Mean Platelet Volume 6.5 fL (7.4-10.4); Platelet Count 263 thou/uL (130-400); RBC Distribution Width 11.6 % (11.5-14.5); Red Blood Cell (RBC) Count 5.28 mill/uL (4.70-6.10)
[2017-11-12 16:47] LABS: INR-International Normal Ratio 0.9; PTT 30.9 SEC (22.9-36.1); Prothrombin Time 12.6 SEC (12.0-14.7)
--- NOTE | 2017-11-12 16:59 | RAD ---
PORTABLE CHEST: History: Chest pain. Comparison: 09-09-17 FINDINGS: Lungs appear clear. Mild cardiomegaly again noted. Vascular markings are upper normal with mild engor gement. No effusion or focal infiltrate. POS: [facility]
--- NOTE | 2017-11-12 16:59 | CT ---
CT HEAD WITHOUT CONTRAST: Technique: Multiple axial tomograms were obtained through the head without IV enhancement. History: Stroke symptoms. History of recent cerebral infarction. Hypertension. Diabetes. Comparison: MRI brain 10-26-17. That exam revealed subacute infarcts in the right frontal lobe, subcort ical and cortical region, along with a subacute infarct in the left basal ganglia region. Also compar ed to recent CT of 10-25-17. FINDINGS: Lucency in the left basal ganglia is stable from the recent CT. There is also subcortical lucency see n in the frontal lobe and right parietal lobe which appear stable from the prior CT. These areas show ed gliosis on the recent MRI and would be consistent with ischemic change. No evidence of acute cortical infarct by CT. No hemorrhage or mass. IMPRESSION: Head CT appears stable from the recent exam of 10-25-17. POS: [facility]
[2017-11-12 17:00] LABS: ALT (SGPT) 26 U/L (8-55); AST (SGOT) 13 U/L (5-34); Albumin 4.3 g/dL (3.5-5.0); Alkaline Phosphatase 87 U/L (40-150); Anion Gap 21 mmol/L (10-20); BUN (Urea Nitrogen) 13 mg/dL (8.4-25.7); Bilirubin, Total 0.3 mg/dL (0.2-1.2); Calc. Creatinine Clearance 0 mL/min (70-130); Calcium 9.7 mg/dL (7.8-10.44); Carbon Dioxide 19 mmol/L (22-29); Chloride 103 mmol/L (98-107); Estimated GFR-MDRD 85; Globulin 3.4 g/dL (2.4-3.5); Glucose 138 mg/dL (70-105); Lipase 46 U/L (8-78); Magnesium 2.1 mg/dL (1.6-2.6); Potassium 3.5 mmol/L (3.5-5.1); Protein, Total 7.7 g/dL (6.0-8.3); Sodium 139 mmol/L (136-145)
[2017-11-12] MEDS ORDERED: ISOVUE-370 76%-LOCM 1 ML ONE (17:01)
[2017-11-12 17:02] LABS: Acetaminophen Less than 6.0 mcg/mL (10.0-30.0); Alcohol 170 mg/dL (Less than 10); Salicylate Less than 8.0 mg/dL (15.0-30.0)
--- NOTE | 2017-11-12 17:03 | CT ---
CT AORTOGRAM OF CHEST AND ABDOMEN WITH IV CONTRAST: Technique: Multiple axial tomograms were obtained from the aortic arch through the aortic bifurcation with arterial phase enhancement with multiplanar reconstruction and 3D post processing. History: Question dissection. Hypertension. FINDINGS: Thoracic and abdominal aorta shows normal caliber. There is no evidence of dissection. There is mild arthrosclerotic change in the lower abdominal aorta. Major artery branches including celiac artery, s uperior mesenteric artery, and renal arteries are patent without evidence of significant stenosis. The pulmonary arteries are well opacified and there is no evidence of proximal pulmonary embolus. Lungs show no evidence of focal infiltrate or effusion. Liver, spleen, pancreas, adrenal glands and k idneys are unremarkable. Bowel loops appear unremarkable. IMPRESSION: 1. No evidence of aortic dissection. POS: [facility]
[2017-11-12 17:04] LABS: CKMB 0.7 ng/mL (0-6.6); Troponin I Less than 0.010 ng/mL (< 0.028)
[2017-11-12] MEDS ORDERED: Morphine 4 MG/ML Carpuject ONE (17:38)
[2017-11-12 19:48] VITALS: BMI 35.0
[2017-11-12 20:34] LABS: Lactic Acid 1.6 mmol/L (0.5-2.2)
[2017-11-12] MEDS ORDERED: Dextrose 5% in Water 1,000 ML IV PRN (20:48)
[2017-11-12] MEDS ORDERED: Guaifenesin DM 100-10/5 ML UDCUP PO PRN (20:48)
[2017-11-12] MEDS ORDERED: Dextrose 50% Abboject 50 ML SYRINGE SLOW IVP PRN (20:48)
[2017-11-12] MEDS ORDERED: Senokot 8.6 MG TAB PO PRN (20:48)
[2017-11-12] MEDS ORDERED: Acetaminophen 325 MG TAB PO PRN (20:48)
[2017-11-12] MEDS: Aggrenox 200-25mg CAP PO SCH (22:19)
[2017-11-12] MEDS: Atorvastatin Calcium 40 MG TAB PO SCH (22:19)
[2017-11-12] MEDS: Famotidine 20 MG TAB PO SCH (22:19)
[2017-11-12] MEDS: Nicotine 21 MG PATCH TD SCH (22:20)
[2017-11-12] MEDS: Sodium Chloride 0.9% 1,000 ML IV SCH (22:20)
--- NOTE | 2017-11-12 23:27 | HP ---
REASON FOR ADMISSION: Left-sided weakness. HISTORY OF PRESENT ILLNESS: The patient gives history of left lower extremity being very numb. He c ould not get into his truck. This happened around 5:30 in the morning. Yesterday at lunch, he felt his left upper extremity to be numb off and on and he was not able to use his hand for eating. Mr. Fortino xiong and has prior history of left hemiparesis and states that his sensation has gotten worse at this time. He also mentions that he drank 3 margaritas this morning. He has no complaints of chest pain, palpitations, PND or orthopnea. The patient also continues to smoke half a pack per day. PAST MEDICAL AND SURGICAL HISTORY: He was recently discharged from the hospital with acute CVA on th e left side. There was also a new infarct on the right side as well. He has known history of right carotid artery or occlusion, hypertension, dyslipidemia, alcohol abuse, tobacco abuse, diabetes melli tus type 2, history of necrotizing fasciitis in the groin. PERSONAL HISTORY: Smokes half pack a day, drinks around 3-6 beers and margaritas occasionally. Does not abuse drugs. He lives alone. FAMILY HISTORY: Mother in her sleep at the age of 54 years. She was suspected to have heart di sease. Father of colon cancer in his 70s. ALLERGIES: No known drug allergies. CURRENT MEDICATIONS: Patient was on Aggrenox 1 capsule twice daily, Lipitor 40 mg p.o. at bedtime, C oreg 25 mg twice daily, vitamin B12 of 1000 mcg p.o. daily, metformin 1000 mg p.o. twice daily, multi vitamin 1 tab once daily. REVIEW OF SYSTEMS: The following complete review of systems was negative, unless otherwise mentioned in the HPI or below: Constitutional: Weight loss or gain, ability to conduct usual activities. Sk in: Rash, itching. Eyes: Double vision, pain. ENT/Mouth: Nose bleeding, neck stiffness, pain, te nderness. Cardiovascular: Palpitations, dyspnea on exertion, orthopnea. Respiratory: Shortness of breath, wheezing, cough, hemoptysis, fever or night sweats. Gastrointestinal: Poor appetite, abdom inal pain, heartburn, nausea, vomiting, constipation, or diarrhea. Genitourinary: Urgency, frequenc y, dysuria, nocturia. Musculoskeletal: Pain, swelling. Neurologic/Psychiatric: Anxiety, depressio n. Allergy/Immunologic: Skin rash, bleeding tendency. PHYSICAL EXAMINATION: GENERAL: The patient is a 56-year-old male who is currently not in any acute distress. VITAL SIGNS: Blood pressure 136/84, pulse 88 per minute, respiratory rate 18 per minute, temperature 97.6 degrees Fahrenheit, saturating 93% on room air. NECK: Supple, no elevated JVD. HEENT: Extraocular muscles intact. Pupils are reacting to light. Oral cavity, mucous membranes are moist. No exudates or congestion. The patient has very minimal if any teeth left in his mouth. CARDIOVASCULAR: S1, S2 heard. Regular rhythm. RESPIRATORY: Air entry 1+ bilateral. Scattered rhonchi plus no rales or wheezes. ABDOMEN: Soft, bowel sounds heard. No tenderness, rigidity or guarding. EXTREMITIES: No peripheral edema or calf tenderness. VASCULAR SYSTEM: Peripheral pulses 1+ bilateral. No ischemic ulcerations or gangrene. CENTRAL NERVOUS SYSTEM: Cranial nerves are grossly intact. Patient is awake, alert, and oriented we . Motor: Please note patient is left handed. His strength in lower extremity is 3/5, left upper extremity is 4/5. Reflexes are 2+ bilateral. Babinski is downgoing. Cerebellar signs are grossly i ntact. Gait was not tested. PSYCHIATRIC: The patient's mood is euthymic. No hallucinations or delusions. LABORATORY AND X-RAY FINDINGS: White count 7, H&H 17 and 52, platelet count is 263, MCV is 100 with 61% neutrophils. PT, INR, PTT within normal limits. Serum bicarbonate 19, BUN 13, creatinine 0.9, g lucose 138. Lactic acid 2.8. Liver enzymes within normal limits. First set of cardiac enzymes were negative. BNP is 29. TSH 1.79. Lipase is 46. Urine drug screen is negative. CT brain is stable when compared to prior CAT scan done on the 3rd of this month. There is lucency in the left basal ga nglia which is stable. There is also subcortical lucency seen in the frontal lobe and right parietal lobe which appears stable. There was no acute infarct seen on the current CAT scan or hemorrhage. CT of the chest and abdomen with IV contrast done showed no evidence of dissection. Chest x-ray done shows no acute cardiopulmonary abnormalities. CLINICAL IMPRESSION AND PLAN: The patient will be admitted to Stroke Unit for left-sided worsening p araesthesias with prior CVA. The patient has a known history of right carotid occlusion. He is nonc ompliant with alcohol usage and tobacco. It is unclear if he is compliant with his medications. We will continue on Aggrenox, Lipitor, Coreg, vitamin B12, metformin for now. He will also be on normal saline at 50 mL per hour to alternate with banana bag. MRI without contrast will be obtained in the morning. Neurology consultation with Dr. Dona Dominguez who is education faculty member, will be done as well.
[2017-11-13 05:49] LABS: #Basophils 0.1 thou/uL (0.0-0.2); #Eosinphils 0.1 thou/uL (0.0-0.7); #Lymphocytes 1.7 thou/uL (1.20-3.40); #Monocytes 0.6 thou/uL (0.11-0.59); #Neutrophils 3.4 thou/uL (1.40-6.50); %Eosinophils 1.5 % (0.0-10.0); %Lymphocytes 28.9 % (21.0-51.0); %Neutrophils 58.6 % (42.0-75.0); Hemoglobin 15.8 g/dL (14.0-18.0); Mean Corpuscular Hemoglobin 34.5 pg (27.0-31.0); Mean Platelet Volume 6.5 fL (7.4-10.4); Platelet Count 248 thou/uL (130-400); RBC Distribution Width 11.7 % (11.5-14.5); Red Blood Cell (RBC) Count 4.59 mill/uL (4.70-6.10); White Blood Cell (WBC) Count 5.7 thou/uL (4.8-10.8)
[2017-11-13 06:06] LABS: Anion Gap 14 mmol/L (10-20); BUN (Urea Nitrogen) 11 mg/dL (8.4-25.7); Calc. Creatinine Clearance 142 mL/min (70-130); Calcium 8.6 mg/dL (7.8-10.44); Carbon Dioxide 23 mmol/L (22-29); Cardiac Risk 3.8 (Less than 4.5); Chloride 105 mmol/L (98-107); Cholesterol 179 mg/dl (< 200 Desired); Estimated GFR-MDRD Greater than 90; Glucose 101 mg/dL (70-105); HDL Cholesterol 47 mg/dL (>60 Neg Risk); LDL Cholesterol, Calculated 114 mg/dL; Potassium 4.1 mmol/L (3.5-5.1); Sodium 138 mmol/L (136-145); Triglycerides 91 mg/dL (Less than 150)
[2017-11-13] MEDS: Enoxaparin Sodium 40 MG/0.4 ML SYRINGE SC SCH (09:12)
[2017-11-13] MEDS: Aggrenox 200-25mg CAP PO SCH ×2 (09:15→20:18)
[2017-11-13] MEDS: Cyanocobalamin (Vitamin B-12) 1,000 MCG TAB PO SCH (09:16)
[2017-11-13] MEDS: Carvedilol 25 MG TAB PO SCH ×2 (09:16→16:23)
[2017-11-13] MEDS: Famotidine 20 MG TAB PO SCH ×2 (09:16→20:18)
[2017-11-13] MEDS: metFORMIN 500 MG TAB PO SCH ×2 (09:16→16:23)
[2017-11-13] MEDS: Multivit, Therapeutic 1 TAB PO SCH (09:17)
--- NOTE | 2017-11-13 11:06 | PDOC.PN ---
- Subjective Encounter Start Date: 11/13/17 Encounter Start Time: 08:00 Subjective: no new complaints, still has increasing numbness over left side -: is moving all extremities, left is weak - Objective Resuscitation Status: Resuscitation Status FULL:Full Resuscitation MAR Reviewed: Yes Vital Signs & Weight: Vital Signs (12 hours) Temp Pulse Resp BP Pulse Ox 11/13/17 07:54 97.4 F L 76 24 H 185/104 H 98 11/13/17 06:29 97.4 F L 64 16 160/89 H 98 Weight Weight 218 lb 4.8 oz I&O: 11/12/17 11/13/17 11/14/17 06:59 06:59 06:59 Intake Total 980 Output Total 650 Balance 330 Result Diagrams: 11/13/17 05:04 11/13/17 05:04 Additional Labs: Accuchecks 11/13/17 06:07 POC Glucose 132 H Phys Exam - Physical Examination HEENT: PERRLA, moist MMs Neck: no JVD, supple Respiratory: no wheezing, no rales Cardiovascular: RRR, no significant murmur Gastrointestinal: soft, non-tender, positive bowel sounds Musculoskeletal: no edema, pulses present left hemiparesis Dx/Plan (1) Acute CVA (cerebrovascular accident) Code(s): I63.9 - CEREBRAL INFARCTION, UNSPECIFIED Status: Acute Comment: b/ l cva, prior left hemiparesis, is able to ambulate, has occluded right carotids (2) Alcohol abuse Code(s): F10.10 - ALCOHOL ABUSE, UNCOMPLICATED Status: Chronic (3) Dyslipidemia Code(s): E78.5 - HYPERLIPIDEMIA, UNSPECIFIED Status: Chronic (4) Hypertension Code(s): I10 - ESSENTIAL (PRIMARY) HYPERTENSION Status: Chronic Qualifiers: Hypertension type: essential hypertension Comment: stable. (5) Tobacco abuse Code(s): Z72.0 - TOBACCO USE Status: Chronic - Plan await MRI results -: is non compliant with rec cva and occluded right ICA -: await neurology opinion -: PT/OT eval -: is on aggenox and lipitor, ldl is 114 * . Review of Systems - Medications/Allergies Allergies/Adverse Reactions: Allergies Allergy/AdvReac Type Severity Reaction Status Date / Time No Known Drug Allergies Allergy Verified 10/25/17 20:52 Medications: Current Medications Acetaminophen (Tylenol) 650 mg PO Q4H PRN PRN Reason: Headache/Fever or Pain Atorvastatin Calcium (Lipitor) 40 mg PO HS [facility] Last Admin: 11/12/17 22:19 Dose: 40 mg Carvedilol (Coreg) 25 mg PO BID-[facility] Last Admin: 11/13/17 09:16 Dose: 25 mg Cyanocobalamin (Vitamin B-12) 1,000 mcg PO DAILY [facility] Last Admin: 11/13/17 09:16 Dose: 1,000 mcg Dextrose/Water (Dextrose 50%) 25 gm SLOW IVP PRN PRN PRN Reason: Hypoglycemia Dipyridamole/Aspirin (Aggrenox) 1 cap PO BID [facility] Last Admin: 11/13/17 09:15 Dose: 1 cap Enoxaparin Sodium (Lovenox) 40 mg SC 0900 [facility] Last Admin: 11/13/17 09:12 Dose: 40 mg Famotidine (Pepcid) 20 mg PO BID [facility] Last Admin: 11/13/17 09:16 Dose: 20 mg Glucagon (Glucagon) 1 mg IM PRN PRN PRN Reason: Hypoglycemia Guaifenesin/Dextromethorphan (Robitussin Dm) 15 ml PO Q4H PRN PRN Reason: Cough Multivitamins 10 ml/ Folic Acid 1 mg/ Thiamine HCl 100 mg / Dextrose/Sodium Chloride 1,011.2 mls @ 50 mls/hr IV 1600 [facility] Stop: 11/15/17 12:14 Dextrose/Water (D5w) 1,000 mls @ 0 mls/hr IV .Q0M PRN; As Directed PRN Reason: Hypoglycemia Sodium Chloride (Normal Saline 0.9%) 1,000 mls @ 50 mls/hr IV .Q20H [facility] Last Admin: 11/12/17 22:20 Dose: 1,000 mls Metformin HCl (Glucophage) 1,000 mg PO BID-[facility] Last Admin: 11/13/17 09:16 Dose: 1,000 mg Multivitamins (Theragran) 1 tab PO DAILY [facility] Last Admin: 11/13/17 09:17 Dose: 1 tab Nicotine (Nicoderm Patch) 21 mg TD Q24HR [facility] Last Admin: 11/12/17 22:20 Dose: 21 mg Senna (Senokot) 2 tab PO HSPRN PRN PRN Reason: Constipation
--- NOTE | 2017-11-13 11:25 | MRI ---
MRI BRAIN WITHOUT CONTRAST: Date: )11/13/17 Multiplanar, multisequential imaging of brain obtained without IV enhancement. HISTORY: Stroke. Correlation made to recent MRI of brain dated 10/26/17. FINDINGS: Review of diffusion-weighted sequences again shows a focus of restricted diffusion in the left perive ntricular white matter which extends inferiorly into the peripheral left thalamus. This was present p reviously, although it continues to show restricted diffusion. A focal area of restricted diffusion in the subcortical region of the right frontal lobe was also debra cribed previously and again seen. There are at least two new foci of restricted diffusion now seen in the deep white matter of the righ t frontal lobe today when compared to the prior study. These tiny lacunar infarcts on the right are c onsistent with new watershed infarcts due to the right carotid stenosis which was described on the pr ior study. FLAIR sequence again shows chronic ischemic white matter changes bilaterally, more severe on the righ t. There continues to be loss of flow-void in the right intracranial internal carotid artery, which w ould explain these deep watershed infarcts in the right cerebral hemisphere. No other interval change noted. IMPRESSION: There are deep lacunar infarcts seen bilaterally. These are more numerous on the right and would be c onsistent with deep watershed infarcts secondary to the right carotid occlusion, which has been previ ously described, POS: [facility]I
[2017-11-13] MEDS: Sodium Chloride 0.9% 1,000 ML IV SCH (15:07)
[2017-11-13] MEDS: Multivitamins, Adult 10 ML, Folic Acid 1 MG, Thiamine HCl 100 MG in Dextrose 5 %-0.45 %... IV SCH ×4 (15:07)
[2017-11-13] MEDS: Nicotine 21 MG PATCH TD SCH (20:18)
[2017-11-13] MEDS: Atorvastatin Calcium 40 MG TAB PO SCH (20:18)
--- NOTE | 2017-11-13 20:50 | CON ---
DATE OF CONSULTATION: 11/13/2017 REFERRING PROVIDER: Gladys River M.D. REASON FOR CONSULTATION: Worsening left-sided weakness. HISTORY OF PRESENT ILLNESS: Mr. Thompson is a pleasant 56-year-old male who has been concerned for evaluation of worsening left-sided weakness. History is obtained from patient and his medical chart. Patient reports that he has had stroke about one and half month ago which resulted in left-sided numbness and weakness. He was discharged home and had presented again about 3 weeks ago with worsening left-sided weakness and at that time, he was discharged again and presented this time again with worsening left-sided weakness. He reports that he is having increasing difficulty with moving his left lower extremity. He is also having more numbness on the left lower extremity. He also has noted some worsening in the left upper extremity strength as well as numbness in the left upper extremity; however, the left lower extremity is much worse than the left upper extremity. His son also reports that he has been having increasing slurred speech. He denies any headache, vision changes, chest pain, palpitation, nausea, vomiting, lightheadedness or dizziness. PAST MEDICAL HISTORY: Significant for hypertension, hyperlipidemia, alcohol abuse, tobacco abuse, diabetes, history of necrotizing fasciitis in the groin, and recent stroke. PAST SURGICAL HISTORY: None significant. SOCIAL HISTORY: He smokes half pack a day. He drinks about 3-6 beers and margaritas. He denies illicit drug use. He lives alone. FAMILY HISTORY: Noncontributory. CURRENT MEDICATIONS: Please review MAR. ALLERGIES: No known drug allergies. REVIEW OF SYSTEMS: As mentioned above in the HPI, otherwise negative. PHYSICAL EXAMINATION: VITAL SIGNS: Blood pressure of 151/91, pulse of 62, temperature of 97.9, respirations of 22, O2 sats 96% on room air. GENERAL: Well-developed, well-nourished male in no apparent distress. RESPIRATORY: Clear to auscultation bilaterally. CARDIOVASCULAR: Regular rate and rhythm. NEUROLOGIC: Mental status: The patient is awake, alert, oriented x3. Speech and language: Fluent speech. Cranial nerves: Pupils are 3 mm and reactive. Visual hernandez are intact. External muscles are intact. No nystagmus is noted. Face is symmetric. Tongue and uvula midline. Motor exam showed decreased tone in the left upper and left lower extremity. He has left upper extremity is 4/5 strength, left lower extremity is 2-3/5 in strength. He has a pronator drift present on the left upper extremity. Sensory: Sensation appears intact. Deep tendon reflexes 1+ to 2+ reflexes in both upper and lower extremities. Babinski: Plantar responses extensor on the left and flexion on the right. Coordination intact to [id number] and finger tapping bilaterally. LABORATORY DATA: Reviewed, which included CBC, CMP, urinalysis, and urine drug screen with a plasma alcohol level which is significant for glucose of 138. Lipid profile showed total cholesterol of 179, LDL of 114, HDL of 47, triglycerides of 91. Urine drug screen was negative. Plasma alcohol level was 170, otherwise unremarkable. IMAGING STUDIES: MRI brain without contrast was reviewed which showed subacute ischemic infarct involving the watershed distribution of stroke. At this time, I will recommend continuing current medical management. I would recommend maintaining his blood pressure 120-140 systolic. Continue PT, OT, Speech Therapy. He will need inpatient rehabilitation. We would recommend continue on current antiplatelet agent with Aggrenox 1 tab b.i.d. Continue supportive care. MTDD
[2017-11-14] MEDS: Enoxaparin Sodium 40 MG/0.4 ML SYRINGE SC SCH (09:25)
[2017-11-14] MEDS: metFORMIN 500 MG TAB PO SCH ×2 (09:25→17:00)
[2017-11-14] MEDS: Aggrenox 200-25mg CAP PO SCH ×2 (09:26→20:50)
[2017-11-14] MEDS: Famotidine 20 MG TAB PO SCH ×2 (09:26→20:50)
[2017-11-14] MEDS: Cyanocobalamin (Vitamin B-12) 1,000 MCG TAB PO SCH (09:27)
[2017-11-14] MEDS: Multivit, Therapeutic 1 TAB PO SCH (09:27)
[2017-11-14] MEDS: Carvedilol 25 MG TAB PO SCH ×2 (09:27→17:00)
--- NOTE | 2017-11-14 12:57 | PDOC.PN ---
- Subjective Encounter Start Date: 11/14/17 Encounter Start Time: 08:00 Subjective: no new weakness -: has amb around 40ft -: still has left side weakness - Objective Resuscitation Status: Resuscitation Status FULL:Full Resuscitation MAR Reviewed: Yes Vital Signs & Weight: Vital Signs (12 hours) Temp Pulse Pulse Resp BP BP Pulse Ox 11/14/17 12:00 97.4 F L 65 14 165/94 H 97 11/14/17 08:45 97.5 F L 58 L 18 11/14/17 08:12 65 164/94 H 11/14/17 07:08 97.5 F L 58 L 18 176/95 H 98 11/14/17 03:27 97.4 F L 60 18 150/94 H 96 Weight Weight 215 lb 12.8 oz I&O: 11/13/17 11/14/17 11/15/17 06:59 06:59 06:59 Intake Total 980 2125 Output Total 650 1950 Balance 330 175 Result Diagrams: 11/13/17 05:04 11/13/17 05:04 Additional Labs: Accuchecks 11/14/17 11/14/17 11/13/17 10:37 05:26 20:55 POC Glucose 127 H 119 H 111 H 11/13/17 17:12 POC Glucose 96 Phys Exam - Physical Examination HEENT: PERRLA, moist MMs Neck: no JVD, supple Respiratory: no wheezing, no rales Cardiovascular: RRR, no significant murmur Gastrointestinal: soft, non-tender, positive bowel sounds Musculoskeletal: no edema, pulses present Neurological: non-focal, moves all 4 limbs left LE strength is 3/5, left UE strength is 4/5 Psychiatric: A&O x 3 Dx/Plan (1) Acute CVA (cerebrovascular accident) Code(s): I63.9 - CEREBRAL INFARCTION, UNSPECIFIED Status: Acute Comment: b/ l cva, prior left hemiparesis, is able to ambulate, has occluded right carotids (2) Alcohol abuse Code(s): F10.10 - ALCOHOL ABUSE, UNCOMPLICATED Status: Chronic (3) Dyslipidemia Code(s): E78.5 - HYPERLIPIDEMIA, UNSPECIFIED Status: Chronic (4) Hypertension Code(s): I10 - ESSENTIAL (PRIMARY) HYPERTENSION Status: Chronic Qualifiers: Hypertension type: essential hypertension Comment: stable. (5) Tobacco abuse Code(s): Z72.0 - TOBACCO USE Status: Chronic - Plan Pt has chronic complete occlusion of right carotids -: He needs to apply for medicaid as he will be disabled with risk for new str -: -okes over left half of his body -: awaiting rehab eval -: on aggenox and lipitor, coreg. Oral thiamine and folic acid * . Review of Systems - Medications/Allergies Allergies/Adverse Reactions: Allergies Allergy/AdvReac Type Severity Reaction Status Date / Time No Known Drug Allergies Allergy Verified 10/25/17 20:52 Medications: Current Medications Acetaminophen (Tylenol) 650 mg PO Q4H PRN PRN Reason: Headache/Fever or Pain Last Admin: 11/14/17 06:13 Dose: 650 mg Atorvastatin Calcium (Lipitor) 40 mg PO HS [facility] Last Admin: 11/13/17 20:18 Dose: 40 mg Carvedilol (Coreg) 25 mg PO BID-[facility] Last Admin: 11/14/17 09:27 Dose: 25 mg Cyanocobalamin (Vitamin B-12) 1,000 mcg PO DAILY [facility] Last Admin: 11/14/17 09:27 Dose: 1,000 mcg Dextrose/Water (Dextrose 50%) 25 gm SLOW IVP PRN PRN PRN Reason: Hypoglycemia Dipyridamole/Aspirin (Aggrenox) 1 cap PO BID [facility] Last Admin: 11/14/17 09:26 Dose: 1 cap Enoxaparin Sodium (Lovenox) 40 mg SC 0900 [facility] Last Admin: 11/14/17 09:25 Dose: 40 mg Famotidine (Pepcid) 20 mg PO BID [facility] Last Admin: 11/14/17 09:26 Dose: 20 mg Folic Acid (Folvite) 1 mg PO DAILY [facility] Glucagon (Glucagon) 1 mg IM PRN PRN PRN Reason: Hypoglycemia Guaifenesin/Dextromethorphan (Robitussin Dm) 15 ml PO Q4H PRN PRN Reason: Cough Multivitamins 10 ml/ Folic Acid 1 mg/ Thiamine HCl 100 mg / Dextrose/Sodium Chloride 1,011.2 mls @ 50 mls/hr IV 1600 [facility] Stop: 11/15/17 12:14 Last Admin: 11/13/17 15:07 Dose: 1,011.2 mls Dextrose/Water (D5w) 1,000 mls @ 0 mls/hr IV .Q0M PRN; As Directed PRN Reason: Hypoglycemia Sodium Chloride (Normal Saline 0.9%) 1,000 mls @ 50 mls/hr IV .Q20H [facility] Last Admin: 11/13/17 15:07 Dose: Not Given Metformin HCl (Glucophage) 1,000 mg PO BID-[facility] Last Admin: 11/14/17 09:25 Dose: 1,000 mg Multivitamins (Theragran) 1 tab PO DAILY [facility] Last Admin: 11/14/17 09:27 Dose: 1 tab Nicotine (Nicoderm Patch) 21 mg TD Q24HR [facility] Last Admin: 11/13/17 20:18 Dose: 21 mg Senna (Senokot) 2 tab PO HSPRN PRN PRN Reason: Constipation Thiamine HCl (Thiamine) 100 mg PO DAILY [facility]
[2017-11-14] MEDS: Multivitamins, Adult 10 ML, Folic Acid 1 MG, Thiamine HCl 100 MG in Dextrose 5 %-0.45 %... IV SCH ×4 (18:36)
[2017-11-14] MEDS: Sodium Chloride 0.9% 1,000 ML IV SCH (19:24)
[2017-11-14] MEDS: Atorvastatin Calcium 40 MG TAB PO SCH (20:50)
[2017-11-14] MEDS: Nicotine 21 MG PATCH TD SCH (20:50)
[2017-11-15] MEDS: Folic Acid 1 MG TAB PO SCH (09:35)
[2017-11-15] MEDS: Aggrenox 200-25mg CAP PO SCH ×2 (09:35→22:08)
[2017-11-15] MEDS: Multivit, Therapeutic 1 TAB PO SCH (09:35)
[2017-11-15] MEDS: metFORMIN 500 MG TAB PO SCH ×2 (09:35→17:06)
[2017-11-15] MEDS: Cyanocobalamin (Vitamin B-12) 1,000 MCG TAB PO SCH (09:35)
[2017-11-15] MEDS: Enoxaparin Sodium 40 MG/0.4 ML SYRINGE SC SCH (09:36)
[2017-11-15] MEDS: Famotidine 20 MG TAB PO SCH ×2 (09:36→22:08)
[2017-11-15] MEDS: Carvedilol 25 MG TAB PO SCH ×2 (09:36→17:06)
--- NOTE | 2017-11-15 11:12 | PDOC.PN ---
- Subjective Encounter Start Date: 11/15/17 Encounter Start Time: 09:00 Subjective: is amb in room -: no new weakness, still has left sided weakness - Objective Resuscitation Status: Resuscitation Status FULL:Full Resuscitation MAR Reviewed: Yes Vital Signs & Weight: Vital Signs (12 hours) Temp Pulse Resp BP Pulse Ox 11/15/17 08:43 97.7 F 57 L 16 97 11/15/17 08:08 97.7 F 57 L 16 174/88 H 97 11/15/17 03:08 97.8 F 88 16 131/71 97 Weight Weight 212 lb 4.8 oz I&O: 11/14/17 11/15/17 11/16/17 06:59 06:59 06:59 Intake Total 2125 1400 Output Total 1950 1900 250 Balance 175 -500 -250 Result Diagrams: 11/13/17 05:04 11/13/17 05:04 Additional Labs: Accuchecks 11/15/17 11/14/17 11/14/17 06:29 20:30 16:09 POC Glucose 156 H 183 H 85 Phys Exam - Physical Examination HEENT: PERRLA, moist MMs Neck: no JVD, supple Respiratory: no wheezing, no rales Cardiovascular: RRR, no significant murmur Gastrointestinal: soft, non-tender, positive bowel sounds Musculoskeletal: no edema, pulses present left hemiparesis Psychiatric: normal affect, A&O x 3 Dx/Plan (1) Acute CVA (cerebrovascular accident) Code(s): I63.9 - CEREBRAL INFARCTION, UNSPECIFIED Status: Acute Comment: b/ l cva, prior left hemiparesis, is able to ambulate, has occluded right carotids (2) Alcohol abuse Code(s): F10.10 - ALCOHOL ABUSE, UNCOMPLICATED Status: Chronic (3) Dyslipidemia Code(s): E78.5 - HYPERLIPIDEMIA, UNSPECIFIED Status: Chronic (4) Hypertension Code(s): I10 - ESSENTIAL (PRIMARY) HYPERTENSION Status: Chronic Qualifiers: Hypertension type: essential hypertension Comment: stable. (5) Tobacco abuse Code(s): Z72.0 - TOBACCO USE Status: Chronic - Plan awaiting rehab approval -: may dc anytime if above is arranged -: is on aggrenox and lipitor -: continue coreg * . Review of Systems - Medications/Allergies Allergies/Adverse Reactions: Allergies Allergy/AdvReac Type Severity Reaction Status Date / Time No Known Drug Allergies Allergy Verified 10/25/17 20:52 Medications: Current Medications Acetaminophen (Tylenol) 650 mg PO Q4H PRN PRN Reason: Headache/Fever or Pain Last Admin: 11/14/17 06:13 Dose: 650 mg Atorvastatin Calcium (Lipitor) 40 mg PO HS [facility] Last Admin: 11/14/17 20:50 Dose: 40 mg Carvedilol (Coreg) 25 mg PO BID-[facility] Last Admin: 11/15/17 09:36 Dose: 25 mg Cyanocobalamin (Vitamin B-12) 1,000 mcg PO DAILY [facility] Last Admin: 11/15/17 09:35 Dose: 1,000 mcg Dextrose/Water (Dextrose 50%) 25 gm SLOW IVP PRN PRN PRN Reason: Hypoglycemia Dipyridamole/Aspirin (Aggrenox) 1 cap PO BID [facility] Last Admin: 11/15/17 09:35 Dose: 1 cap Enoxaparin Sodium (Lovenox) 40 mg SC 0900 [facility] Last Admin: 11/15/17 09:36 Dose: 40 mg Famotidine (Pepcid) 20 mg PO BID [facility] Last Admin: 11/15/17 09:36 Dose: 20 mg Folic Acid (Folvite) 1 mg PO DAILY [facility] Last Admin: 11/15/17 09:35 Dose: 1 mg Glucagon (Glucagon) 1 mg IM PRN PRN PRN Reason: Hypoglycemia Guaifenesin/Dextromethorphan (Robitussin Dm) 15 ml PO Q4H PRN PRN Reason: Cough Dextrose/Water (D5w) 1,000 mls @ 0 mls/hr IV .Q0M PRN; As Directed PRN Reason: Hypoglycemia Metformin HCl (Glucophage) 1,000 mg PO BID-[facility] Last Admin: 11/15/17 09:35 Dose: 1,000 mg Multivitamins (Theragran) 1 tab PO DAILY [facility] Last Admin: 11/15/17 09:35 Dose: 1 tab Nicotine (Nicoderm Patch) 21 mg TD Q24HR [facility] Last Admin: 11/14/17 20:50 Dose: 21 mg Senna (Senokot) 2 tab PO HSPRN PRN PRN Reason: Constipation Thiamine HCl (Thiamine) 100 mg PO DAILY [facility] Last Admin: 11/15/17 09:35 Dose: 100 mg
[2017-11-15] MEDS: Nicotine 21 MG PATCH TD SCH (22:08)
[2017-11-15] MEDS: Atorvastatin Calcium 40 MG TAB PO SCH (22:08)
[2017-11-16] MEDS: Enoxaparin Sodium 40 MG/0.4 ML SYRINGE SC SCH (10:33)
[2017-11-16] MEDS: Folic Acid 1 MG TAB PO SCH (10:33)
[2017-11-16] MEDS: metFORMIN 500 MG TAB PO SCH (10:33)
[2017-11-16] MEDS: Multivit, Therapeutic 1 TAB PO SCH (10:33)
[2017-11-16] MEDS: Cyanocobalamin (Vitamin B-12) 1,000 MCG TAB PO SCH (10:33)
[2017-11-16] MEDS: Carvedilol 25 MG TAB PO SCH ×2 (10:34→18:06)
[2017-11-16] MEDS: Aggrenox 200-25mg CAP PO SCH (10:34)
[2017-11-16] MEDS: Famotidine 20 MG TAB PO SCH (10:34)
[2017-11-16] MEDS ORDERED: HumaLOG 300 UNITS/3 ML VIAL SC PRN ×2 (11:05)
--- NOTE | 2017-11-16 11:20 | PDOC.PN ---
- Subjective Encounter Start Date: 11/16/17 Encounter Start Time: 08:00 Subjective: c/o bleeding per rectum this am, no h/o hemorrhoids -: no nausea/abd pain -: no prior colonoscopy/egd - Objective Resuscitation Status: Resuscitation Status FULL:Full Resuscitation MAR Reviewed: Yes Vital Signs & Weight: Vital Signs (12 hours) Temp Pulse Resp BP Pulse Ox 11/16/17 03:04 97.7 F 55 L 16 160/86 H 95 Weight Weight 211 lb 8 oz I&O: 11/15/17 11/16/17 11/17/17 06:59 06:59 06:59 Intake Total 1400 120 Output Total 1900 825 Balance -500 -705 Result Diagrams: 11/13/17 05:04 11/13/17 05:04 Additional Labs: Accuchecks 11/16/17 11/15/17 11/15/17 05:29 20:33 17:15 POC Glucose 94 114 H 105 11/15/17 10:46 POC Glucose 148 H Phys Exam - Physical Examination HEENT: PERRLA, moist MMs Neck: no JVD, supple Respiratory: no wheezing, no rales Cardiovascular: RRR, no significant murmur Gastrointestinal: soft, non-tender, positive bowel sounds Musculoskeletal: no edema, pulses present Neurological: non-focal, moves all 4 limbs Psychiatric: A&O x 3 Dx/Plan (1) Acute CVA (cerebrovascular accident) Code(s): I63.9 - CEREBRAL INFARCTION, UNSPECIFIED Status: Acute Comment: b/ l cva, prior left hemiparesis, is able to ambulate, has occluded right carotids (2) Alcohol abuse Code(s): F10.10 - ALCOHOL ABUSE, UNCOMPLICATED Status: Chronic (3) Dyslipidemia Code(s): E78.5 - HYPERLIPIDEMIA, UNSPECIFIED Status: Chronic (4) Hypertension Code(s): I10 - ESSENTIAL (PRIMARY) HYPERTENSION Status: Chronic Qualifiers: Hypertension type: essential hypertension Comment: stable. (5) Tobacco abuse Code(s): Z72.0 - TOBACCO USE Status: Chronic (6) GI bleed Code(s): K92.2 - GASTROINTESTINAL HEMORRHAGE, UNSPECIFIED Status: Acute Qualifiers: GI bleed type/associated pathology: anorectal hemorrhage Qualified Code(s) : K62.5 - Hemorrhage of anus and rectum - Plan serial h/h, last Hb on was 15g, full liq diet, hold metformin -: gi consult as pt requires aggrenox for rec cva's -: february tx to med floor -: has amb nearly 230ft last evening -: no new weakness and current cva is stable, hold aggenox for now * . Review of Systems - Medications/Allergies Allergies/Adverse Reactions: Allergies Allergy/AdvReac Type Severity Reaction Status Date / Time No Known Drug Allergies Allergy Verified 10/25/17 20:52 Medications: Current Medications Acetaminophen (Tylenol) 650 mg PO Q4H PRN PRN Reason: Headache/Fever or Pain Last Admin: 11/14/17 06:13 Dose: 650 mg Atorvastatin Calcium (Lipitor) 40 mg PO HS [facility] Last Admin: 11/15/17 22:08 Dose: 40 mg Carvedilol (Coreg) 25 mg PO BID-[facility] Last Admin: 11/16/17 10:34 Dose: 25 mg Cyanocobalamin (Vitamin B-12) 1,000 mcg PO DAILY [facility] Last Admin: 11/16/17 10:33 Dose: 1,000 mcg Dextrose/Water (Dextrose 50%) 25 gm SLOW IVP PRN PRN PRN Reason: Hypoglycemia Famotidine (Pepcid) 20 mg PO BID [facility] Last Admin: 11/16/17 10:34 Dose: 20 mg Folic Acid (Folvite) 1 mg PO DAILY [facility] Last Admin: 11/16/17 10:33 Dose: 1 mg Glucagon (Glucagon) 1 mg IM PRN PRN PRN Reason: Hypoglycemia Guaifenesin/Dextromethorphan (Robitussin Dm) 15 ml PO Q4H PRN PRN Reason: Cough Dextrose/Water (D5w) 1,000 mls @ 0 mls/hr IV .Q0M PRN; As Directed PRN Reason: Hypoglycemia Insulin Human Lispro (Humalog) 0 units SC .MODERATE SLIDING SC PRN PRN Reason: Moderate Correctional Scale Insulin Human Lispro (Humalog) 0 units SC .BEDTIME SLIDING SC PRN PRN Reason: Bedtime Correctional Scale Multivitamins (Theragran) 1 tab PO DAILY [facility] Last Admin: 11/16/17 10:33 Dose: 1 tab Nicotine (Nicoderm Patch) 21 mg TD Q24HR [facility] Last Admin: 11/15/17 22:08 Dose: 21 mg Senna (Senokot) 2 tab PO HSPRN PRN PRN Reason: Constipation Thiamine HCl (Thiamine) 100 mg PO DAILY [facility] Last Admin: 11/16/17 10:33 Dose: 100 mg
[2017-11-16 13:41] LABS: Hemoglobin 16.9 g/dL (14.0-18.0); Platelet Count 240 thou/uL (130-400)
[2017-11-16 14:03] LABS: Anion Gap 13 mmol/L (10-20); BUN (Urea Nitrogen) 12 mg/dL (8.4-25.7); Calc. Creatinine Clearance 127 mL/min (70-130); Carbon Dioxide 27 mmol/L (22-29); Chloride 101 mmol/L (98-107); Estimated GFR-MDRD 90; Glucose 104 mg/dL (70-105); Potassium 4.2 mmol/L (3.5-5.1); Sodium 137 mmol/L (136-145)
[2017-11-16] MEDS ORDERED: GoLYTELY 4,000 ml Bottle PO SCH (18:00)
--- NOTE | 2017-11-16 18:56 | CON ---
DATE OF CONSULTATION: 11/16/2017 REQUESTING PHYSICIAN: Dr. River. REASON FOR CONSULTATION: Rectal bleeding. HISTORY OF PRESENT ILLNESS: German Thompson is a 56-year-old man, who was hospitalized he re 4 days ago on 11/12/2017 with acute CVA. MRI upon admission demonstrated multiple new infarcts se condary to right carotid occlusion. He has been medically managed with Aggrenox, Lipitor, and Coreg. He has left-sided numbness and weakness, but there has been no progression of symptoms. Just this morning, he had a loose bowel movement, and there was bright red blood mixed in with this a little bi t but mostly on the toilet paper. This is the first time he has ever noted any rectal bleeding. It is painless. There is no anal pain. He is having a little bit of lower abdominal discomfort just to day. He also has had a couple of loose stools since that time, which have been nonbloody today. Hem oglobin is 16.9. He has been hemodynamically stable. He has never undergone colonoscopy. His fathe r had colon cancer in his 70s. PAST MEDICAL HISTORY: Left-sided CVA, right carotid occlusion, hypertension, hyperlipidemia, alcohol abuse, tobacco abuse, diabetes type 2, history of necrotizing fasciitis of the groin. SOCIAL HISTORY: He smokes half pack per day, drinks around 3-6 beers and margaritas occasionally. N o drug abuse. He lives alone. FAMILY HISTORY: Father of colon cancer in his 70s. ALLERGIES: No known drug allergies. MEDICATIONS: Tylenol p.r.n., Lipitor, Coreg, vitamin B12, folic acid, multivitamin, nicotine patch, thiamin, Aggrenox 1 capsule p.o. b.i.d., held today, metformin, held today. REVIEW OF SYSTEMS: Full review of systems including constitutional, head, eyes, ears, nose, throat, GI, , cardiovascular, respiratory, musculoskeletal, and neurologic systems is negative except as no bird in the HPI. PHYSICAL EXAMINATION: VITAL SIGNS: Temperature 97.5, pulse 64, blood pressure 137/81, and 97% oxygen saturation on room ai r. GENERAL: No acute distress. HEART: Regular rate and rhythm. LUNGS: Clear to auscultation bilaterally. ABDOMEN: Bowel sounds present, soft. Some mild tenderness to palpation in the lower abdomen, but no guarding, rebound tenderness. EXTREMITIES: No peripheral edema. VESSELS: Radial pulses 2+ bilaterally. NEUROLOGICAL: Cranial nerves II-XII intact bilaterally. The patient endorses some loss of sensation on the left side. SKIN: No jaundice, no rashes were palpable. EYES: No scleral icterus. Extraocular movements intact. ENT: Mucous membranes moist, no oral lesions. LYMPH: No submandibular, supraclavicular lymphadenopathy. THYROID: Nontender to palpation. LABORATORY STUDIES: WBC 5.7, hemoglobin 16.9, hematocrit 49.3, platelets 240. BUN 12, creatinine 0. 87. INR 0.9. LFTs normal. Lipase 46. ASSESSMENT AND PLAN: A 56-year-old man recovering from acute cerebrovascular accident due to right c arotid occlusion, now with a single episode of rectal bleeding today and some associated lower abdomi nal discomfort. 1. Rectal bleeding. 2. Lower abdominal pain. This was all acute just today. He has remained hemodynamically stable wit h normal hemoglobin. I do agree that further investigation is warranted due to his age and the fact that he has never had a colonoscopy, as well as his family history of colon cancer in his father, and his need to be on Aggrenox going forward. We will administer bowel preparation tonight and plan for colonoscopy tomorrow. I suspect this likely just represents rectal outlet source, but we will see w hat colonoscopy shows. Thank you for the consultation. Please call with questions or concerns.
[2017-11-16 19:21] LABS: Hemoglobin 16.9 g/dL (14.0-18.0); Platelet Count 221 thou/uL (130-400)
[2017-11-16] MEDS: Atorvastatin Calcium 40 MG TAB PO SCH (20:13)
[2017-11-16] MEDS: Pantoprazole 40 MG VIAL IVP SCH (20:13)
[2017-11-16] MEDS: Nicotine 21 MG PATCH TD SCH (20:14)
[2017-11-17 05:17] LABS: Hemoglobin 16.3 g/dL (14.0-18.0); Platelet Count 217 thou/uL (130-400)
[2017-11-17] MEDS: Carvedilol 25 MG TAB PO SCH ×2 (06:07→16:34)
[2017-11-17] MEDS: Folic Acid 1 MG TAB PO SCH (08:01)
[2017-11-17] MEDS: Cyanocobalamin (Vitamin B-12) 1,000 MCG TAB PO SCH (08:01)
[2017-11-17] MEDS: Multivit, Therapeutic 1 TAB PO SCH (08:01)
[2017-11-17] MEDS: Pantoprazole 40 MG VIAL IVP SCH ×2 (08:01→20:24)
[2017-11-17] MEDS ORDERED: Propofol 200 MG/20 ML VIAL ONE (14:19)
[2017-11-17] MEDS ORDERED: Lidocaine 1% PF 5 ML VIAL ONE (14:19)
--- NOTE | 2017-11-17 15:13 | OP ---
DATE OF PROCEDURE: 11/17/2017 SURGEON: Kraig Martel M.D. COLLEGE DIRECTOR SURGEON: None. PROCEDURE: Colonoscopy with snare polypectomy and Hemoclip placement. INDICATIONS: 1. Rectal bleeding. 2. Family history of colon cancer in a first degree relative (father in his 70s ). 3. This is the patient's first colonoscopy. 4. Lower abdominal pain, resolved today. MEDICATIONS: See anesthesia record. FINDINGS: After discussion of the risks, benefits and alternatives of the procedure, informed consent was obtained and witnessed. Pre-endoscopic cardiopulmonary examination was satisfactory. Timeout was performed before sedation was achieved. Sedation was achieved with anesthesia assistance in the endoscopy unit. A Pentax adult colonoscope was inserted into the anus after digital rectal exam was performed and was normal. The colonoscope was advanced forward to the cecum in the usual fashion. The cecal base was identified by the appendiceal orifice as well as the ileocecal valve. The terminal ileum was not intubated. The colonoscope was then slowly withdrawn in a gradual and circumferential manner with careful examination of the colonic mucosa. The quality of the prep was fair, polyps greater than 6 mm were able to be visualized, but lesions smaller than 5 mm may have been missed. There was no evidence of any old blood or active bleeding throughout the colon. There are some scattered diverticula throughout the colon. In the ascending colon, there was a 1.5 cm pedunculated polyp. This was completely removed with hot snare. There was a visible vessel at the base of the residual stalk and I decided to place the Hemoclip there for prophylaxis against post polypectomy bleeding. The clip was placed without difficulty in good position. In the transverse colon, there was another polyp which was sessile and measured 9 mm in diameter. This was completely removed with hot snare and retrieved for pathology. In the rectum, there was a larger polyp measuring about 2 cm in diameter. This was completely removed with hot snare and retrieved for pathology. Retroflexion in the rectum demonstrated internal hemorrhoids. The colonoscope was then completely withdrawn and the patient allowed to recover. The patient tolerated the procedure well. There were no immediate post-procedure complications. IMPRESSION: 1. A 1.5 cm pedunculated polyp in the ascending colon, completely removed with hot snare and retrieved for pathology. Hemoclip placed at the base of the stalk as prophylaxis against post-polypectomy bleeding. 2. A 9 mm polyp in the transverse colon, completely removed with hot snare and retrieved for pathology. 3. A 2 cm polyp in the rectum, completely removed with hot snare and retrieved for pathology. 4. Internal hemorrhoids. 5. Scattered diverticulosis. 6. Fair bowel prep. RECOMMENDATIONS: 1. Follow up pathology on the colon polyps. 2. Plan to repeat colonoscopy in 6-12 months for surveillance. 3. Advance diet. 4. Gastrointestinal will sign off at this time, but please call back at any time with questions or concerns. SEMAJD
--- NOTE | 2017-11-17 15:16 | PDOC.PN ---
- Subjective Encounter Start Date: 11/17/17 Encounter Start Time: 08:20 Subjective: no further bleeding, feels better - Objective Resuscitation Status: Resuscitation Status FULL:Full Resuscitation MAR Reviewed: Yes Vital Signs & Weight: Vital Signs (12 hours) Temp Pulse Resp BP Pulse Ox 11/17/17 11:37 97.6 F 60 18 124/76 96 11/17/17 08:00 97.6 F 58 L 18 96 11/17/17 07:50 97.6 F 58 L 18 124/84 96 11/17/17 04:00 97.9 F 57 L 18 149/88 H 92 L Weight Weight 208 lb I&O: 11/16/17 11/17/17 11/18/17 06:59 06:59 06:59 Intake Total 120 790 Output Total 825 200 Balance -705 590 Result Diagrams: 11/17/17 04:01 11/16/17 13:20 Additional Labs: Accuchecks 11/17/17 11/16/17 11/16/17 11:39 20:10 17:06 POC Glucose 113 H 131 H 91 Phys Exam - Physical Examination HEENT: PERRLA, moist MMs Neck: no JVD, supple Respiratory: no wheezing, no rales Cardiovascular: RRR, no significant murmur Gastrointestinal: soft, non-tender, no distention, positive bowel sounds Musculoskeletal: no edema, pulses present Neurological: non-focal, moves all 4 limbs Psychiatric: A&O x 3 Dx/Plan (1) Acute CVA (cerebrovascular accident) Code(s): I63.9 - CEREBRAL INFARCTION, UNSPECIFIED Status: Acute Comment: b/ l cva, prior left hemiparesis, is able to ambulate, has occluded right carotids (2) Alcohol abuse Code(s): F10.10 - ALCOHOL ABUSE, UNCOMPLICATED Status: Chronic (3) Dyslipidemia Code(s): E78.5 - HYPERLIPIDEMIA, UNSPECIFIED Status: Chronic (4) Hypertension Code(s): I10 - ESSENTIAL (PRIMARY) HYPERTENSION Status: Chronic Qualifiers: Hypertension type: essential hypertension Comment: stable. (5) Tobacco abuse Code(s): Z72.0 - TOBACCO USE Status: Chronic (6) GI bleed Code(s): K92.2 - GASTROINTESTINAL HEMORRHAGE, UNSPECIFIED Status: Acute Qualifiers: GI bleed type/associated pathology: anorectal hemorrhage Qualified Code(s) : K62.5 - Hemorrhage of anus and rectum - Plan for colonoscopy today -: h/h has remained stable -: will start aggrenox back if no path on colonoscopy -: Hb this am was 16g -: counselled reg alc and tob abuse * . Review of Systems - Medications/Allergies Allergies/Adverse Reactions: Allergies Allergy/AdvReac Type Severity Reaction Status Date / Time No Known Drug Allergies Allergy Verified 10/25/17 20:52 Medications: Current Medications Acetaminophen (Tylenol) 650 mg PO Q4H PRN PRN Reason: Headache/Fever or Pain Last Admin: 11/14/17 06:13 Dose: 650 mg Atorvastatin Calcium (Lipitor) 40 mg PO HS [facility] Last Admin: 11/16/17 20:13 Dose: 40 mg Carvedilol (Coreg) 25 mg PO BID-WM [facility] Last Admin: 11/17/17 06:07 Dose: 25 mg Cyanocobalamin (Vitamin B-12) 1,000 mcg PO DAILY [facility] Last Admin: 11/17/17 08:01 Dose: 1,000 mcg Dextrose/Water (Dextrose 50%) 25 gm SLOW IVP PRN PRN PRN Reason: Hypoglycemia Folic Acid (Folvite) 1 mg PO DAILY [facility] Last Admin: 11/17/17 08:01 Dose: 1 mg Glucagon (Glucagon) 1 mg IM PRN PRN PRN Reason: Hypoglycemia Guaifenesin/Dextromethorphan (Robitussin Dm) 15 ml PO Q4H PRN PRN Reason: Cough Dextrose/Water (D5w) 1,000 mls @ 0 mls/hr IV .Q0M PRN; As Directed PRN Reason: Hypoglycemia Insulin Human Lispro (Humalog) 0 units SC .MODERATE SLIDING SC PRN PRN Reason: Moderate Correctional Scale Insulin Human Lispro (Humalog) 0 units SC .BEDTIME SLIDING SC PRN PRN Reason: Bedtime Correctional Scale Multivitamins (Theragran) 1 tab PO DAILY [facility] Last Admin: 11/17/17 08:01 Dose: 1 tab Nicotine (Nicoderm Patch) 21 mg TD Q24HR [facility] Last Admin: 11/16/17 20:14 Dose: 21 mg Pantoprazole Sodium (Protonix) 40 mg IVP Q12HR [facility] Last Admin: 11/17/17 08:01 Dose: 40 mg Senna (Senokot) 2 tab PO HSPRN PRN PRN Reason: Constipation Thiamine HCl (Thiamine) 100 mg PO DAILY [facility] Last Admin: 11/17/17 08:01 Dose: 100 mg
[2017-11-17] MEDS: Atorvastatin Calcium 40 MG TAB PO SCH (20:23)
[2017-11-17] MEDS: Nicotine 21 MG PATCH TD SCH (20:24)
[2017-11-18] MEDS: Pantoprazole 40 MG VIAL IVP SCH (08:42)
[2017-11-18] MEDS: Multivit, Therapeutic 1 TAB PO SCH (08:42)
[2017-11-18] MEDS: Folic Acid 1 MG TAB PO SCH (08:43)
[2017-11-18] MEDS: Carvedilol 25 MG TAB PO SCH ×2 (08:43→16:26)
[2017-11-18] MEDS: Cyanocobalamin (Vitamin B-12) 1,000 MCG TAB PO SCH (08:43)
[2017-11-18 11:09] LABS: #Eosinphils 0.1 thou/uL (0.0-0.7); #Lymphocytes 1.8 thou/uL (1.20-3.40); #Monocytes 0.9 thou/uL (0.11-0.59); #Neutrophils 5.6 thou/uL (1.40-6.50); %Basophils 0.5 % (0.0-1.0); %Eosinophils 1.3 % (0.0-10.0); %Lymphocytes 20.8 % (21.0-51.0); %Monocytes 10.7 % (0.0-10.0); %Neutrophils 66.7 % (42.0-75.0); Hemoglobin 15.3 g/dL (14.0-18.0); Mean Corpuscular HGB CONC 34.2 g/dL (32.0-36.0); Mean Corpuscular Hemoglobin 34.5 pg (27.0-31.0); Mean Platelet Volume 6.9 fL (7.4-10.4); Platelet Count 202 thou/uL (130-400); RBC Distribution Width 11.5 % (11.5-14.5); Red Blood Cell (RBC) Count 4.45 mill/uL (4.70-6.10); White Blood Cell (WBC) Count 8.4 thou/uL (4.8-10.8)
--- NOTE | 2017-11-18 11:18 | PRG ---
DATE OF SERVICE: 11/18/2017 GI INPATIENT DAILY PROGRESS NOTE SUBJECTIVE: Mr. Thompson had a bowel movement this morning with what was reported as a large amount of bright red blood. This was painless over the past couple hours since then he has passed no furth er bowel movements. There is still no abdominal pain or nausea. He did eat breakfast this morning. No worsening dizziness or lightheadedness. OBJECTIVE: VITAL SIGNS: Temperature 97.5, pulse 65, blood pressure 127/78, 96% oxygen saturation on room air. GENERAL: No acute distress. HEART: Regular rate and rhythm. LUNGS: Clear to auscultation bilaterally. ABDOMEN: Soft and nontender. EXTREMITIES: No peripheral edema. LABORATORY STUDIES: No new labs this morning. Yesterday, hemoglobin was 16.3, hematocrit 47.9, and platelets 217. ASSESSMENT AND PLAN: 1. Lower gastrointestinal bleeding, likely representing post-polypectomy bleeding today. 2. Three large colon polyps, all endoscopically removed with hot snare yesterday. 3. Internal hemorrhoids, small. 4. Diverticulosis, whole colon. The patient's bleeding episode this morning does likely represent p ost-polypectomy bleeding. I discussed with the patient that bleeding can be highly variable in this context. It will often stop on its own, but it is difficult to predict how much bleeding would occur before then. We will go ahead and recheck CBC now. I think we ought to plan for potential repeat c olonoscopy. I advised we could go ahead and drink a bowel preparation now and plan for procedure thi s afternoon, but the patient would prefer to wait and see if he has recurrent bleeding today. So, we will reassess this afternoon. If the patient has had recurrent bleeding or significant decline in h emoglobin, then we would likely plan to administer bowel preparation again this evening. Repeat colo noscopy tomorrow for further assessment. Please call at any time with questions or concerns.
--- NOTE | 2017-11-18 14:25 | PDOC.PN ---
- Subjective Encounter Start Date: 11/18/17 Encounter Start Time: 11:00 Subjective: had a episode of bleeding per rectum this am -: had colonoscopy with polypectomies x3 yesterday -: off aggrenox due to above - Objective Resuscitation Status: Resuscitation Status FULL:Full Resuscitation MAR Reviewed: Yes Vital Signs & Weight: Vital Signs (12 hours) Temp Pulse Resp BP Pulse Ox 11/18/17 10:00 97.5 F L 77 16 161/82 H 95 11/18/17 08:00 97.5 F L 65 20 127/78 96 11/18/17 04:15 97 F L 58 L 18 123/74 98 Weight Weight 209 lb 9.6 oz I&O: 11/17/17 11/18/17 11/19/17 06:59 06:59 06:59 Intake Total 790 1940 600 Output Total 200 Balance 590 1940 600 Result Diagrams: 11/18/17 10:55 11/16/17 13:20 Additional Labs: Accuchecks 11/18/17 11/18/17 11/17/17 11:15 04:23 20:21 POC Glucose 123 H 114 H 188 H 11/17/17 16:27 POC Glucose 195 H Phys Exam - Physical Examination HEENT: PERRLA, moist MMs Neck: no JVD, supple Respiratory: no wheezing, no rales Cardiovascular: RRR, no significant murmur Gastrointestinal: soft, non-tender, no distention, positive bowel sounds Musculoskeletal: no edema, pulses present Neurological: non-focal, moves all 4 limbs Psychiatric: A&O x 3 Dx/Plan (1) Acute CVA (cerebrovascular accident) Code(s): I63.9 - CEREBRAL INFARCTION, UNSPECIFIED Status: Acute Comment: b/ l cva, prior left hemiparesis, is able to ambulate, has occluded right carotids (2) Alcohol abuse Code(s): F10.10 - ALCOHOL ABUSE, UNCOMPLICATED Status: Chronic (3) Dyslipidemia Code(s): E78.5 - HYPERLIPIDEMIA, UNSPECIFIED Status: Chronic (4) Hypertension Code(s): I10 - ESSENTIAL (PRIMARY) HYPERTENSION Status: Chronic Qualifiers: Hypertension type: essential hypertension Comment: stable. (5) Tobacco abuse Code(s): Z72.0 - TOBACCO USE Status: Chronic (6) GI bleed Code(s): K92.2 - GASTROINTESTINAL HEMORRHAGE, UNSPECIFIED Status: Acute Qualifiers: GI bleed type/associated pathology: anorectal hemorrhage Qualified Code(s) : K62.5 - Hemorrhage of anus and rectum - Plan had post polypectomy bleed after colonoscopy yesterday -: for repeat cbc, repeat colonoscopy? if rebleed/h/h drops -: oral aggrenox per GI advice when stable -: may dc home in am if bleeding stops -: on lipitor, coreg * . Review of Systems - Medications/Allergies Allergies/Adverse Reactions: Allergies Allergy/AdvReac Type Severity Reaction Status Date / Time No Known Drug Allergies Allergy Verified 10/25/17 20:52 Medications: Current Medications Acetaminophen (Tylenol) 650 mg PO Q4H PRN PRN Reason: Headache/Fever or Pain Last Admin: 11/14/17 06:13 Dose: 650 mg Atorvastatin Calcium (Lipitor) 40 mg PO HS [facility] Last Admin: 11/17/17 20:23 Dose: 40 mg Carvedilol (Coreg) 25 mg PO BID-[facility] Last Admin: 11/18/17 08:43 Dose: 25 mg Cyanocobalamin (Vitamin B-12) 1,000 mcg PO DAILY [facility] Last Admin: 11/18/17 08:43 Dose: 1,000 mcg Dextrose/Water (Dextrose 50%) 25 gm SLOW IVP PRN PRN PRN Reason: Hypoglycemia Folic Acid (Folvite) 1 mg PO DAILY [facility] Last Admin: 11/18/17 08:43 Dose: 1 mg Glucagon (Glucagon) 1 mg IM PRN PRN PRN Reason: Hypoglycemia Guaifenesin/Dextromethorphan (Robitussin Dm) 15 ml PO Q4H PRN PRN Reason: Cough Dextrose/Water (D5w) 1,000 mls @ 0 mls/hr IV .Q0M PRN; As Directed PRN Reason: Hypoglycemia Insulin Human Lispro (Humalog) 0 units SC .MODERATE SLIDING SC PRN PRN Reason: Moderate Correctional Scale Insulin Human Lispro (Humalog) 0 units SC .BEDTIME SLIDING SC PRN PRN Reason: Bedtime Correctional Scale Multivitamins (Theragran) 1 tab PO DAILY [facility] Last Admin: 11/18/17 08:42 Dose: 1 tab Nicotine (Nicoderm Patch) 21 mg TD Q24HR [facility] Last Admin: 11/17/17 20:24 Dose: 21 mg Pantoprazole Sodium (Protonix) 40 mg IVP Q12HR [facility] Last Admin: 11/18/17 08:42 Dose: 40 mg Senna (Senokot) 2 tab PO HSPRN PRN PRN Reason: Constipation Thiamine HCl (Thiamine) 100 mg PO DAILY [facility] Last Admin: 11/18/17 08:42 Dose: 100 mg
[2017-11-18] MEDS ORDERED: GoLYTELY 4,000 ml Bottle PO SCH (15:00)
[2017-11-18] MEDS: Atorvastatin Calcium 40 MG TAB PO SCH (20:37)
[2017-11-18] MEDS: Nicotine 21 MG PATCH TD SCH (20:38)
--- NOTE | 2017-11-18 22:42 | EKG ---
Test Reason : Blood Pressure : / mmHG Vent. Rate : 088 BPM Atrial Rate : 088 BPM P-R Int : 172 ms QRS Dur : 140 ms QT Int : 418 ms P-R-T Axes : 061 -31 040 degrees QTc Int : 505 ms Normal sinus rhythm Left axis deviation Right bundle branch block Possible Inferior infarct , age undetermined Abnormal ECG Confirmed by ETHAN RUSSELL ([id number]), script editor BETH TSEFAYE ([id number]) on 11/18/2017 10:41:09 PM Referred By: Confirmed By:ETHAN RUSSELL
[2017-11-19 04:18] LABS: #Eosinphils 0.1 thou/uL (0.0-0.7); #Lymphocytes 2.1 thou/uL (1.20-3.40); #Monocytes 0.9 thou/uL (0.11-0.59); #Neutrophils 5.7 thou/uL (1.40-6.50); %Basophils 0.2 % (0.0-1.0); %Eosinophils 1.1 % (0.0-10.0); %Lymphocytes 23.6 % (21.0-51.0); %Monocytes 9.9 % (0.0-10.0); %Neutrophils 65.2 % (42.0-75.0); Mean Corpuscular HGB CONC 34.5 g/dL (32.0-36.0); Mean Corpuscular Hemoglobin 34.7 pg (27.0-31.0); Platelet Count 195 thou/uL (130-400); RBC Distribution Width 11.3 % (11.5-14.5); Red Blood Cell (RBC) Count 4.33 mill/uL (4.70-6.10); White Blood Cell (WBC) Count 8.7 thou/uL (4.8-10.8)
[2017-11-19] MEDS: Carvedilol 25 MG TAB PO SCH ×2 (05:40→16:58)
[2017-11-19] MEDS: Cyanocobalamin (Vitamin B-12) 1,000 MCG TAB PO SCH ×2 (08:41→12:56)
[2017-11-19] MEDS: Folic Acid 1 MG TAB PO SCH ×2 (08:41→12:57)
[2017-11-19] MEDS: Multivit, Therapeutic 1 TAB PO SCH ×2 (08:42→12:56)
--- NOTE | 2017-11-19 11:32 | PDOC.PN ---
- Subjective Encounter Start Date: 11/19/17 Encounter Start Time: 11:32 - Objective Resuscitation Status: Resuscitation Status FULL:Full Resuscitation MAR Reviewed: Yes Vital Signs & Weight: Vital Signs (12 hours) Temp Pulse Resp BP Pulse Ox 11/19/17 08:00 98.4 F 59 L 18 11/19/17 07:25 98.4 F 59 L 18 131/78 94 L 11/19/17 04:00 97.6 F 95 18 148/84 H 96 Weight Weight 210 lb 8 oz I&O: 11/18/17 11/19/17 11/20/17 06:59 06:59 06:59 Intake Total 1940 4760 Output Total 800 Balance 1940 3960 Result Diagrams: 11/19/17 03:48 11/16/17 13:20 Additional Labs: Accuchecks 11/19/17 11/19/17 11/18/17 10:45 05:22 21:12 POC Glucose 110 117 H 90 11/18/17 11/18/17 11/17/17 16:13 11:15 04:35 POC Glucose 169 H 123 H 98 Phys Exam - Physical Examination Constitutional: NAD Neck: no JVD Respiratory: clear to auscultation bilateral Cardiovascular: RRR, no significant murmur Gastrointestinal: soft, positive bowel sounds Musculoskeletal: no edema Dx/Plan (1) GI bleed Code(s): K92.2 - GASTROINTESTINAL HEMORRHAGE, UNSPECIFIED Status: Acute Qualifiers: GI bleed type/associated pathology: anorectal hemorrhage Qualified Code(s) : K62.5 - Hemorrhage of anus and rectum (2) Acute CVA (cerebrovascular accident) Code(s): I63.9 - CEREBRAL INFARCTION, UNSPECIFIED Status: Acute Comment: b/ l cva, prior left hemiparesis, is able to ambulate, has occluded right carotids (3) New onset type 2 diabetes mellitus Code(s): E11.9 - TYPE 2 DIABETES MELLITUS WITHOUT COMPLICATIONS Status: Acute Comment: on sliding scale. (4) Alcohol abuse Code(s): F10.10 - ALCOHOL ABUSE, UNCOMPLICATED Status: Chronic (5) Dyslipidemia Code(s): E78.5 - HYPERLIPIDEMIA, UNSPECIFIED Status: Chronic (6) Hypertension Code(s): I10 - ESSENTIAL (PRIMARY) HYPERTENSION Status: Chronic Qualifiers: Hypertension type: essential hypertension Comment: stable. (7) Tobacco abuse Code(s): Z72.0 - TOBACCO USE Status: Chronic - Plan cont off antiplatelet tx today, monitor for bleeding, cbc in am * .
--- NOTE | 2017-11-19 13:31 | OP ---
DATE OF PROCEDURE: 11/19/2017 GI ENDOSCOPY NOTE SURGEON: Kraig Martel M.D. BOILERMAKER APPRENTICE SURGEON: None. PROCEDURE: Colonoscopy with control of hemorrhage. INDICATION: Post-polypectomy bleeding. MEDICATIONS: See anesthesia record. FINDINGS: After discussion of the risks, benefits, and alternatives of the procedure, informed conse nt was obtained and witnessed. Pre-endoscopic cardiopulmonary examination was satisfactory. Timeout was performed before sedation was achieved. Sedation was achieved with anesthesia assistance in the endoscopy unit. A digital rectal exam was performed, which was unremarkable. A Pentax adult colono scope was inserted into the anus and passed forward to the cecum in the usual fashion. The cecal bas e was identified by the appendiceal orifice as well as the ileocecal valve. The terminal ileum was n ot intubated. The colonoscope was then slowly withdrawn in a gradual and circumferential manner with careful examination of the entire colonic mucosa. The quality of the prep was adequate. In the asc ending colon at the site of one of his recent polypectomies, there was some small amount of fresh blo od in the colon and fresh blood clot at the polypectomy site. This site had actually been prophylact ically clipped with a Hemoclip, which is noted to be still in place. However, this is felt to be the source of his post-polypectomy bleeding given the small amount of fresh blood in the area and overly ing blood clot. I placed 1 more Hemoclip to the area with good hemostasis achieved and maintained. The remaining 2 polypectomy sites were examined and did not appear to have any evidence or stigmata o f recent bleeding. The polypectomy site in the rectum is quite large, but essentially clean based wi th no visible vessels. I did not perform any endoscopic therapy to this area, as it does not appear to have done any bleeding. The colonoscope was then completely withdrawn and the patient allowed to recover. The patient tolerated the procedure well. There were no immediate post-procedure complicat ions. IMPRESSION: 1. Ascending colon post-polypectomy ulcer with overlying blood clot and small amount of fresh blood in the area. Hemoclip placed to the area with good hemostasis achieved and maintained. 2. Rectal polypectomy site, large, but clean based with no evidence of recent bleeding, no therapy a pplied on this exam. RECOMMENDATIONS: 1. Advance diet. 2. Go ahead and restart Aggrenox, as this does appear to be strongly indicated given his recent hist ory of stroke and carotid occlusion. Polypectomy rebleeding risk will be increased for the next week or two, but this seems to me to be an acceptable risk given his recent stroke and his satisfactory h emoglobin.
[2017-11-19] MEDS ORDERED: Lidocaine 1% PF 5 ML VIAL ONE (16:41)
[2017-11-19] MEDS ORDERED: Propofol 200 MG/20 ML VIAL ONE (16:41)
[2017-11-19] MEDS: Nicotine 21 MG PATCH TD SCH (20:44)
[2017-11-19] MEDS: Atorvastatin Calcium 40 MG TAB PO SCH (20:44)
[2017-11-20 05:10] LABS: #Basophils 0.1 thou/uL (0.0-0.2); #Eosinphils 0.1 thou/uL (0.0-0.7); #Lymphocytes 1.9 thou/uL (1.20-3.40); #Monocytes 0.7 thou/uL (0.11-0.59); #Neutrophils 4.4 thou/uL (1.40-6.50); %Basophils 0.7 % (0.0-1.0); %Eosinophils 1.6 % (0.0-10.0); %Lymphocytes 26.4 % (21.0-51.0); %Monocytes 9.6 % (0.0-10.0); %Neutrophils 61.7 % (42.0-75.0); Hemoglobin 15.1 g/dL (14.0-18.0); Mean Corpuscular HGB CONC 34.3 g/dL (32.0-36.0); Mean Corpuscular Hemoglobin 34.3 pg (27.0-31.0); Mean Platelet Volume 7.3 fL (7.4-10.4); Platelet Count 181 thou/uL (130-400); RBC Distribution Width 11.2 % (11.5-14.5); Red Blood Cell (RBC) Count 4.39 mill/uL (4.70-6.10); White Blood Cell (WBC) Count 7.1 thou/uL (4.8-10.8)
[2017-11-20] MEDS: Folic Acid 1 MG TAB PO SCH (09:24)
[2017-11-20] MEDS: Cyanocobalamin (Vitamin B-12) 1,000 MCG TAB PO SCH (09:24)
[2017-11-20] MEDS: Multivit, Therapeutic 1 TAB PO SCH (09:24)
[2017-11-20] MEDS: Carvedilol 25 MG TAB PO SCH (09:24)
--- NOTE | 2017-11-20 10:10 | PRG ---
DATE OF SERVICE: 11/20/2017 SUBJECTIVE: Mr. Thompson has been doing well. He is eating normally. He had a bowel movement kevon ier today and there was no evidence of any bleeding. Hemoglobin remains stable at 15.1. OBJECTIVE: VITAL SIGNS: Temperature 97.7, pulse 61, blood pressure 115/71, 95% oxygen saturation on room air. GENERAL: No acute distress. HEART: Regular rate and rhythm. LUNGS: Clear to auscultation bilaterally. ABDOMEN: Bowel sounds present, soft and nontender to palpation. EXTREMITIES: No peripheral edema. LABORATORY STUDIES: WBC 7.1, hemoglobin 15.1, platelets 181. Glucose 106. ASSESSMENT AND PLAN: Post-polypectomy bleeding, status post colonoscopy with Hemoclip placement to p olypectomy site yesterday. There has been no further evidence of bleeding since his colonoscopy yest erday. Again, from a GI perspective, I would go ahead and start him on Aggrenox if needed, and just accept the risk of rebleeding over the next 1-2 weeks, given his recent stroke and satisfactory hemog lobin. GI will sign off, but please call back any time with questions or concerns.
--- NOTE | 2017-11-20 12:24 | DIS ---
TRANSFER OF CARE NOTE DATE OF ADMISSION: 11/12/2017 DATE OF DISCHARGE: 11/20/2017 DISPOSITION: Discharged home. PRIMARY CARE PROVIDER: [facility]. FINAL DIAGNOSES: 1. Cerebrovascular accident with decreased functionality of the left lower extremity and the left up per extremity. 2. Hypertension. 3. Dyslipidemia. 4. Alcohol and tobacco abuse. 5. Diabetes mellitus type 2. His brain MRI 11/13/2017 showed restricted diffusion. He was seen in consultation by Dr. Krystyna Lacy who recommended continuing Aggrenox. PT, OT. Control of blood pressure. On 11/16/2017 the patient was seen by Dr. Kraig Martel for rectal bleeding. His hemoglobin was stable, greater than 15. On 10/24 he had a colonoscopy with snare polypectomy. Postoperatively the next day the patient had mor e bleeding and was taken to the endoscopy room on 11/19/2017 for colonoscopy with control of hemorrha ge. The patient's neurological status improved. He is walking active without significant limitation s at the present time. He was approved for rehabilitation, but has declined it. His Aggrenox was he ld transiently. Dr. Martel has recommended it be continued despite the fact that he might have a small amount of rectal bleeding as his hemoglobin is stable at greater than 15. The patient is doing well , desirous of going home. He is being discharged. He has been cautioned about alcohol and tobacco. He is actually on no new medicines. He is to follow up with his PCP in 1 week and will have followup arranged with Dr. Martel and he is to follow up with Dr. Krystyna Lacy as advised by Dr. Lacy. This patient's prognosis is limited by his adverse habits and compliance. He had been advised he cou ld have some small bleeding over the next few days on the Aggrenox. If he has significant bleeding h e is to return to the hospital.
[2017-11-20 13:44] VITALS: BP 140/69; TEMP 98.6
== END 2017-11-20 14:07 | disposition home or self-care (01) | DRG 65 ==
LOC: ERS 15:46 → 2SE 17:44 → T4-B 11-16 21:13
PROVIDERS: ADMIT Internal Medicine; ATTEND Internal Medicine
PROC: 0DBK8ZX Excision of Ascending Colon, Via Natural or Artificial Opening Endoscopic, Diagnostic (ICD-10-PCS; 2017-11-17)
PROC: 0DBL8ZX Excision of Transverse Colon, Via Natural or Artificial Opening Endoscopic, Diagnostic (ICD-10-PCS; 2017-11-17)
PROC: 0DBP8ZX Excision of Rectum, Via Natural or Artificial Opening Endoscopic, Diagnostic (ICD-10-PCS; 2017-11-17)
PROC: 0W3P8ZZ Control Bleeding in Gastrointestinal Tract, Via Natural or Artificial Opening Endoscopic (ICD-10-PCS; principal; 2017-11-19)
DX: I63.9 Cerebral infarction, unspecified (principal); I69.954 Hemiplegia and hemiparesis following unspecified cerebrovascular disease affecting left non-dominant side; E86.0 Dehydration; K91.840 Postprocedural hemorrhage of a digestive system organ or structure following a digestive system procedure; K92.1 Melena; I65.21 Occlusion and stenosis of right carotid artery; F17.210 Nicotine dependence, cigarettes, uncomplicated; I10 Essential (primary) hypertension; E78.5 Hyperlipidemia, unspecified; F10.10 Alcohol abuse, uncomplicated; E11.9 Type 2 diabetes mellitus without complications; Z79.84 Long term (current) use of oral hypoglycemic drugs; K63.5 Polyp of colon; Z80.0 Family history of malignant neoplasm of digestive organs; K57.30 Diverticulosis of large intestine without perforation or abscess without bleeding; K64.8 Other hemorrhoids; I45.10 Unspecified right bundle-branch block
CPT/HCPCS: 36415; 36416; 70450; 70551; 71045; 71275; 80048; 80053; 80061; 80306; 80307; 81003; 82553; 83605; 83690; 83735; 83880; 84443; 84484; 85014; 85018; 85025; 85049; 85610; 85730; 88305; 93005; 96365; 96366; 96375; C9113; G8978-GP-CK; G8979-GP-CI; G8987-GO-CK; G8988-GO-CI; G8996-GN-CH; G8997-GN-CH; J1650; J2001; J2270; J2704; J3411; J7042

== ENCOUNTER 2017-12-16 18:17 | Emergency (ER) | payer SELFPAY ==
[2017-12-16 18:51] LABS: #Eosinphils 0.1 thou/uL (0.0-0.7); #Monocytes 0.6 thou/uL (0.11-0.59); %Basophils 0.7 % (0.0-1.0); %Eosinophils 1.8 % (0.0-10.0); %Monocytes 8.8 % (0.0-10.0); %Neutrophils 58.7 % (42.0-75.0); Hemoglobin 16.4 g/dL (14.0-18.0); Mean Corpuscular HGB CONC 34.9 g/dL (32.0-36.0); Mean Corpuscular Hemoglobin 34.6 pg (27.0-31.0); Mean Platelet Volume 6.6 fL (7.4-10.4); Platelet Count 232 thou/uL (130-400); RBC Distribution Width 11.7 % (11.5-14.5); Red Blood Cell (RBC) Count 4.75 mill/uL (4.70-6.10); White Blood Cell (WBC) Count 6.7 thou/uL (4.8-10.8)
[2017-12-16 19:16] LABS: Troponin I Less than 0.010 ng/mL (< 0.028)
[2017-12-16 19:18] LABS: ALT (SGPT) 23 U/L (8-55); AST (SGOT) 20 U/L (5-34); Albumin 4.2 g/dL (3.5-5.0); Alcohol 76 mg/dL (Less than 10); Alkaline Phosphatase 98 U/L (40-150); Anion Gap 20 mmol/L (10-20); BUN (Urea Nitrogen) 14 mg/dL (8.4-25.7); Bilirubin, Total 0.3 mg/dL (0.2-1.2); Calc. Creatinine Clearance 0 mL/min (70-130); Calcium 9.3 mg/dL (7.8-10.44); Carbon Dioxide 22 mmol/L (22-29); Chloride 100 mmol/L (98-107); Estimated GFR-MDRD 59; Globulin 3.5 g/dL (2.4-3.5); Glucose 145 mg/dL (70-105); Potassium 3.7 mmol/L (3.5-5.1); Protein, Total 7.7 g/dL (6.0-8.3); Sodium 138 mmol/L (136-145)
--- NOTE | 2017-12-16 19:40 | CT ---
CT HEAD WITHOUT CONTRAST: 12/16/17 Multiple axial tomograms obtained through the head without IV enhancement. HISTORY: Mental status change. COMPARISON: Comparison made to recent head CT of 11/12/17. Prior exam revealed ischemic white matter changes and subacute infarcts. On today's exam ischemic whi te matter changes are again noted and appears stable. Old lacunar infarct in the left basal ganglia a gain noted. Mild volume loss along the frontal lobe is again noted. No hemorrhage. No acute cortical infarct identified. IMPRESSION: Ischemic changes are again noted and appears stable from prior exam. No acute interval change noted. POS: [facility]
== END 2017-12-16 20:54 | disposition home or self-care (01) ==
LOC: ERS 18:17
DX: R53.1 Weakness (principal); E11.9 Type 2 diabetes mellitus without complications; E78.5 Hyperlipidemia, unspecified; I10 Essential (primary) hypertension; F17.210 Nicotine dependence, cigarettes, uncomplicated; Z86.73 Personal history of transient ischemic attack (TIA), and cerebral infarction without residual deficits
CPT/HCPCS: 36415; 70450; 80053; 80307; 82553; 84484; 85025; 93005

== ENCOUNTER 2019-01-25 08:07 | Day surgery (SDC) | payer OTHER ==
[2019-01-24 14:44] VITALS: BMI 35.5
[2019-01-25] MEDS ORDERED: Lidocaine 1% PF 5 ML VIAL ONE (11:19)
[2019-01-25] MEDS ORDERED: PROPOFOL 200 MG/20 ML VIAL ONE (11:19)
--- NOTE | 2019-01-25 16:57 | OP ---
DATE OF PROCEDURE: 01/25/2019 FISHER TRAP SURGEON: None. PROCEDURE PERFORMED: Colonoscopy with snare polypectomy. INDICATION: 1. Personal history of colon polyps. 2. Family history of colon cancer (father). 3. Last colonoscopy in October 2017, with 3 adenomas removed, only fair prep. MEDICATIONS: See Anesthesia record. FINDINGS: After discussion of the risks, benefits, and alternatives of the procedure, informed consent was obtained and witnessed. Pre-endoscopic cardiopulmonary examination was satisfactory. Time-out was performed before sedation was achieved. Sedation was achieved with Anesthesia assistance in the endoscopy unit. Digital rectal exam was performed, which was unremarkable. A Pentax adult colonoscope was inserted into the anus and passed forward to the cecum in the usual fashion. The cecal base was identified by the appendiceal orifice as well as the ileocecal valve. The terminal ileum was intubated and the ileal mucosa appeared normal. The colonoscope was then slowly withdrawn in a gradual circumferential manner with careful examination of the entire colonic mucosa. The quality of the prep was good. There was some scattered diverticulosis throughout the colon. In the rectum, there was a single 2 mm sessile polyp. This was completely removed with cold snare and retrieved for pathology. Retroflexion in the rectum demonstrated some small internal hemorrhoids. The colonoscopy was otherwise normal. The colonoscope was completely withdrawn and the patient allowed to recover. The patient tolerated the procedure well. There were no immediate postprocedure complications. IMPRESSION: 1. 2 mm rectal polyp, completely removed with cold snare and retrieved for pathology. 2. Scattered diverticulosis throughout the colon. 3. Small internal hemorrhoids. 4. Otherwise, normal colonoscopy to the terminal ileum. RECOMMENDATIONS: 1. Follow up pathology on the rectal polyp. 2. Repeat colonoscopy for surveillance in 5 years. Job ID: [id number]
== END 2019-01-25 11:10 | disposition home or self-care (01) ==
LOC: SDC 08:07
PROVIDERS: ATTEND Internal Medicine
PROC: 0DBP8ZX Excision of Rectum, Via Natural or Artificial Opening Endoscopic, Diagnostic (ICD-10-PCS; principal; 2019-01-25)
DX: K62.1 Rectal polyp (principal); K57.30 Diverticulosis of large intestine without perforation or abscess without bleeding; K64.8 Other hemorrhoids; I10 Essential (primary) hypertension; E11.9 Type 2 diabetes mellitus without complications; E78.00 Pure hypercholesterolemia, unspecified; F17.200 Nicotine dependence, unspecified, uncomplicated; Z86.010 Personal history of colon polyps; Z86.73 Personal history of transient ischemic attack (TIA), and cerebral infarction without residual deficits; Z80.0 Family history of malignant neoplasm of digestive organs; Z98.890 Other specified postprocedural states; Z79.82 Long term (current) use of aspirin; Z79.4 Long term (current) use of insulin; Z79.899 Other long term (current) drug therapy
CPT/HCPCS: 36416; 88305; J2001; J2704

== ENCOUNTER 2019-03-04 12:25 | Emergency (ER) | payer SELFPAY ==
[2019-03-04 12:54] LABS: #Eosinphils 0.2 thou/uL (0.0-0.7); #Lymphocytes 1.7 thou/uL (1.20-3.40); #Monocytes 0.8 thou/uL (0.11-0.59); #Neutrophils 6.5 thou/uL (1.40-6.50); %Basophils 0.1 % (0.0-1.0); %Eosinophils 1.7 % (0.0-10.0); %Lymphocytes 18.8 % (21.0-51.0); %Monocytes 8.9 % (0.0-10.0); %Neutrophils 70.5 % (42.0-75.0); Hemoglobin 15.1 g/dL (14.0-18.0); Mean Corpuscular HGB CONC 32.5 g/dL (32.0-36.0); Mean Corpuscular Hemoglobin 30.9 pg (27.0-31.0); Mean Platelet Volume 6.8 fL (7.4-10.4); Platelet Count 267 thou/uL (130-400); RBC Distribution Width 11.9 % (11.5-14.5); Red Blood Cell (RBC) Count 4.89 mill/uL (4.70-6.10); White Blood Cell (WBC) Count 9.2 thou/uL (4.8-10.8)
[2019-03-04 13:22] LABS: ALT (SGPT) 21 U/L (8-55); AST (SGOT) 18 U/L (5-34); Albumin 4.1 g/dL (3.5-5.0); Alkaline Phosphatase 79 U/L (40-150); Anion Gap 14 mmol/L (10-20); BUN (Urea Nitrogen) 9 mg/dL (8.4-25.7); Bilirubin, Total 0.5 mg/dL (0.2-1.2); Calc. Creatinine Clearance 0 mL/min (70-130); Calcium 9.2 mg/dL (7.8-10.44); Carbon Dioxide 25 mmol/L (22-29); Chloride 100 mmol/L (98-107); Estimated GFR-MDRD Greater than 90; Globulin 3.1 g/dL (2.4-3.5); Glucose 83 mg/dL (70-105); Potassium 4.3 mmol/L (3.5-5.1); Protein, Total 7.2 g/dL (6.0-8.3); Sodium 135 mmol/L (136-145)
--- NOTE | 2019-03-04 14:20 | RAD ---
CHEST 1 VIEW: Date: 03/04/19 HISTORY: Right thigh burning, dizziness. COMPARISON: 11/12/17. FINDINGS: Heart size is within normal limits. The bronchovascular markings are slightly increased. No confluent pneumonia or overt edema. Stable biapical pleural thickening. IMPRESSION: Minimal increased markings bilaterally, stable. No pneumonia, edema, or other significant acute intra thoracic disease. POS: [facility]
--- NOTE | 2019-03-04 14:57 | RAD ---
Right femur 2 views: HISTORY: Right lower extremity pain. FINDINGS: The visualized portions of the right femur is intact. There are degenerative changes in the right hip joint. A tiny radiopaque density suggestive of a foreign body is seen in the soft tissues of the upper anter ior aspect of the right knee.
--- NOTE | 2019-03-04 14:59 | CT ---
CT BRAIN WITHOUT CONTRAST: HISTORY:Left-sided deficits in the past. COMPARISON:03/25/2018 FINDINGS: There are foci of decreased attenuation in the periventricular white matter, consistent with chronic small vessel ischemic disease. Small infarctions are again seen. No evidence of acute infarct, hemorrhage, midline shift or abnormal extra-axial fluid collections is seen. The ventricular size is appropriate and the basilar cisterns are patent. The bony calvarium is intact. There is mucosal disease in the paranasal sinuses. IMPRESSION: No CT evidence of acute intracranial process.
[2019-03-04 15:01] LABS: Bilirubin Negative (Negative); Blood, Urine Negative (Negative); Clarity CLEAR (Clear); Glucose, Urine (Dipstick) Negative (Negative); Leukocyte Negative (Negative); Nitrite Negative (Negative); Protein, Urine (Dipstick) Negative (Neg-Trace); Specific Gravity, Urine 1.003 (1.002-1.036); Urobilinogen 0.2 mg/dL (0.2-1.0); pH, Urine 6.5 (5.0-9.0)
[2019-03-04] MEDS ORDERED: HYDROcodone/Acetaminophen 5/325 mg Tablet ONE (16:28)
== END 2019-03-04 17:21 | disposition home or self-care (01) ==
LOC: ERS 12:25
DX: M79.651 Pain in right thigh (principal); R26.2 Difficulty in walking, not elsewhere classified; E11.9 Type 2 diabetes mellitus without complications; E78.5 Hyperlipidemia, unspecified; I10 Essential (primary) hypertension; Z86.73 Personal history of transient ischemic attack (TIA), and cerebral infarction without residual deficits; F17.210 Nicotine dependence, cigarettes, uncomplicated; Z79.4 Long term (current) use of insulin; Z79.899 Other long term (current) drug therapy
CPT/HCPCS: 36415; 70450; 71045; 80053; 81003; 83605; 84484; 85025; 93005; 94640; J7620

== ENCOUNTER 2019-07-13 16:02 | Observation (INO) | payer SELFPAY ==
[2019-07-13 16:12] VITALS: BMI 38.5
[2019-07-13] MEDS ORDERED: Ondansetron PF 4 MG/2 ML Vial IVP PRN (17:54)
[2019-07-13] MEDS ORDERED: Nitroglycerin 0.4 MG TAB (25 Tab Bottle) PO PRN (17:54)
[2019-07-13] MEDS ORDERED: Ondansetron ODT 4 MG TAB PO PRN (17:54)
[2019-07-13] MEDS ORDERED: Acetaminophen 325 MG TAB PO PRN (17:54)
[2019-07-13] MEDS ORDERED: HumaLOG 300 UNITS/3 ML VIAL SC PRN ×2 (17:56)
[2019-07-13] MEDS ORDERED: Dextrose 50% Abboject 50 ML SYRINGE SLOW IVP PRN (17:56)
[2019-07-13] MEDS ORDERED: Dextrose 5% in Water 1,000 ML IV PRN (17:56)
[2019-07-13] MEDS ORDERED: Cyclobenzaprine 10 MG TAB PO PRN (17:56)
[2019-07-13] MEDS ORDERED: Acetaminophen/Codeine 30-300mg Tablet PO PRN (18:26)
--- NOTE | 2019-07-13 18:44 | RAD ---
3 views left shoulder: 07/13/2019 COMPARISON: None HISTORY: Left shoulder pain FINDINGS: There is inferior osteophyte formation and joint space narrowing involving the right acromi oclavicular interspace. No widening of the coracoclavicular interspace. No acute fracture or dislocation. IMPRESSION: AC joint degenerative change.
--- NOTE | 2019-07-13 18:45 | RAD ---
2 views left humerus: 07/13/2019 COMPARISON: None HISTORY: Left arm pain FINDINGS: There is enthesophyte formation of the distal humerus in the region of the lateral and medi al epicondyles. No displaced fracture. IMPRESSION: No acute osseous normality.
[2019-07-13 19:33] LABS: Troponin I Less than 0.010 ng/mL (< 0.028)
[2019-07-13] MEDS ORDERED: Insulin Glargine 60 UNITS in Pre-Filled Syringe 1 EACH SC SCH (21:00)
[2019-07-13] MEDS ORDERED: INSULIN GLARGINE HUM REC ANLOG SQ SCH (21:00)
[2019-07-13] MEDS ORDERED: [UNRECOGNIZED DRUG - OTHER] SQ SCH (21:00)
[2019-07-13] MEDS: Gabapentin 300 MG CAP PO SCH (21:07)
[2019-07-13] MEDS: Carvedilol 6.25 MG TAB PO SCH (21:07)
[2019-07-13] MEDS: Famotidine 20 MG TAB PO SCH (21:08)
[2019-07-13] MEDS: Insulin Glargine 30 UNITS in Pre-Filled Syringe 1 EACH SC SCH (21:14)
[2019-07-13 22:30] LABS: Troponin I Less than 0.010 ng/mL (< 0.028)
--- NOTE | 2019-07-13 23:06 | HP ---
PRIMARY CARE PHYSICIAN: [facility] in [place]. CHIEF COMPLAINT: Chest pain, left arm pain. HISTORY OF PRESENT ILLNESS: Mr. Thompson is a 58-year-old male, with past medical history of hypertension, hyperlipidemia, diabetes mellitus type 2, and a history of a stroke, presented to an outside [place] ED earlier today after he has been having left arm pain and left-sided chest pain after a fall roughly 3 days ago. The patient had a mechanical fall at home 3 days ago, he had denied any fever, chills, any headache, blurred vision, dizziness, any loss of consciousness, any palpitations, shortness of breath, abdominal pain, nausea, or vomiting. He states that since then he has not been able to raise his left arm due to the pain. His workup in [place] included a chest x-ray which was normal. His cardiac enzymes were also found to be normal, but due to his chest pain and his previous history, the ED physician felt that he had in that he would need to be transferred here for further chest pain rule out. He was given morphine, aspirin and nitroglycerin in the ED in [place] and his pain actually resolved. When he got to [facility], he had stated that his symptoms were much improved; however, his loss of movement to the left arm was still present and no further imaging had been done at that time. His blood pressure and other vital signs remained stable and he had denied any further episodes of chest pain. REVIEW OF SYSTEMS: All other systems were reviewed and found to be negative unless mentioned in the HPI. PAST MEDICAL HISTORY: Hypertension, hyperlipidemia, diabetes mellitus type 2 on insulin, CVA x2 in 2017. PAST SURGICAL HISTORY: None. SOCIAL HISTORY: The patient reports drinking socially and smoking half pack of cigarettes per day; however, denies any illicit drug use. KNOWN ALLERGIES: No known drug allergies. CURRENT HOME MEDICATIONS: 1. Metformin 1000 mg p.o. b.i.d. 2. Acetaminophen with codeine 300 mg/60 mg p.o. q.6 hours p.r.n. pain. 3. Carvedilol 12.5 mg p.o. b.i.d. 4. Cyclobenzaprine 10 mg p.o. t.i.d. 5. Furosemide 20 mg p.o. daily. 6. Gabapentin 600 mg p.o. b.i.d. 7. Insulin glargine 60 units subcu b.i.d. PHYSICAL EXAMINATION: VITAL SIGNS: BP 148/79, pulse 61, respirations 20, temperature 97.5, O2 saturation 96% on room air. GENERAL: The patient is awake, alert, and oriented x3. He is currently sitting up in bed and in no acute distress. His family is at bedside. HEENT: Atraumatic, normocephalic. Pupils are round and reactive to light. Extraocular muscles intact. Moist mucous membranes noted. Poor oral hygiene noted. NECK: Soft and supple. Trachea midline. CARDIOVASCULAR: Positive S1 and S2. Regular rate and rhythm. No murmur auscultated. RESPIRATORY: Clear to auscultation bilaterally. No wheezes, rales, or rhonchi. ABDOMEN: Soft, nontender. Bowel sounds present. EXTREMITIES: The patient is unable to raise the left arm passed on 90 degrees of forward flexion. He also has tenderness to palpation over the left shoulder and down left humerus. Strength 5+ bilaterally upper and lower extremities. No edema noted. NEUROLOGIC: Cranial nerves 2 through 12 grossly intact. No focal deficits noted speech intact and normal. Gait not assessed. SKIN: Warm, dry, and intact. No rashes. No ulceration noted. PSYCHIATRIC: Good mood and affect. LABORATORY DATA: WBC 9.9, RBC 4.79, hemoglobin 14.6, platelet 245. Sodium 139, potassium 4.2, anion gap 15, BUN 7, creatinine 0.75, estimated GFR greater than 90, glucose 82. Troponin negative x1. Urinalysis unremarkable. Toxicology screen; detected opiates, otherwise unremarkable and plasma alcohol was less than 10. ASSESSMENT/PLAN: 1. Chest pain. Due to patient's chest pain, this was likely secondary to a fall he had sustained 3 days ago; however due to his past medical history, we will trend out cardiac enzymes and order a stress test in the morning to rule out acute coronary syndrome. 2. Left shoulder and arm pain along with weakness. We will obtain a left shoulder and left humerus x-ray to rule out a fracture at this time. 3. Hypertension. Continue home regimen and monitor blood pressure and other vital signs closely. 4. Hyperlipidemia. Check a lipid panel in the morning and continue to monitor him closely. 5. History of diabetes mellitus type 2. Continue home regimen; however, hold his metformin and place on insulin sliding scale with frequent Accu-Cheks. 6. Deep venous thrombosis and gastrointestinal prophylaxis. 7. Code status is full code. DISPOSITION: Pending further workup and clinical findings. Job ID: [id number]
[2019-07-14 05:06] LABS: #Basophils 0.1 thou/uL (0.0-0.2); #Eosinphils 0.2 thou/uL (0.0-0.7); #Lymphocytes 2.8 thou/uL (1.20-3.40); #Neutrophils 6.2 thou/uL (1.40-6.50); %Basophils 0.6 % (0.0-1.0); %Eosinophils 1.6 % (0.0-10.0); %Monocytes 10.2 % (0.0-10.0); %Neutrophils 60.5 % (42.0-75.0); Hemoglobin 14.6 g/dL (14.0-18.0); Mean Corpuscular HGB CONC 33.9 g/dL (32.0-36.0); Mean Corpuscular Hemoglobin 32.4 pg (27.0-31.0); Mean Corpuscular Volume 95.7 fL (78.0-98.0); Mean Platelet Volume 6.9 fL (7.4-10.4); Platelet Count 233 thou/uL (130-400); Red Blood Cell (RBC) Count 4.51 mill/uL (4.70-6.10); White Blood Cell (WBC) Count 10.2 thou/uL (4.8-10.8)
[2019-07-14 05:32] LABS: Anion Gap 12 mmol/L (10-20); BUN (Urea Nitrogen) 10 mg/dL (8.4-25.7); Calc. Creatinine Clearance 152 mL/min (70-130); Carbon Dioxide 31 mmol/L (22-29); Cardiac Risk 5.3 (Less than 4.5); Chloride 99 mmol/L (98-107); Cholesterol 197 mg/dl (< 200 Desired); Estimated GFR-MDRD Greater than 90; Glucose 85 mg/dL (70-105); HDL Cholesterol 37 mg/dL (>60 Neg Risk); LDL Cholesterol, Calculated 117 mg/dL; Potassium 3.6 mmol/L (3.5-5.1); Sodium 138 mmol/L (136-145); Triglycerides 216 mg/dL (Less than 150)
[2019-07-14] MEDS: Gabapentin 300 MG CAP PO SCH (08:09)
[2019-07-14] MEDS: Famotidine 20 MG TAB PO SCH (08:10)
[2019-07-14] MEDS ORDERED: Furosemide 20 MG TAB PO SCH (09:00)
[2019-07-14] MEDS ORDERED: Enoxaparin Sodium 40 MG/0.4 ML SYRINGE SC SCH (09:00)
[2019-07-14] MEDS: Insulin Glargine 30 UNITS in Pre-Filled Syringe 1 EACH SC SCH (12:38)
[2019-07-14] MEDS: Carvedilol 6.25 MG TAB PO SCH (12:38)
[2019-07-14 12:47] VITALS: BP 149/72; TEMP 98
--- NOTE | 2019-07-14 13:02 | NM ---
EXAM: NM Cardiac Stress W EF WF PROVIDED CLINICAL HISTORY: Chest pain COMPARISON: None RADIOPHARMACEUTICAL: 30.3 millicuries technetium 99m labeled sestamibi IV stress 9 millicuries technetium 99m labeled sestamibi IV rest FINDINGS: There is normal, homogeneous distribution of radiotracer throughout the left ventricular myocardium. Gated data demonstrate normal myocardial wall motion and thickening with calculated LVEF 67%. Calculated TID is 0.95. IMPRESSION: 1. No scintigraphic evidence for ischemia. 2. Calculated LVEF 67%.
--- NOTE | 2019-07-14 17:35 | DIS ---
DATE OF ADMISSION: 07/13/2019 DATE OF DISCHARGE: 07/14/2019 DISCHARGE DIAGNOSES: 1. Left chest pain. 2. Musculoskeletal pain of the left shoulder and chest areas secondary to recent fall injury. 3. Hypertension. 4. Hyperlipidemia. 5. Diabetes mellitus. 6. Hyperlipidemia. 7. Tobacco abuse. HISTORY OF PRESENT ILLNESS: This patient is a 58-year-old male who presented initially to the emergency room in [place] complaining of some pain in his left chest area. The patient had evaluation for angina, which included a chest x-ray with some reported widened mediastinum, which apparently is chronic and several years old. He also had a right bundle branch block, which was apparently chronic and several years old at least. He had negative troponins. He was subsequently transferred to this facility. Once here, the patient reported that he had a fall and that he was under the impression himself that his pain was originally related to musculoskeletal injury related to his fall and that it was affecting his left shoulder and chest area. HOSPITAL COURSE: The patient was admitted in observation. He was maintained on telemetry with no ectopy. He had serial troponins, which were all negative. He had x-rays of the shoulder and humerus which only showed degenerative changes of the left AC joint. He then underwent a nuclear medicine stress test, which showed no evidence of ischemia and had an EF of 69%. The patient's symptoms had improved. PHYSICAL EXAMINATION: VITAL SIGNS: Temperature 98.0, pulse 58, respirations 20, O2 saturation 97% on room air, BP ranged from 121/66 to 149/72. GENERAL: He was awake and alert. HEART: Regular rate and rhythm. No murmurs. LUNGS: Clear bilaterally with no wheezes or rales. ABDOMEN: Soft, nontender, and nondistended. Positive bowel sounds. No masses. No organomegaly. EXTREMITIES: No cyanosis, clubbing, or edema. LABORATORY DATA: Of note, his total cholesterol was 197, triglycerides 216, LDL 117, HDL 37. 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 DISPOSITION: Disposition with the symptoms attributable to likely musculoskeletal injury and negative stress test, and he was felt to be stable for discharge. He will be discharged to home. He will continue his usual home medications including; 1. Gabapentin 600 b.i.d. 2. Metformin 1000 mg b.i.d. 3. Tylenol No. 3 p.r.n. 4. Coreg 12.5 mg b.i.d. 5. Lasix 20 mg daily. 6. Flexeril 10 mg t.i.d. 7. Naproxen 500 mg b.i.d. 8. Insulin glargine 60 units subcu b.i.d. 9. Additionally, he will start on atorvastatin 40 mg p.o. daily. He is to have a heart-healthy diet. ACTIVITY: As tolerated. FOLLOWUP: He is to follow up at the [facility]. He was instructed on the potential side effects of the statin drug. He is encouraged to discontinue it and follow up with his PCP should he develop any of those side effects, complications. He can return to the hospital at anytime should he find the need to do so. Job ID: [id number]
== END 2019-07-14 14:45 | disposition home or self-care (01) ==
LOC: INTOOBSV 16:02 → 2SW 16:02
PROVIDERS: ADMIT Internal Medicine; ATTEND Internal Medicine
DX: R07.89 Other chest pain (principal); M25.512 Pain in left shoulder; M79.602 Pain in left arm; I10 Essential (primary) hypertension; E78.5 Hyperlipidemia, unspecified; E11.9 Type 2 diabetes mellitus without complications; F17.210 Nicotine dependence, cigarettes, uncomplicated; I45.10 Unspecified right bundle-branch block; Z86.73 Personal history of transient ischemic attack (TIA), and cerebral infarction without residual deficits; Z79.4 Long term (current) use of insulin; Z79.899 Other long term (current) drug therapy; W19.XXXA Unspecified fall, initial encounter; Y92.009 Unspecified place in unspecified non-institutional (private) residence as the place of occurrence of the external cause
CPT/HCPCS: 36415; 36416; 78452; 80048; 80061; 85025; 93017; 94760; 96374; A9500; G0378; J0153; J1650; J1815

== ENCOUNTER 2020-04-02 13:20 | Observation (INO) | payer OTHER, SELFPAY ==
[2020-04-02 14:04] LABS: #Eosinphils 0.1 thou/uL (0.0-0.7); #Lymphocytes 2.1 thou/uL (1.20-3.40); #Monocytes 0.8 thou/uL (0.11-0.59); #Neutrophils 7.3 thou/uL (1.40-6.50); %Basophils 0.4 % (0.0-1.0); %Eosinophils 1.2 % (0.0-10.0); %Monocytes 7.8 % (0.0-10.0); %Neutrophils 70.7 % (42.0-75.0); Hemoglobin 15.9 g/dL (14.0-18.0); Mean Corpuscular HGB CONC 32.2 g/dL (32.0-36.0); Mean Corpuscular Hemoglobin 30.3 pg (27.0-31.0); Mean Corpuscular Volume 93.9 fL (78.0-98.0); Mean Platelet Volume 6.9 fL (7.4-10.4); Platelet Count 315 thou/uL (130-400); RBC Distribution Width 11.8 % (11.5-14.5); Red Blood Cell (RBC) Count 5.25 mill/uL (4.70-6.10); White Blood Cell (WBC) Count 10.3 thou/uL (4.8-10.8)
[2020-04-02 14:27] LABS: ALT (SGPT) 34 U/L (8-55); AST (SGOT) 31 U/L (5-34); Albumin 4.1 g/dL (3.5-5.0); Alkaline Phosphatase 86 U/L (40-110); Anion Gap 15 mmol/L (10-20); BUN (Urea Nitrogen) 7 mg/dL (8.4-25.7); Bilirubin, Total 0.3 mg/dL (0.2-1.2); CK (CPK) 26 U/L (30-200); Calc. Creatinine Clearance 0 mL/min (70-130); Calcium 9.5 mg/dL (7.8-10.44); Carbon Dioxide 28 mmol/L (22-29); Chloride 99 mmol/L (98-107); Estimated GFR-MDRD 79; Globulin 3.6 g/dL (2.4-3.5); Glucose 66 mg/dL (70-105); Protein, Total 7.7 g/dL (6.0-8.3); Sodium 138 mmol/L (136-145)
--- NOTE | 2020-04-02 14:48 | CT ---
Exam: Head CT without contrast HISTORY: Left sided intermittent chest pain. Headache. COMPARISON: 03/04/2019 FINDINGS: Hemorrhage: No intraparenchymal hemorrhage or extra-axial hematoma. Brain parenchyma: With the exception of the right frontal lobe, near the vertex, cortical christopher-white matter differentiation is preserved. There are stable hypodensities in the right centrum semiovale and cortes radiata.No mass effect or midline shift. Basilar cisterns are patent. Ventricular system: Ventricles and sulci are patent and symmetric. Calvarium: Intact. Sinuses and mastoid air cells: Adequate aeration. IMPRESSION: 1. No acute intracranial process. 2. Stable changes in the right cerebrum
[2020-04-02] MEDS ORDERED: Aspirin Chewable 81 MG TAB ONE ×2 (15:16→15:17)
[2020-04-02 15:34] LABS: Bilirubin Negative (Negative); Blood, Urine Negative (Negative); Clarity Clear (Clear); Glucose, Urine (Dipstick) Normal (Negative); Leukocyte Negative Leu/uL (Negative); Nitrite Negative (Negative); Protein, Urine (Dipstick) Negative (Neg-Trace); Urobilinogen Normal mg/dL (Less than 2)
--- NOTE | 2020-04-02 15:53 | RAD ---
CHEST ONE VIEW: 04/02/20 HISTORY: Chest pain. COMPARISON: Radiograph 07/13/19. FINDINGS: Incidental note is made of a azygos fissure. Large bilateral pericardiophrenic fat pads. Heart size upper limits of normal. Pulmonary arteries are mildly distended. No acute osseous abnormality. IMPRESSION: No acute intrathoracic abnormality. POS: [facility]
[2020-04-02] MEDS ORDERED: Bisacodyl 10 MG SUPP PR PRN (18:24)
[2020-04-02] MEDS ORDERED: Senokot S 8.6-50 MG TAB PO PRN (18:24)
[2020-04-02] MEDS ORDERED: Nitroglycerin 0.4 MG TAB (25 Tab Bottle) PO PRN (18:24)
[2020-04-02] MEDS ORDERED: Dextrose 50% Abboject 50 ML SYRINGE SLOW IVP PRN (18:24)
[2020-04-02] MEDS ORDERED: Guaifenesin DM 100-10/5 ML UDCUP PO PRN (18:24)
[2020-04-02] MEDS ORDERED: Dextrose 5% in Water 1,000 ML IV PRN (18:24)
[2020-04-02] MEDS ORDERED: Cyclobenzaprine 10 MG TAB PO PRN (18:24)
[2020-04-02] MEDS ORDERED: Acetaminophen/Codeine 30-300mg Tablet PO PRN (18:24)
[2020-04-02] MEDS ORDERED: Acetaminophen 325 MG TAB PO PRN (18:24)
[2020-04-02] MEDS ORDERED: Ondansetron PF 4 MG/2 ML Vial IVP PRN ×2 (18:24→19:05)
[2020-04-02] MEDS ORDERED: HumaLOG 300 UNITS/3 ML VIAL SC PRN ×2 (18:24)
[2020-04-02] MEDS ORDERED: Ondansetron ODT 4 MG TAB SL PRN (19:05)
[2020-04-02 19:56] VITALS: BMI 38.9
[2020-04-02 20:33] LABS: Troponin I 0.022 ng/mL (< 0.028)
[2020-04-02] MEDS ORDERED: Non-Formulary Item 1 EACH (Insulin Glargine,Hum.Rec.Anlog [Basaglar Kwikpen U-100] 10 UNI SQ SCH (21:00)
--- NOTE | 2020-04-02 21:26 | HP ---
REASON FOR ADMISSION: Chest pain. HISTORY OF PRESENTING ILLNESS: The patient gives history of waking up with headache and feeling dizzy at around 5:00 a.m. Later, he started developing left-sided retrosternal chest pain off and on. Each time, the episode would last 5 minutes and it would come back after 15 minutes. He finally called his primary care physician, Dr. Lang, who in fact told him to call EMS and come here. In the EMS, the patient received four tablets of 81 mg aspirin and sublingual nitroglycerin, which relieved his pain. Currently, he is fully pain-free. No complaints of cough or expectoration. No complaints of fever. No complaints of shortness of breath. The patient has prior history of mechanical thrombectomy done for CVA and a cardiac arrest as well two years back. No complaints of any specific weakness at present. PAST MEDICAL AND SURGICAL HISTORY: History of cardiac arrest x2 two years back. He has had left-sided hemiparesis with mechanical thrombectomy done 2 years back in [place]. Dyslipidemia; hypertension; diabetes mellitus, type 2; peripheral neuropathy; history of colon cancer with polyps removed in 2018; and chronic back pain. CURRENT MEDICATIONS: The patient takes, 1. Lantus 32 units subcu twice daily. 2. Carvedilol 12.5 mg twice daily. 3. Atorvastatin 40 mg daily. 4. Lasix 80 mg p.o. daily. 5. Aspirin 81 mg p.o. daily. 6. Cyclobenzaprine 10 mg at bedtime p.r.n. for spasms and back pain. 7. Gabapentin 600 mg twice daily. 8. Metformin 1000 mg twice daily. ALLERGIES: NO KNOWN DRUG ALLERGIES. PERSONAL HISTORY: Smokes half pack a day. Does not abuse alcohol or drugs. Lives with his . He is disabled for last 5 years. FAMILY HISTORY: Mother at the age of 57, she in her sleep from unknown cause. Father of colon cancer and its complications at the age of 78 years. The patient ambulates with a walker. CODE STATUS: Full. Power of attorney law clerk is his . REVIEW OF SYSTEMS: CONSTITUTIONAL: Negative for weight loss or gain, ability to conduct usual activities. SKIN: Negative for rash, itching. EYES: Negative for double vision, pain. ENT/MOUTH: Negative for nose bleeding, neck stiffness, pain, tenderness. CARDIOVASCULAR: Negative for palpitations, dyspnea on exertion, orthopnea. RESPIRATORY: Negative for shortness of breath, wheezing, cough, hemoptysis, fever or night sweats. GASTROINTESTINAL: Negative for poor appetite, abdominal pain, heartburn, nausea, vomiting, constipation, or diarrhea. GENITOURINARY: Negative for urgency, frequency, dysuria, nocturia. MUSCULOSKELETAL: Negative for pain, swelling. NEUROLOGIC/PSYCHIATRIC: Negative for anxiety, depression. ALLERGY/IMMUNOLOGIC: Negative for skin rash, bleeding tendency. PHYSICAL EXAMINATION: GENERAL: The patient is a 59-year-old male, who is currently not in any acute distress. VITAL SIGNS: Blood pressure 130/84, pulse 90 per minute, respiratory rate 20 per minute, temperature 98.4 degrees Fahrenheit, and saturating 96% on room air. NECK: Supple. No elevated JVD. HEENT: Eyes; extraocular muscles intact. Pupils reacting to light. Oral cavity, mucous membranes are moist. No exudates or congestion. CARDIOVASCULAR SYSTEM: S1 and S2 heard. Regular rhythm. RESPIRATORY SYSTEM: Air entry 1+ bilateral. Scattered rhonchi plus no rales or wheezes. ABDOMEN: Soft. Bowel sounds heard. No tenderness, rigidity, or guarding. EXTREMITIES: No peripheral edema or calf tenderness. VASCULAR SYSTEM: Peripheral pulses 2+ bilateral. No ischemic ulcers or gangrene. CENTRAL NERVOUS SYSTEM: No gross focal deficits noted. The patient is alert, awake, oriented well. PSYCHIATRIC: The patient's mood is euthymic. No hallucinations or delusions. IMAGING DATA: Chest x-ray done shows no acute cardiopulmonary abnormality. CT brain without contrast done shows no acute intracranial process. LABORATORY DATA: Troponin x2 is negative. BNP 16, albumin is 4.1, lipase is 26, serum glucose 66, repeat fingerstick glucose is 148, BUN 7, and creatinine 0.9. Electrolytes stable. White count of 10, H and H of 15 and 49, platelet count 315 with 70% neutrophils. EKG done shows sinus rhythm at 89 beats per minute. CLINICAL IMPRESSION AND PLAN: The patient will be under observation on telemetry for chest pain, rule out acute coronary syndrome. He has had prior history of mechanical thrombectomy with stroke and left hemiparesis in the last 2 years. He has also had cardiac arrest x2. In view of multiple risk factors, we will obtain a nuclear stress test in the morning. We will also obtain echo with 2D Doppler for LV function in view of prior cardiac arrest. We will continue his aspirin, Coreg, Lipitor, gabapentin, and Lantus at 10 units subcu twice daily. Lipid profile in the morning. We will continue to closely monitor him on telemetry. Job ID: [id number]
[2020-04-02] MEDS: Gabapentin 300 MG CAP PO SCH (21:49)
[2020-04-02] MEDS: Famotidine 20 MG TAB PO SCH (21:49)
[2020-04-02] MEDS: Insulin Glargine 10 UNITS in Pre-Filled Syringe 1 EACH SC SCH (21:50)
[2020-04-03 04:42] LABS: #Basophils 0.1 thou/uL (0.0-0.2); #Eosinphils 0.1 thou/uL (0.0-0.7); #Lymphocytes 2.1 thou/uL (1.20-3.40); #Monocytes 0.8 thou/uL (0.11-0.59); #Neutrophils 6.5 thou/uL (1.40-6.50); %Basophils 0.6 % (0.0-1.0); %Eosinophils 1.4 % (0.0-10.0); %Lymphocytes 21.9 % (21.0-51.0); %Monocytes 8.7 % (0.0-10.0); %Neutrophils 67.4 % (42.0-75.0); Hemoglobin 15.7 g/dL (14.0-18.0); Mean Corpuscular HGB CONC 32.8 g/dL (32.0-36.0); Mean Corpuscular Volume 94.6 fL (78.0-98.0); Platelet Count 283 thou/uL (130-400); RBC Distribution Width 11.8 % (11.5-14.5); Red Blood Cell (RBC) Count 5.05 mill/uL (4.70-6.10); White Blood Cell (WBC) Count 9.6 thou/uL (4.8-10.8)
[2020-04-03 05:06] LABS: Anion Gap 12 mmol/L (10-20); BUN (Urea Nitrogen) 8 mg/dL (8.4-25.7); Calc. Creatinine Clearance 135 mL/min (70-130); Calcium 9.5 mg/dL (7.8-10.44); Carbon Dioxide 32 mmol/L (22-29); Cardiac Risk 4.7 (Less than 4.5); Chloride 98 mmol/L (98-107); Cholesterol 196 mg/dl (< 200 Desired); Estimated GFR-MDRD 86; Glucose 110 mg/dL (70-105); HDL Cholesterol 42 mg/dL (>60 Neg Risk); LDL Cholesterol, Calculated 131 mg/dL; Potassium 3.8 mmol/L (3.5-5.1); Sodium 138 mmol/L (136-145); Triglycerides 114 mg/dL (Less than 150)
[2020-04-03] MEDS ORDERED: Carvedilol 6.25 MG TAB PO SCH (08:00)
[2020-04-03] MEDS ORDERED: Enoxaparin Sodium 40 MG/0.4 ML SYRINGE SC SCH (09:00)
[2020-04-03] MEDS ORDERED: Aspirin 325 mg Enteric Coated Tablet PO SCH (09:00)
[2020-04-03] MEDS ORDERED: Regadenoson 0.4 MG/5 ML SYRINGE ONE (09:16)
[2020-04-03 11:34] VITALS: BP 142/83; TEMP 97.8
--- NOTE | 2020-04-03 11:37 | NM ---
Radionucleotide stress only myocardial perfusion scan with CT attenuation correction and SPECT imagin g HISTORY: Chest pain. Hypertension. FINDINGS: Lexiscan protocol. There is homogeneous uptake of radiotracer throughout the left ventricul ar myocardium on the stress images. No focal perfusion defect. QGS analysis of gated SPECT images shows some diminished motion of the septum. Left ventricular eject ion fraction calculated at 63%. IMPRESSION : No evidence of ischemia. Preserved LVEF.
[2020-04-03] MEDS: Famotidine 20 MG TAB PO SCH (11:45)
[2020-04-03] MEDS: Atorvastatin Calcium 40 MG TAB PO SCH (11:45)
[2020-04-03] MEDS: Gabapentin 300 MG CAP PO SCH (11:47)
[2020-04-03] MEDS ORDERED: Insulin Glargine 10 UNITS in Pre-Filled Syringe 1 EACH SC SCH (12:00)
[2020-04-03] MEDS: Insulin Glargine 10 UNITS in Pre-Filled Syringe 1 EACH SC SCH (12:52)
--- NOTE | 2020-04-04 03:15 | DIS ---
DATE OF ADMISSION: 04/02/2020 DATE OF DISCHARGE: 04/03/2020 DISCHARGE DISPOSITION: To home. PRIMARY DISCHARGE DIAGNOSIS: Chest pain, which is noncardiac. SECONDARY DISCHARGE DIAGNOSES: Hypertension; history of prior cardiac arrest x2 in 2018; history of cerebrovascular accident with mechanical thrombectomy done and left-sided hemiparesis two years back; diabetes mellitus, type 2; and history of colon cancer with polyps removed in 2018. PROCEDURES DONE DURING HOSPITALIZATION: Chest x-ray done showed no acute cardiopulmonary abnormality. CT brain showed no acute intracranial process. Nuclear stress test showed no evidence of reversible ischemia. Ejection fraction is 63%. Echo with 2D Doppler shows EF of 50% to 55%. H and H 15 and 47, platelet count 283, and MCV is 94. BUN 8 and creatinine 0.9. Total cholesterol 196, triglycerides 114, LDL 131, and HDL 42. Troponin x3 negative. BNP 16. DISCHARGE MEDICATION: 1. Aspirin 81 mg p.o. daily. 2. Coreg 12.5 mg twice daily. 3. Flexeril 10 mg p.o. 3 times daily p.r.n. 4. Lasix 20 mg daily. 5. Gabapentin 600 mg twice daily. 6. Lantus 32 units subcu twice daily. 7. Triamterene with hydrochlorothiazide 75/50 mg one tab q.a.m. 8. Atorvastatin 40 mg p.o. daily. 9. Metformin 1000 mg twice daily. ALLERGIES: NO KNOWN DRUG ALLERGIES. DISCHARGE PLAN: Patient is to follow up with his primary care physician, Jessi Avitia PA-C, in 1 week. BRIEF COURSE DURING HOSPITALIZATION: Patient initially came in with complaints of chest pain, which was left-sided, which was coming off and on every 15 minutes, lasting for 5 minutes. This pain also got relieved with 325 mg of aspirin and sublingual nitroglycerin by EMS. In view of multiple risk factors for ACS, patient was placed under observation on telemetry. He has had 3 sets of troponin done, which were negative. Nuclear stress test done was negative for any reversible ischemia. Echo with 2D Doppler showed good ejection fraction. Patient remained hemodynamically stable and is being discharged home. Please note, I have seen and examined the patient on the day of discharge. Job ID: [id number]
--- NOTE | 2020-04-11 13:01 | EKG ---
Test Reason : Blood Pressure : / mmHG Vent. Rate : 089 BPM Atrial Rate : 089 BPM P-R Int : 166 ms QRS Dur : 124 ms QT Int : 382 ms P-R-T Axes : 257 -22 017 degrees QTc Int : 464 ms Unusual P axis, possible ectopic atrial rhythm RSR' or QR pattern in V1 suggests right ventricular conduction delay Abnormal ECG Confirmed by ABNER MEDELLIN DO ([id number]), news videotape editor MIKI DRAPER ([id number] on 04/11/2020 1:00:37 PM Referred By: Confirmed By:ABNER MEDELLIN DO
== END 2020-04-03 13:45 | disposition home or self-care (01) ==
LOC: ERS 13:20 → 2NO 17:00
PROVIDERS: ADMIT Internal Medicine; ATTEND Internal Medicine
DX: R07.89 Other chest pain (principal); E78.5 Hyperlipidemia, unspecified; I10 Essential (primary) hypertension; E11.42 Type 2 diabetes mellitus with diabetic polyneuropathy; G89.29 Other chronic pain; M54.9 Dorsalgia, unspecified; F17.210 Nicotine dependence, cigarettes, uncomplicated; I69.354 Hemiplegia and hemiparesis following cerebral infarction affecting left non-dominant side; Z86.74 Personal history of sudden cardiac arrest; Z79.4 Long term (current) use of insulin; Z79.82 Long term (current) use of aspirin; Z79.899 Other long term (current) drug therapy
CPT/HCPCS: 36415; 36416; 70450; 71045; 78452; 80048; 80053; 80061; 81003; 82550; 83690; 83880; 84484; 85025; 93005; 93017; 93306; 94760; 96372; A9500; G0378; J1650; J1815; J2785

== ENCOUNTER 2022-05-06 14:00 | Observation (INO) | payer OTHER ==
[2022-05-06 14:41] LABS: #Basophils 0.1 thou/uL (0.0-0.2); #Eosinphils 0.1 thou/uL (0.0-0.7); #Lymphocytes 1.9 thou/uL (1.20-3.40); #Monocytes 0.6 thou/uL (0.11-0.59); #Neutrophils 6.8 thou/uL (1.40-6.50); %Basophils 0.9 % (0.0-1.0); %Eosinophils 1.3 % (0.0-10.0); %Lymphocytes 19.9 % (21.0-51.0); %Monocytes 6.6 % (0.0-10.0); %Neutrophils 71.3 % (42.0-75.0); Hemoglobin 15.6 g/dL (14.0-18.0); Mean Corpuscular Hemoglobin 31.8 pg (27.0-31.0); Mean Corpuscular Volume 96.3 fL (78.0-98.0); Mean Platelet Volume 6.7 fL (7.4-10.4); Platelet Count 220 thou/uL (130-400); RBC Distribution Width 11.6 % (11.5-14.5); White Blood Cell (WBC) Count 9.5 thou/uL (4.8-10.8)
[2022-05-06 15:10] LABS: ALT (SGPT) 24 U/L (8-55); AST (SGOT) 33 U/L (5-34); Alkaline Phosphatase 86 U/L (40-110); Anion Gap 17 mmol/L (10-20); BUN (Urea Nitrogen) 7 mg/dL (8.4-25.7); Bilirubin, Total 0.7 mg/dL (0.2-1.2); Calc. Creatinine Clearance 0 mL/min (70-130); Carbon Dioxide 25 mmol/L (23-31); Chloride 98 mmol/L (98-107); Estimated GFR 99; Globulin 3.3 g/dL (2.4-3.5); Glucose 115 mg/dL (80-115); Lipase 74 U/L (8-78); Potassium 3.7 mmol/L (3.5-5.1); Protein, Total 7.3 g/dL (5.8-8.1); Sodium 136 mmol/L (136-145)
[2022-05-06] MEDS ORDERED: Dextrose 50% Abboject 50 ML SYRINGE SLOW IVP PRN (16:29)
[2022-05-06] MEDS ORDERED: Dextrose 5% in Water 1,000 ML IV PRN (16:29)
[2022-05-06] MEDS ORDERED: HumaLOG 300 UNITS/3 ML VIAL SC PRN (16:29)
[2022-05-06] MEDS ORDERED: Aspirin 325 MG TAB PO SCH (16:30)
[2022-05-06] MEDS ORDERED: Aspirin Chewable 81 MG TAB ONE (16:38)
[2022-05-06] MEDS ORDERED: Nitroglycerin 2% Ointment 1 INCH/1 GM Packet ONE (17:00)
[2022-05-06 17:26] LABS: Troponin I 0.012 ng/mL (< 0.028)
[2022-05-06 17:40] LABS: Magnesium 2.1 mg/dL (1.6-2.6)
[2022-05-06] MEDS ORDERED: Nicotine 14 MG PATCH TD SCH (18:00)
[2022-05-06 19:19] VITALS: BMI 37.1
[2022-05-06] MEDS: Carvedilol 6.25 MG TAB PO SCH (19:30)
[2022-05-06] MEDS: Gabapentin 300 MG CAP PO SCH (19:30)
[2022-05-06 20:41] LABS: Troponin I Less than 0.010 ng/mL (< 0.028)
[2022-05-07] MEDS ORDERED: Nitroglycerin 0.4 MG TAB (25 Tab Bottle) SL PRN (08:03)
[2022-05-07] MEDS ORDERED: Atorvastatin Calcium 40 MG TAB PO SCH (09:00)
[2022-05-07] MEDS ORDERED: Aspirin Chewable 81 MG TAB PO SCH (09:00)
[2022-05-07] MEDS ORDERED: Aspirin 81 mg Enteric Coated Tablet PO SCH (09:00)
[2022-05-07] MEDS: Carvedilol 6.25 MG TAB PO SCH (11:55)
[2022-05-07] MEDS: Gabapentin 300 MG CAP PO SCH (11:55)
[2022-05-07] MEDS ORDERED: HumaLOG 300 UNITS/3 ML VIAL SC PRN ×2 (12:39)
[2022-05-07] MEDS ORDERED: ADENOSINE 60 MG/20 ML VIAL ONE (13:02)
[2022-05-07 15:20] VITALS: BP 149/71; TEMP 97.7
[2022-05-07] MEDS ORDERED: Cyclobenzaprine 10 MG TAB PO PRN (15:44)
[2022-05-07] MEDS ORDERED: Nicotine 14 MG PATCH TD PRN (15:45)
== END 2022-05-07 17:50 | disposition home or self-care (01) ==
LOC: ERS 14:00 → 2SW 16:27
PROVIDERS: ADMIT Internal Medicine; ATTEND Internal Medicine
DX: R07.89 Other chest pain (principal); R06.02 Shortness of breath; I11.9 Hypertensive heart disease without heart failure; E11.42 Type 2 diabetes mellitus with diabetic polyneuropathy; I69.354 Hemiplegia and hemiparesis following cerebral infarction affecting left non-dominant side; F10.11 Alcohol abuse, in remission; F17.210 Nicotine dependence, cigarettes, uncomplicated; E78.5 Hyperlipidemia, unspecified; I25.2 Old myocardial infarction; I45.10 Unspecified right bundle-branch block; I08.8 Other rheumatic multiple valve diseases; Z79.4 Long term (current) use of insulin; Z79.82 Long term (current) use of aspirin; Z79.84 Long term (current) use of oral hypoglycemic drugs; Z79.899 Other long term (current) drug therapy; Z20.822 Contact with and (suspected) exposure to COVID-19
CPT/HCPCS: 36415; 36416; 71045; 78452; 80053; 83690; 83735; 83880; 84443; 84484; 85025; 93005; 93017; 93306; 94760; A9500; G0378; J0153; J1815; U0003; U0005

== ENCOUNTER 2024-08-03 15:58 | Inpatient (IN) | payer OTHER, SELFPAY ==
[~2024-08-03 15:58] MED LIST: Iopamidol-370 76% 500 ML MDV (1 ML CHARGE) ONE
[2024-08-03 16:26] LABS: Actual Bicarbonate (HCO3v) 28.1 mEq/L (22-28); Analyzer IN Cardio ER; Base Excess 4.3 mEq/L (-2.0 to +3.0); Calcium, Ionized (venous) 1.06 mmol/L (1.16-1.32); Chloride (VBG) 99 mmol/L (98-106); Hematocrit-VBG 48 % (42.0-52.0); Hemoglobin (Hb) 16.2 g/dL (13.1-17.2); Potassium (VBG) 3.84 mmol/L (3.70-5.30); Sodium 139 mmol/L (133-146); pH (venous) 7.475 (7.32-7.43)
[2024-08-03 16:28] LABS: #Basophils 0.03 10x3/uL (0.0-0.2); %Basophils 0.3 % (0.0-1.0); %Eosinophils 1.5 % (0.0-10.0); %Monocytes 5.9 % (0.0-10.0); Hemoglobin 15.1 g/dL (14.0-18.0); Mean Corpuscular HGB CONC 34.3 g/dL (32.0-36.0); Mean Corpuscular Hemoglobin 31.6 pg (27.0-31.0); Mean Corpuscular Volume 92.1 fL (78.0-98.0); Mean Platelet Volume 8.6 fL (7.4-10.4); Platelet Count 234 10x3/uL (130-400); RBC Distribution Width 11.9 % (11.5-14.5); Red Blood Cell (RBC) Count 4.78 mill/uL (4.70-6.10)
[2024-08-03 16:49] LABS: ALT (SGPT) 13 U/L (8-55); AST (SGOT) 12 U/L (5-34); Albumin 3.5 g/dL (3.4-4.8); Alkaline Phosphatase 87 U/L (40-110); Anion Gap 16 mmol/L (10-20); BUN (Urea Nitrogen) 4 mg/dL (8.4-25.7); Bilirubin, Total 0.7 mg/dL (0.2-1.2); Calc. Creatinine Clearance 0 mL/min (70-130); Calcium 9.1 mg/dL (7.8-10.44); Carbon Dioxide 24 mmol/L (23-31); Chloride 103 mmol/L (98-107); Estimated GFR 97; Globulin 3.2 g/dL (2.4-3.5); Glucose 91 mg/dL (80-115); Lipase 11 U/L (8-78); Protein, Total 6.7 g/dL (5.8-8.1); Sodium 139 mmol/L (136-145)
[2024-08-03 16:53] LABS: Troponin I 0.019 ng/mL (< 0.028)
[2024-08-03] MEDS ORDERED: Aspirin Chewable 81 MG TAB ONE (17:36)
[2024-08-03 18:00] LABS: Magnesium 1.7 mg/dL (1.6-2.6)
[2024-08-03] MEDS ORDERED: Nitroglycerin 0.4 MG TAB (25 Tab Bottle) SL PRN (19:20)
[2024-08-03] MEDS ORDERED: Acetaminophen 325 MG TAB PO PRN (19:20)
[2024-08-03] MEDS ORDERED: Ondansetron PF 4 MG/2 ML Vial IVP PRN (19:20)
[2024-08-03] MEDS ORDERED: Acetaminophen 650 MG Suppository PR PRN (19:20)
[2024-08-03] MEDS ORDERED: Ondansetron ODT 4 MG TAB PO PRN (19:20)
[2024-08-03] MEDS ORDERED: hydrALAZINE 20 MG/ML VIAL SLOW IVP PRN (19:26)
[2024-08-03] MEDS ORDERED: Dextrose 50% Abboject 50 ML SYRINGE SLOW IVP PRN (19:46)
[2024-08-03] MEDS ORDERED: Insulin Lispro 100 UNIT/ML 10 ML VIAL SC PRN ×2 (19:46)
[2024-08-03] MEDS ORDERED: Glucagon 1 MG/ML KIT IM PRN (19:46)
[2024-08-03] MEDS ORDERED: Dextrose 5% in Water 1,000 ML IV PRN (19:46)
[2024-08-03 20:17] LABS: Bacteria/HPF None Seen HPF (None Seen); Bilirubin Negative (Negative); Blood, Urine Negative (Negative); CAUTI Indications for Culture Immunosuppressed; Clarity Clear (Clear); Glucose, Urine (Dipstick) Normal (Negative); Ketone, Urine Negative (Negative); Leukocyte Negative Leu/uL (Negative); Nitrite Negative (Negative); Protein, Urine (Dipstick) Negative (Neg-Trace); RBC/HPF 0-3 HPF (0-3); Specific Gravity, Urine 1.025 (1.002-1.036); Squamous Epithelial None Seen HPF (0-3); Urobilinogen 3 mg/dL (Less than 2); WBC/HPF 0-3 HPF (0-3); pH, Urine 7.5 (5.0-9.0)
[2024-08-03 20:19] LABS: Urine Culture Reflex No No; Urine Culture Reflex Yes Yes
[2024-08-03 20:52] LABS: Troponin I 0.028 ng/mL (< 0.028)
[2024-08-03 21:46] VITALS: BMI 34.4
[2024-08-04 00:19] LABS: Troponin I Less than 0.010 ng/mL (< 0.028)
[2024-08-04 06:54] LABS: #Basophils 0.03 10x3/uL (0.0-0.2); %Basophils 0.4 % (0.0-1.0); %Eosinophils 2.4 % (0.0-10.0); %Lymphocytes 20.6 % (21.0-51.0); %Monocytes 6.6 % (0.0-10.0); %Neutrophils 69.8 % (42.0-75.0); Hematocrit 43.1 % (42.0-52.0); Hemoglobin 14.5 g/dL (14.0-18.0); Mean Corpuscular HGB CONC 33.6 g/dL (32.0-36.0); Mean Corpuscular Hemoglobin 31.5 pg (27.0-31.0); Mean Corpuscular Volume 93.5 fL (78.0-98.0); Mean Platelet Volume 8.6 fL (7.4-10.4); Platelet Count 239 10x3/uL (130-400); Red Blood Cell (RBC) Count 4.61 mill/uL (4.70-6.10)
[2024-08-04 07:07] LABS: Anion Gap 13 mmol/L (10-20); BUN (Urea Nitrogen) 5 mg/dL (8.4-25.7); Calc. Creatinine Clearance 143 mL/min (70-130); Carbon Dioxide 27 mmol/L (23-31); Cardiac Risk 3.3 (Less than 4.5); Chloride 102 mmol/L (98-107); Cholesterol 103 mg/dl (< 200 Desired); Estimated GFR 100; Glucose 97 mg/dL (80-115); HDL Cholesterol 31 mg/dL (>60 Neg Risk); LDL Cholesterol, Calculated 58 mg/dL; Potassium 3.9 mmol/L (3.5-5.1); Sodium 138 mmol/L (136-145); Triglycerides 72 mg/dL (Less than 150)
[2024-08-04] MEDS: Aspirin Chewable 81 MG TAB PO SCH (08:29)
[2024-08-04] MEDS: Aspirin 81 mg Enteric Coated Tablet PO SCH (08:30)
[2024-08-04] MEDS ORDERED: traMADol HCl 50 MG TAB PO PRN (09:16)
[2024-08-04] MEDS ORDERED: Non-Formulary Item 1 EACH (Gabapentin [Neurontin] 600 MG Tablet) PO PRN (09:16)
[2024-08-04] MEDS ORDERED: Gabapentin 400 MG CAP PO PRN (09:34)
[2024-08-04] MEDS: hydrALAZINE 20 MG/ML VIAL SLOW IVP PRN (10:16)
[2024-08-04] MEDS: Hydrochlorothiazide 25 MG TAB PO SCH (15:35)
[2024-08-04] MEDS: metFORMIN 500 MG TAB PO SCH (17:14)
[2024-08-04] MEDS: Losartan 25 MG TAB PO SCH (19:48)
[2024-08-04] MEDS: Amitriptyline HCl 10 MG TAB PO SCH (19:49)
[2024-08-04] MEDS ORDERED: Losartan 25 MG TAB PO SCH (21:00)
[2024-08-05 05:35] LABS: #Basophils 0.04 10x3/uL (0.0-0.2); %Basophils 0.4 % (0.0-1.0); %Lymphocytes 18.2 % (21.0-51.0); %Monocytes 6.6 % (0.0-10.0); %Neutrophils 72.4 % (42.0-75.0); Hematocrit 48.9 % (42.0-52.0); Hemoglobin 16.6 g/dL (14.0-18.0); Mean Corpuscular HGB CONC 33.9 g/dL (32.0-36.0); Mean Corpuscular Volume 91.2 fL (78.0-98.0); Mean Platelet Volume 8.8 fL (7.4-10.4); Platelet Count 284 10x3/uL (130-400); RBC Distribution Width 12.1 % (11.5-14.5); Red Blood Cell (RBC) Count 5.36 mill/uL (4.70-6.10)
[2024-08-05 05:43] LABS: ALT (SGPT) 11 U/L (8-55); AST (SGOT) 12 U/L (5-34); Albumin 3.5 g/dL (3.4-4.8); Alkaline Phosphatase 87 U/L (40-110); Anion Gap 15 mmol/L (10-20); BUN (Urea Nitrogen) 6 mg/dL (8.4-25.7); Bilirubin, Total 0.7 mg/dL (0.2-1.2); Calc. Creatinine Clearance 143 mL/min (70-130); Calcium 9.8 mg/dL (7.8-10.44); Carbon Dioxide 24 mmol/L (23-31); Chloride 100 mmol/L (98-107); Estimated GFR 100; Globulin 4.2 g/dL (2.4-3.5); Glucose 120 mg/dL (80-115); Protein, Total 7.7 g/dL (5.8-8.1); Sodium 135 mmol/L (136-145)
[2024-08-05] MEDS ORDERED: Rosuvastatin 10 MG TAB PO SCH (09:00)
[2024-08-05] MEDS: Rosuvastatin 10 MG TAB PO SCH (10:19)
[2024-08-05] MEDS: Clopidogrel Bisulfate 75 MG TAB PO SCH (10:20)
[2024-08-06 04:42] LABS: #Basophils 0.04 10x3/uL (0.0-0.2); %Basophils 0.4 % (0.0-1.0); %Eosinophils 1.8 % (0.0-10.0); %Lymphocytes 21.6 % (21.0-51.0); %Monocytes 7.9 % (0.0-10.0); Hematocrit 50.8 % (42.0-52.0); Hemoglobin 17.4 g/dL (14.0-18.0); Mean Corpuscular HGB CONC 34.3 g/dL (32.0-36.0); Mean Corpuscular Volume 90.4 fL (78.0-98.0); Mean Platelet Volume 9.7 fL (7.4-10.4); Platelet Count 247 10x3/uL (130-400); RBC Distribution Width 12.3 % (11.5-14.5); Red Blood Cell (RBC) Count 5.62 mill/uL (4.70-6.10)
[2024-08-06 04:50] LABS: Anion Gap 15 mmol/L (10-20); BUN (Urea Nitrogen) 10 mg/dL (8.4-25.7); Calc. Creatinine Clearance 134 mL/min (70-130); Calcium 9.8 mg/dL (7.8-10.44); Carbon Dioxide 24 mmol/L (23-31); Chloride 100 mmol/L (98-107); Estimated GFR 98; Glucose 132 mg/dL (80-115); Potassium 3.8 mmol/L (3.5-5.1); Sodium 135 mmol/L (136-145)
[2024-08-06 15:26] VITALS: BP 154/57; TEMP 97.9
== END 2024-08-06 15:07 | disposition home or self-care (01) | DRG 948 ==
LOC: ERS 15:58 → 2NO 19:11 → OBSVTOIN 08-06 09:15
PROVIDERS: ADMIT Student in an Organized Health Care Education/Training Program; ATTEND Hospitalist
DX: R53.1 Weakness (principal); R07.89 Other chest pain; I73.9 Peripheral vascular disease, unspecified; I65.21 Occlusion and stenosis of right carotid artery; I10 Essential (primary) hypertension; E78.5 Hyperlipidemia, unspecified; F17.210 Nicotine dependence, cigarettes, uncomplicated; Z86.73 Personal history of transient ischemic attack (TIA), and cerebral infarction without residual deficits
CPT/HCPCS: 36415; 36416; 70496; 70498; 70551; 71045; 80048; 80053; 80061; 81001; 82010; 82805; 83690; 83735; 83880; 84484; 85025; 87086; 87428; 93005; 93306; 96374; 96376; G0378; J0360; Q9967

== ENCOUNTER 2025-06-01 10:53 | Emergency (ER) | payer MEDICARE, MEDICAID ==
[~2025-06-01 10:53] MED LIST changes: +Iopamidol 370 76% 100 ML VIAL ONE; -Iopamidol-370 76% 500 ML MDV (1 ML CHARGE) ONE
[2025-06-01 11:36] LABS: #Basophils Less than 0.03 10x3/uL (0.0-0.2); #Eosinophils 0.10 10x3/uL (0.0-0.7); #Monocytes 0.71 10x3/uL (0.11-0.59); #Neutrophils 5.21 10x3/uL (1.40-6.50); %Basophils 0.3 % (0.0-1.0); %Eosinophils 1.4 % (0.0-10.0); %Lymphocytes 17.4 % (21.0-51.0); %Monocytes 9.7 % (0.0-10.0); %Neutrophils 70.8 % (42.0-75.0); Hematocrit 41.2 % (42.0-52.0); Hemoglobin 13.2 g/dL (14.0-18.0); Mean Corpuscular Hemoglobin 28.4 pg (27.0-31.0); Mean Corpuscular Volume 88.6 fL (78.0-98.0); Platelet Count 216 10x3/uL (130-400); Red Blood Cell (RBC) Count 4.65 mill/uL (4.70-6.10); White Blood Cell (WBC) Count 7.35 10x3/uL (4.8-10.8)
[2025-06-01 12:01] LABS: ALT (SGPT) 7 U/L (Less than 45); AST (SGOT) 13 U/L (11-34); Albumin 3.9 g/dL (3.1-4.5); Alkaline Phosphatase 100 U/L (40-110); Anion Gap 17 mmol/L (10-20); BUN (Urea Nitrogen) 12 mg/dL (8.4-25.7); Bilirubin, Total 0.4 mg/dL (0.3-1.2); Calc. Creatinine Clearance 0 mL/min (70-130); Calcium 8.8 mg/dL (7.8-10.44); Carbon Dioxide 25 mmol/L (23-31); Chloride 105 mmol/L (98-107); Globulin 3.7 g/dL (2.4-3.5); Glucose 172 mg/dL (80-115); Potassium 3.9 mmol/L (3.5-5.1); Sodium 143 mmol/L (136-145)
[2025-06-01 12:05] LABS: Troponin I 0.017 ng/mL (< 0.028)
[2025-06-01 13:05] LABS: Bacteria/HPF None Seen HPF (None Seen); CAUTI Indications for Culture Dysuria,urgency,freq; Glucose, Urine (Dipstick) Greater than 1000 mg/dL (Negative); Leukocyte Negative Leu/uL (Negative); Protein, Urine (Dipstick) Negative (Neg-Trace); RBC/HPF 0-3 HPF (0-3); Specific Gravity, Urine 1.023 (1.002-1.036); WBC/HPF 0-3 HPF (0-3)
[2025-06-01 13:07] LABS: Urine Culture Reflex No No
== END 2025-06-01 15:20 | disposition home or self-care (01) ==
LOC: ERS 10:53
DX: J18.9 Pneumonia, unspecified organism (principal); E11.9 Type 2 diabetes mellitus without complications; I10 Essential (primary) hypertension; Z86.73 Personal history of transient ischemic attack (TIA), and cerebral infarction without residual deficits; I25.2 Old myocardial infarction; E78.5 Hyperlipidemia, unspecified; F17.210 Nicotine dependence, cigarettes, uncomplicated; Z79.84 Long term (current) use of oral hypoglycemic drugs; Z79.899 Other long term (current) drug therapy; Z79.02 Long term (current) use of antithrombotics/antiplatelets
CPT/HCPCS: 71045; 71275; 80053; 81001; 83605; 83880; 84484; 85025; 87040; 87086; 93005; Q9967

== ENCOUNTER 2025-06-11 17:57 | Emergency (ER) | payer MEDICARE, MEDICAID ==
[~2025-06-11 17:57] MED LIST changes: -Iopamidol 370 76% 100 ML VIAL ONE; +Iopamidol-370 76% 500 ML MDV (1 ML CHARGE) ONE
[2025-06-11] MEDS ORDERED: Ondansetron PF 4 MG/2 ML Vial ONE (18:25)
[2025-06-11 19:05] LABS: #Basophils 0.03 10x3/uL (0.0-0.2); #Eosinophils 0.12 10x3/uL (0.0-0.7); #Monocytes 0.88 10x3/uL (0.11-0.59); #Neutrophils 5.30 10x3/uL (1.40-6.50); %Basophils 0.4 % (0.0-1.0); %Eosinophils 1.5 % (0.0-10.0); %Lymphocytes 18.7 % (21.0-51.0); %Monocytes 11.3 % (0.0-10.0); %Neutrophils 67.7 % (42.0-75.0); Hematocrit 42.8 % (42.0-52.0); Hemoglobin 13.4 g/dL (14.0-18.0); Mean Corpuscular Hemoglobin 27.3 pg (27.0-31.0); Mean Corpuscular Volume 87.3 fL (78.0-98.0); Platelet Count 233 10x3/uL (130-400); Red Blood Cell (RBC) Count 4.90 mill/uL (4.70-6.10); White Blood Cell (WBC) Count 7.82 10x3/uL (4.8-10.8)
[2025-06-11 19:22] LABS: INR-International Normal Ratio 1.1; PTT 34.8 sec (22.9-36.1); Prothrombin Time 14.6 sec (12.0-14.7)
[2025-06-11 19:23] LABS: ALT (SGPT) Less than 7 U/L (Less than 45); AST (SGOT) 10 U/L (11-34); Albumin 3.7 g/dL (3.1-4.5); Alkaline Phosphatase 97 U/L (40-110); Anion Gap 13 mmol/L (10-20); BUN (Urea Nitrogen) 18 mg/dL (8.4-25.7); Bilirubin, Total 0.3 mg/dL (0.3-1.2); Calc. Creatinine Clearance 0 mL/min (70-130); Calcium 8.9 mg/dL (7.8-10.44); Carbon Dioxide 26 mmol/L (23-31); Chloride 104 mmol/L (98-107); Globulin 3.3 g/dL (2.4-3.5); Glucose 111 mg/dL (80-115); Lipase 33 U/L (8-78); Magnesium 2.1 mg/dL (1.6-2.6); Potassium 4.1 mmol/L (3.5-5.1); Sodium 139 mmol/L (136-145)
== END 2025-06-11 20:44 | disposition home or self-care (01) ==
LOC: ERS 17:57
DX: J18.9 Pneumonia, unspecified organism (principal); R91.8 Other nonspecific abnormal finding of lung field; E11.9 Type 2 diabetes mellitus without complications; Z86.73 Personal history of transient ischemic attack (TIA), and cerebral infarction without residual deficits; I25.2 Old myocardial infarction; I10 Essential (primary) hypertension; E78.5 Hyperlipidemia, unspecified; F17.210 Nicotine dependence, cigarettes, uncomplicated; Z95.5 Presence of coronary angioplasty implant and graft; Z79.4 Long term (current) use of insulin
CPT/HCPCS: 71045; 71275; 74174; 80053; 83690; 83735; 83880; 84484; 85025; 85610; 85730; 93005; J2270; J2405; 96374; 96375